=== PATIENT | female | born 1960 | race Caucasian/White ===

== ENCOUNTER 2019-10-19 10:41 | Outpatient (CLI) | payer OTHER, SELFPAY ==
[2019-10-19 11:17] LABS: Hemoglobin A1C 6.2 % (<5.7)
[2019-10-19 11:21] LABS: Alanine Aminotransferase 18 U/L (4-35); Albumin Level 4.1 g/dL (3.5-5.1); Alkaline Phosphatase 75 U/L (38-126); Aspartate Amino Transferase 27 U/L (14-36); Bilirubin,Total 0.4 mg/dL (0.2-1.3); Blood Urea Nitrogen 13 mg/dL (7-17); Calcium 9.6 mg/dL (8.4-10.2); Carbon Dioxide 31 mmol/L (22-30); Chloride 102 mmol/L (98-107); Cholesterol 166 mg/dL (0-200); Estimated Glomerular Filt Rate > 60; Glucose 117 mg/dL (65-105); HDL Direct 59 mg/dL; Potassium 4.3 mmol/L (3.4-5.0); Sodium 138 mmol/L (137-145); Triglycerides 67 mg/dL (<150)
[2019-10-19 11:32] LABS: LDL Cholesterol Direct 81 mg/dL
[2019-10-19 11:54] LABS: Free T4 Free Thyroxine 1.33 ng/mL (0.78-2.19)
== END 2019-10-19 10:42 | disposition home or self-care (01) ==
LOC: ANHLAB 10:43
PROVIDERS: PCP Internal Medicine; Visit Provider Nurse Practitioner
DX: E11.9 Type 2 diabetes mellitus without complications (principal); E03.9 Hypothyroidism, unspecified
CPT/HCPCS: 36415; 80053; 80061; 83036; 84439; 84443

== ENCOUNTER 2020-04-10 11:37 | Inpatient (IN) | payer OTHER, SELFPAY ==
--- NOTE | ~2020-04-10 | XR_ITS ---
EXAMINATION: XR chest 2V DATE: 04/10/2020 13:06 INDICATION: Cough and shortness of breath TECHNIQUE: PA and lateral views of the chest are obtained. COMPARISON: 07/23/2018 FINDINGS: There are airspace opacities of the mid and lower lung zones. There is no pleural effusion or pneumothorax. The cardiomediastinal silhouette is normal. There is mild thoracic spondylosis. IMPRESSION: 1. Airspace opacities of the mid and lower lung zones consistent with pneumonia versus atelectasis. Reviewed, dictated and finalized at location A.
--- NOTE | 2020-04-10 12:12 | ECG_ITS ---
Measurements Intervals [place] Rate: 82 P: 57 CA: 135 QRS: 60 QRSD: 118 T: 12 QT: 364 QTc: 426 Interpretive Statements SINUS RHYTHM ATRIAL PREMATURE COMPLEXES INCOMPLETE RIGHT BUNDLE BRANCH BLOCK BASELINE ARTIFACT- I, II BORDERLINE ECG Electronically Signed On 04-10-2020 14:46:30 CDT by Jesus Degroot D.O.
--- NOTE | 2020-04-10 12:15 | PC.NURSE ---
1129- Pt has decided to leave prior to triage and follow up with his pmd.
[2020-04-10 12:51] VITALS: BP 151/60; PULSE 74; RESP 18; TEMP 37.1; O2SAT 95
[2020-04-10 13:04] LABS: Basophils Percent Auto 0.2 % (0.2-1.2); Eosinophils Percent Auto 0.2 % (0-4.4); Hematocrit 44.2 % (37.0-47.0); Hemoglobin 13.5 g/dL (12.0-15.0); Immature Granulocyte Absolute 0.01 K/mm3 (0.00-0.031); Immature Granulocyte Percent A 0.2 % (0-0.5); Lymphocytes Absolute Auto 0.55 K/mm3 (0.9-3.2); Lymphocytes Percent Auto 12.4 % (18.3-44.2); Mean Corpuscular HGB Conc 30.5 g/dl (32-36); Mean Corpuscular Hemoglobin 27.4 pg (26-34); Mean Corpuscular Volume 89.8 fl (80-100); Mean Platelet Volume 9.5 fl (7.4-10.4); Monocytes Absolute Auto 0.4 K/mm3 (0.1-0.6); Monocytes Percent Auto 8.8 % (2.6-8.5); Neutrophils Absolute Auto 3.5 K/mm3 (1.3-6.7); Neutrophils Percent Auto 78.2 % (45.5-73.1); Platelet Count Result 176 k/mm3 (150-375); Red Blood Count 4.92 M/mm3 (4.2-5.4); Red Cell Distribution Width 15.5 % (11.5-14.5); White Blood Count 4.4 K/mm3 (4.5-10.0)
[2020-04-10 13:15] LABS: Anion Gap 7 mmol/L (8-16); Blood Urea Nitrogen 11 mg/dL (7-17); Calcium 9.1 mg/dL (8.4-10.2); Carbon Dioxide 33 mmol/L (22-30); Chloride 100 mmol/L (98-107); Estimated CRCL calculation 94 ml/min; Estimated Glomerular Filt Rate > 60; Glucose 125 mg/dL (65-105); Sodium 140 mmol/L (137-145)
[2020-04-10 15:01] VITALS: BP 158/72; PULSE 91; RESP 18; O2SAT 95
[2020-04-10 15:37] VITALS: BP 158/98; PULSE 91; RESP 18; O2SAT 96
[2020-04-10] MEDS: AZITHROMYCIN 250 MG TABLET 500 MG PO (16:40)
[2020-04-10 17:04] LABS: Alveolar/Arterial O2 Gradient 39.2 mmHg; Base Excess ABG 2.3 mEq/l (+/-2.0); Fractional Inspired Oxygen 21 %; HCO3 ABG 26.2 mEq/l (22.0-26.0); Oxygen Content ABG 17.9 %vol (16.0-22.0); Oxygen Saturation ABG 93.5 % (95.0-100.0); Oxyhemoglobin 92.1 % THb (90.0-100.0); PCO2 ABG 38.6 mmHg (35.0-45.0); PO2 ABG 64.3 mmHg (80.0-100.0); PO2 FiO2 Ratio Arterial Blood 3.06 %; Total Hemoglobin 13.8 g/dL (12.0-18.0)
[2020-04-10] MEDS: ALBUTEROL SULFATE (*SP) AEROSOL 1 PUFF 6 PUFF INHALATION (17:04)
[2020-04-10 17:06] LABS: Device ROOM AIR; Modified Allen's Test Pass; Site Drawn LEFT RADIAL
--- NOTE | 2020-04-10 17:14 | ED.SOB ---
HPI - SOB/Dyspnea General Chief Complaint: Shortness of Breath/Dyspnea Stated Complaint: cough, nausea, sob Time Seen by Provider: 04/10/20 16:08 Source: patient and family Mode of arrival: ambulatory Limitations: no limitations History of Present Illness HPI Narrative: 60-year-old female Complains of feeling bad for at least a week Multiple complaints of which the most severe is a nonproductive cough and shortness of breath which is much worse whenever she gets up and tries to walk around Also complains of poor appetite fatigue sinus drainage She does have a history of what sounds like a decortication procedure done on the left side at [place] several years ago Recently traveled to the [facility] Her who she lives with is not ill MD elicited complaint: shortness of breath and cough Pertinent past history: COPD and asthma Related Data Home Medications Medication Instructions Recorded Confirmed albuterol sulfate [ProAir HFA] 1 inh INHALATION QID PRN 04/30/19 04/30/19 tizanidine 4 - 8 mg PO Q8H PRN 04/30/19 04/30/19 Allergies Allergy/AdvReac Type Severity Reaction Status Date / Time No Known Allergies Allergy Verified 05/07/19 14:30 Review of Systems Review of Systems: All systems reviewed & are unremarkable except as noted in HPI and below Constitutional: Constitutional: Reports chills, Reports fatigue, Reports fever(s), Denies headache(s) and Denies night sweats Eyes: Eyes: Denies change in vision, Denies loss of vision and Denies other visual disturbances ENT: Denies headache(s), Denies hoarseness, Denies epistaxis, Reports nasal congestion and Denies sore throat Cardiovascular: Cardiovascular: Denies chest pain, Denies leg edema, Denies palpitations and Denies dyspnea Respiratory: Respiratory: Reports cough, Reports dyspnea and Denies wheezing Gastrointestinal: Gastrointestinal: Denies abdominal pain, Denies diarrhea, Reports nausea and Denies vomiting Genitourinary: Genitourinary: Denies hematuria, Denies urinary frequency and Denies dysuria Musculoskeletal: Musculoskeletal: Denies abnormal gait, Reports myalgias, Denies deformity, Denies joint swelling, Denies muscle weakness and Denies numbness Integumentary/Breasts: Skin/Breast: Denies rash, Denies unusual bruising and Denies wounds Neurologic: Denies abnormal gait, Denies headache(s), Denies focal weakness, Denies loss of vision and Denies numbness Psychiatric: Psychiatric: Reports no additional psychiatric complaints Endocrine: Endocrine: Denies palpitations Hematologic/Lymphatic: Hematologic/Lymphatic: Denies easy bleeding and Denies easy bruising Allergic/Immunologic: Allergic/Immunologic: Denies wheezing [facility] Past Medical History Medical History (Updated 04/10/20 @ 18:05 by Jamal Beckman MD) Arthritis Asthma exercise induced Diabetes type 2, controlled GERD (gastroesophageal reflux disease) Hypertension Hypothyroidism Liver disease Obesity YOANA (obstructive sleep apnea) CPAP Surgical History Surgical History (Updated 08/27/19 @ 15:26 by Omayra Hidalgo MA) History of x2 History of cholecystectomy History of nasal septoplasty History of thoracotomy Partial Thoracotomy History of tubal ligation Hx of tonsillectomy Right tibial fracture treated with intramedullary rodding Family History Family History Mother Hypertension Family history of heart disease in male family member before age 55 Father Cerebrovascular accident Family history of diabetes mellitus in first degree relative Family history of malignant neoplasm of kidney Family history of heart disease in male family member before age 55 Sibling Family history of diabetes mellitus in first degree relative Grandparent Diabetes mellitus Other Family history of cardiovascular disease Social History Social History (Updated 08/27/19 @ 15:27 by Omayra Hidalgo
[2020-04-10] MEDS: ACETAMINOPHEN 325 MG TABLET 650 MG (17:18)
[2020-04-10 17:38] LABS: CRP 2.9 mg/dL (<1.0)
[2020-04-10 17:42] VITALS: BP 138/78; PULSE 88; RESP 20; O2SAT 91
--- NOTE | 2020-04-10 17:42 | PC.NURSE ---
patient walked cisneros with pulse ox. desats to 88% with ambulation
[2020-04-10] MEDS: ONDANSETRON INJ 4 MG/2 ML VIAL IV PUSH (18:41)
[2020-04-10 18:50] VITALS: BP 166/89; PULSE 107; RESP 20; TEMP 36.7; O2SAT 90
--- NOTE | 2020-04-10 18:50 | ADMGEN ---
This patient, Madelin Fitzpatrick, was admitted to [facility] Surg Room 327-01. Patient/family oriented to hospital policies and general routines including ID bracelet, bed and alarms, visiting hours, pain management, procedures, bathroom and other care routines, personal items, smoking policy, room service/diet, and visiting hours. Information on how to activate the Rapid Response Team has been discussed. Patient/Family are encouraged to report perceived risks to care and to ask questions if they do not understand what they are told or what they should do.
--- NOTE | 2020-04-10 18:57 | PC.NURSE ---
1853 pt arrived from er, in w/c a/o x3 not distress. placed in room 127
[2020-04-10 20:00] VITALS: BP 134/79; PULSE 92; RESP 18; TEMP 36.7; O2SAT 91
[2020-04-10] MEDS: LACTATED RINGERS 1,000 ML 60 ML IV CONT (20:21)
[2020-04-11] VITALS: BP 142/79; BP 146/63; PULSE 62; PULSE 77; RESP 20; TEMP 36.6; O2SAT 90; O2SAT 93
--- NOTE | 2020-04-11 00:05 | PM.IMHP ---
H&P: HPI History of Present Illness Date/Time: 04/10/20 7950 Chief complaint: Pneumonia Narrative: Madelin Fitzpatrick is a 60 year old female Who has had a past history of having necrotizing pneumonia in the past and had to have have a thoracotomy Or a decortication procedure. She has a history of sleep apnea and does have her CPAP machine. The patient stated that she has been feeling bad for at least the last week. She really did have temperature until today she said her fever was about 100 today. She said she went to [place] in [facility] to celebrate her birthday a week ago and she had drink a lot a alcohol and thought that maybe that she was just having some discomfort from drinking so much alcohol. She has been feeling achy and she has had a productive cough. She said she took code medicine. She said she can't even walk 10 ft without getting short of breath or coughing her head off. When she tries to walk around to get short of breath and coughs. She has not had any change in taste of food but just has not had the appetite and she has had some nausea and abdominal pain as well. she stated that the other people or not having any symptoms at went to [place] with her. She stated that her stay daughter was having some sinus problems but that is chronic for her. She does have a history of asthma as well. Her white count was low at 4.4. Her glucose is 125 and she has not taken her metformin because she has not been eating. C reactive protein 2.9. Her COVID swab is pending. She has been placed on isolation. Chest x-ray was read as airspace opacities of the mid and lower lung zones consistent with pneumonia versus atelectasis. She was started on azithromycin and Rocephin. Also Decadron. Date of service was 04/10/2020 Review of Systems Review of Systems: All systems reviewed & are unremarkable except as noted in HPI and below Constitutional: Constitutional: Reports as per HPI and Reports no additional constitutional complaints Eyes: Eyes: Reports as per HPI and Reports no additional eye complaints ENT: Reports system reviewed and no additional complaints, except as documented and Reports Normal hearing present Cardiovascular: Cardiovascular: Reports no additional cardiovascular complaints Respiratory: Respiratory: Reports no additional respiratory complaints and Reports no additional respiratory complaints Gastrointestinal: Gastrointestinal: Reports as per HPI and Reports no additional gastrointestinal complaints Musculoskeletal: Musculoskeletal: Reports no additional musculoskeletal complaints Integumentary/Breasts: Skin/Breast: Reports system reviewed and no additional complaints, except as docu and Reports as per HPI Neurologic: Reports system reviewed and no additional complaints, except as documented, Reports as per HPI and Reports Normal hearing present Psychiatric: Psychiatric: Reports no additional psychiatric complaints and Reports as per HPI Endocrine: Endocrine: Reports no additional endocrine complaints Hematologic/Lymphatic: Hematologic/Lymphatic: Reports no additional hematologic/lymphatic complaints Allergic/Immunologic: Allergic/Immunologic: Reports no additional allergic/immunologic complaints [facility] Past Medical History Medical History (Updated 04/11/20 @ 00:24 by Sheila Raymundo NP) Arthritis Asthma exercise induced Diabetes type 2, controlled GERD (gastroesophageal reflux disease) Hypertension Hypothyroidism Liver disease Obesity YOANA (obstructive sleep apnea) CPAP Surgical History Surgical History History of x2 History of cholecystectomy History of nasal septoplasty History of thoracotomy Partial Thoracotomy History of tubal ligation Hx of tonsillectomy Right tibial fracture treated with intramedullary rodding Family History Family History Mother Hyp
[2020-04-11 06:00] VITALS: BP 161/87; PULSE 80; RESP 20; TEMP 36.6; O2SAT 93
[2020-04-11] MEDS: LEVOTHYROXINE SODIUM 100 MCG TABLET PO (06:07)
[2020-04-11 06:35] LABS: Hematocrit 39.3 % (37.0-47.0); Hemoglobin 12.1 g/dL (12.0-15.0); Immature Granulocyte Absolute 0.01 K/mm3 (0.00-0.031); Immature Granulocyte Percent A 0.7 % (0-0.5); Lymphocytes Absolute Auto 0.42 K/mm3 (0.9-3.2); Lymphocytes Percent Auto 27.8 % (18.3-44.2); Mean Corpuscular HGB Conc 30.8 g/dl (32-36); Mean Corpuscular Hemoglobin 26.7 pg (26-34); Mean Corpuscular Volume 86.8 fl (80-100); Mean Platelet Volume 9.2 fl (7.4-10.4); Monocytes Absolute Auto 0.2 K/mm3 (0.1-0.6); Monocytes Percent Auto 14.6 % (2.6-8.5); Neutrophils Absolute Auto 0.9 K/mm3 (1.3-6.7); Neutrophils Percent Auto 56.9 % (45.5-73.1); Platelet Count Result 178 k/mm3 (150-375); Red Blood Count 4.53 M/mm3 (4.2-5.4); Red Cell Distribution Width 14.9 % (11.5-14.5)
[2020-04-11 06:48] LABS: Lactic Acid Reflex 0.9 mmol/L (0.7-2.1)
[2020-04-11 06:50] LABS: CRP 3.2 mg/dL (<1.0); Lipase 101 U/L (23-300); Magnesium 1.9 mg/dL (1.6-2.3)
[2020-04-11 07:29] LABS: White Blood Count 1.5 K/mm3 (4.5-10.0)
[2020-04-11 07:36] LABS: Thyroid Stimulating Hormone Reflex 0.616 uIU/mL (0.465-4.68)
[2020-04-11 07:47] LABS: Anion Gap 7 mmol/L (8-16); Blood Urea Nitrogen 12 mg/dL (7-17); Calcium 8.9 mg/dL (8.4-10.2); Carbon Dioxide 30 mmol/L (22-30); Chloride 102 mmol/L (98-107); Estimated CRCL calculation 122 ml/min; Estimated Glomerular Filt Rate > 60; Glucose 136 mg/dL (65-105); Potassium 3.9 mmol/L (3.4-5.0); Sodium 139 mmol/L (137-145)
[2020-04-11] MEDS: PANTOPRAZOLE SOD SESQUIHYDRATE 20 MG TAB PO ×2 (08:26→16:38)
[2020-04-11] MEDS: lisinopriL 20 MG TABLET PO (08:27)
[2020-04-11 09:05] VITALS: PULSE 85; RESP 18; O2SAT 95
[2020-04-11 09:15] LABS: White Blood Count 2.2 K/mm3 (4.5-10.0)
[2020-04-11 11:53] LABS: Glucose Point of Care 146 (65-105)
[2020-04-11] MEDS: LACTATED RINGERS 1,000 ML 60 ML IV CONT (12:15)
[2020-04-11] MEDS: ACETAMINOPHEN 325 MG TABLET 650 MG PO ×2 (12:23→19:08)
[2020-04-11 14:00] VITALS: BP 145/73; PULSE 68; RESP 16; TEMP 36.7; O2SAT 92
[2020-04-11 14:12] LABS: SARS-CoV-2 RNA PCR Positive
--- NOTE | 2020-04-11 15:15 | PM.IMPN ---
Progress Note: A&P Assessment and Plan (1) Pneumonia due to 2019 novel coronavirus: Code(s): U07.1 - COVID-19; J12.89 - Other viral pneumonia Status: Acute Assessment and Plan: Patient tested positive for COVID on 04/10/2020. Symptoms had been ongoing approximately 7 days. She complains of productive cough and [place]. She is maintaining adequate oxygen saturations on room air. she has remained afebrile. At this time, there is no indication for steroids or antiviral therapy as she has no oxygen requirements continue isolation precautions discontinue IV antibiotics which were initiated for possible bacterial pneumonia; superimposed bacterial infection is unlikely Supportive care with antipyretics, expectorants, and bronchodilators Supplemental O2 as needed to maintain O2 saturations >92% (2) YOANA (obstructive sleep apnea): Code(s): G47.33 - Obstructive sleep apnea (adult) (pediatric) Status: Acute Assessment and Plan: Continue CPAP titrated to home settings (3) Hypothyroidism: Code(s): E03.9 - Hypothyroidism, unspecified Status: Chronic Assessment and Plan: TSH is within limits continue levothyroxine (4) Hypertension: Code(s): I10 - Essential (primary) hypertension Status: Chronic Assessment and Plan: blood pressures reviewed and are reasonably controlled in 140s to 150 systolic. continue lisinopril monitor blood pressures daily (5) Diabetes type 2, controlled: Code(s): E11.9 - Type 2 diabetes mellitus without complications Status: Chronic Assessment and Plan: Most recent A1c is 6.2 from September 2019. Blood sugars have been generally well controlled. Continue Accu-Cheks achs, SSI, and hypoglycemia protocol check updated A1c metformin is on hold at this time (6) Leukopenia: Code(s): D72.819 - Decreased white blood cell count, unspecified Status: Acute Assessment and Plan: White blood cell count is low. Upon review of prior labs, this seems to be a new finding. Lymphocyte count is low. This can likely be attributed to acute viral infection. Immunodeficiency or malignant etiologies cannot be excluded at this time, therefore careful monitoring will be required. Subjective Date/time seen: 04/11/20 15:15 Interval history: Date of service: 04/11/2020 Madelin Fitzpatrick is a 60 year old female with a history of asthma, YOANA, hypertension,, type 2 diabetes mellitus who is seen in follow-up for COVID-19 pneumonia. she reports that she is feeling much better today as compared to presentation. She continues to endorse cough productive of clear sputum. She endorses dyspnea on exertion and minimal activity will induce coughing episodes. She denies shortness of breath at rest. She denies orthopnea or PND. She denies chest pain or palpitations. She previously was experiencing nausea and vomiting but this seems to be improving. She has not vomited since admission. She had a loose stool this morning. She denies dysuria or hematuria. Her appetite is diminished. She denies anosmia or dysgeusia. Denies dizziness or lightheadedness. She has a dull headache. Review of Systems Review of Systems: Narrative: Twelve systems reviewed with pertinent positives and negatives as per HPI. Exam Narrative: Exam Narrative: Ms. Fitzpatrick is an obese, well-appearing 60-year-old female who is lying supine in bed. She appears comfortable and is in NARD. HR 80, BP 161/87, RR 20, T 97.8?, 93% on room air Neuro: awake, alert and oriented x4, speech clear, no focal neuro deficits noted HEENMT: normocephalic, atraumatic, EOMI, sclerae anicteric, moist oral mucosa, tongue midline, nares patent Neck: supple, no lymphadenopathy Respiratory: clear to auscultation bilaterally, no crackles, wheezes, or rhonchi noted with low-sensitivity isolation stethoscope, nonlabored breathing Cardio: regular rat
[2020-04-11 17:08] LABS: Glucose Point of Care 132 (65-105)
[2020-04-11 20:00] VITALS: BP 152/74; PULSE 72; RESP 18; TEMP 36.7; O2SAT 93
[2020-04-11] MEDS: guaiFENesin 12 HR 600 MG TABCR PO (21:17)
[2020-04-11 22:26] LABS: Glucose Point of Care 167 (65-105)
[2020-04-12] MEDS: ACETAMINOPHEN 325 MG TABLET 650 MG PO ×2 (03:01→08:31)
[2020-04-12 04:00] VITALS: BP 153/75; PULSE 66; RESP 18; TEMP 36.9; O2SAT 92
[2020-04-12] MEDS: LEVOTHYROXINE SODIUM 100 MCG TABLET PO (06:16)
[2020-04-12 06:17] VITALS: O2SAT 91
[2020-04-12] MEDS: LACTATED RINGERS 1,000 ML 60 ML IV CONT (06:17)
[2020-04-12 06:54] LABS: Hematocrit 40.3 % (37.0-47.0); Hemoglobin 12.4 g/dL (12.0-15.0); Mean Corpuscular HGB Conc 30.8 g/dl (32-36); Mean Corpuscular Hemoglobin 27.4 pg (26-34); Mean Platelet Volume 9.3 fl (7.4-10.4); Platelet Count Result 193 k/mm3 (150-375); Red Blood Count 4.53 M/mm3 (4.2-5.4); Red Cell Distribution Width 15.1 % (11.5-14.5); White Blood Count 5.2 K/mm3 (4.5-10.0)
[2020-04-12 07:18] LABS: Alanine Aminotransferase 25 U/L (4-35); Albumin Level 3.5 g/dL (3.5-5.1); Alkaline Phosphatase 60 U/L (38-126); Anion Gap 3 mmol/L (8-16); Aspartate Amino Transferase 38 U/L (14-36); Bilirubin,Total 0.4 mg/dL (0.2-1.3); Blood Urea Nitrogen 13 mg/dL (7-17); Calcium 8.9 mg/dL (8.4-10.2); Carbon Dioxide 36 mmol/L (22-30); Chloride 100 mmol/L (98-107); Estimated CRCL calculation 106 ml/min; Estimated Glomerular Filt Rate > 60; Glucose 104 mg/dL (65-105); Lactate Dehydrogenase 476 U/L (313-618); Potassium 3.5 mmol/L (3.4-5.0); Sodium 139 mmol/L (137-145)
[2020-04-12 07:46] LABS: Hemoglobin A1C 6.3 % (<5.7)
[2020-04-12 08:00] VITALS: PULSE 73; RESP 18; O2SAT 90
[2020-04-12] MEDS: lisinopriL 20 MG TABLET PO (08:08)
[2020-04-12] MEDS: guaiFENesin 12 HR 600 MG TABCR PO (08:08)
[2020-04-12] MEDS: ENOXAPARIN 40 MG/0.4 ML SYRINGE SUB-Q (08:08)
[2020-04-12] MEDS: PANTOPRAZOLE SOD SESQUIHYDRATE 20 MG TAB PO (08:09)
[2020-04-12 09:30] VITALS: TEMP 37.3
[2020-04-12 11:06] LABS: Glucose Point of Care 93 (65-105)
--- NOTE | 2020-04-12 11:09 | PM.DS ---
DS: Admitting Diagnosis Admitting Diagnosis Admitting Diagnosis: Pneumonia DS: Discharge Diagnosis Discharge Diagnosis (1) Pneumonia due to 2019 novel coronavirus: Code(s): U07.1 - COVID-19; J12.89 - Other viral pneumonia Status: Acute Assessment and Plan: Patient tested positive for COVID-19 on 04/10/2020. Symptoms had been ongoing approximately 7 days. She remained afebrile. She did not require any supplemental oxygen. Given her lack of oxygen requirements, there was no indication for IV steroids or antivirals. She was initially started on IV ceftriaxone and azithromycin for possible bacterial pneumonia which was discontinued after positive covid result was obtained. Supportive care was provided including bronchodilators and mucinex. Discussed need for self-isolation for 10 days following symptom onset, improvement of symptoms, and afebrile >24 hours without antipyretics. (2) YOANA (obstructive sleep apnea): Code(s): G47.33 - Obstructive sleep apnea (adult) (pediatric) Status: Acute Assessment and Plan: CPAP was not used during hospital stay due to risk for aerosolization. Recommended that she avoid using CPAP at home until she met criteria for discontinuing isolation, 10 days after onset of symptoms and symptomatic improvement. (3) Hypothyroidism: Code(s): E03.9 - Hypothyroidism, unspecified Status: Chronic Assessment and Plan: TSH is within limits. Continue levothyroxine (4) Hypertension: Code(s): I10 - Essential (primary) hypertension Status: Chronic Assessment and Plan: Blood pressures reviewed dailhy and remained reasonably controlled in the 140-150s. Continue lisinopril. (5) Diabetes type 2, controlled: Code(s): E11.9 - Type 2 diabetes mellitus without complications Status: Chronic Assessment and Plan: A1c is 6.3 (04/12/20) Blood sugars reviewed daily and remained well controlled. Continue metformin. (6) Leukopenia: Code(s): D72.819 - Decreased white blood cell count, unspecified Status: Acute Assessment and Plan: White blood cell count low with low lymphocytes. Upon review of prior labs, this seems to be a new finding. This can more than likely be attributed to acute viral infection. Immunodeficiency or malignant etiologies considered, but felt to be less likely given WBC improvement. WBC improved to 5.2 at time of discharge, supporting acute viral infection as most likely etiology. She should repeat CBC in 1 week and follow up with PCP. DS: Summary Hospital Course Reason for hospitalization: shortness of breath Hospital Course: date of admission: 04/10/2020 date of discharge: 04/12/2020 Madelin Fitzpatrick is 6-year-old female with a history of asthma, type 2 diabetes mellitus, hypertension, hypothyroidism, and YOANA presented to the emergency department on 04/10/2020 with complaints of shortness of breath and cough productive of clear sputum, poor appetite, and fatigue. She had recently traveled with a group of friends but denies any sick contacts. At presentation, vital signs stable and afebrile, WBC 4.4, H&H 13.5 and 44.2, platelets 176, electrolytes stable, glucose 125, CRP 2.9, ABG performed demonstrating hypoxemia, and CXR with airspace opacities of the mid and lower lung zones consistent with pneumonia. She was admitted to the hospitalist service for further evaluation and treatment. She was tested for COVID and positive result was reported on 04/11/2020. She required brief 2 L supplemental oxygen overnight as she was not able to use her CPAP machine due to risk for aerosolization. Other than that, she had no oxygen requirements. Because of this no antivirals or steroids were indicated. Her dyspnea on exertion improved and her cough loosened. Preliminary blood cultures showed NGTD and final cultures will be monitored. She began feeling much better and requested discharge home, where she
[2020-04-12 12:20] LABS: Procalcitonin <0.10 ng/mL (<0.10)
== END 2020-04-12 11:33 | disposition home or self-care (01) | DRG 177 ==
LOC: ANHED 18:05 → ANH3MEDSUR 04-11 01:15
PROVIDERS: Nurse Practitioner; Admitting Provider Internal Medicine; Emergency Provider Emergency Medicine; PCP Internal Medicine; Visit Provider Physician Assistant
DX: U07.1 COVID-19 (principal); J12.89 Other viral pneumonia; G47.33 Obstructive sleep apnea (adult) (pediatric); E03.9 Hypothyroidism, unspecified; I10 Essential (primary) hypertension; E11.9 Type 2 diabetes mellitus without complications
CPT/HCPCS: 36415; 36600; 71046; 80048; 80053; 82728; 82805; 83036; 83605; 83615; 83690; 83735; 84145; 84443; 85025; 85027; 85048; 86140; 87040; 87635; 93005; 94667; 96374; 99285; A9270; C9803; J0696; J1100; J1650; J2405; J7120; U0003

== ENCOUNTER 2020-04-25 11:56 | Outpatient (CLI) | payer OTHER, SELFPAY ==
[2020-04-25 12:20] LABS: Alanine Aminotransferase 27 U/L (4-35); Albumin Level 4.2 g/dL (3.5-5.1); Alkaline Phosphatase 60 U/L (38-126); Anion Gap 7 mmol/L (8-16); Aspartate Amino Transferase 40 U/L (14-36); Bilirubin,Total 0.4 mg/dL (0.2-1.3); Blood Urea Nitrogen 12 mg/dL (7-17); Calcium 9.9 mg/dL (8.4-10.2); Carbon Dioxide 33 mmol/L (22-30); Chloride 102 mmol/L (98-107); Cholesterol 158 mg/dL (0-200); Estimated Glomerular Filt Rate > 60; Glucose 109 mg/dL (65-105); HDL Direct 54 mg/dL; Potassium 4.7 mmol/L (3.4-5.0); Sodium 142 mmol/L (137-145); Triglycerides 177 mg/dL (<150)
[2020-04-25 12:31] LABS: LDL Cholesterol Direct 72 mg/dL
[2020-04-25 12:51] LABS: Thyroid Stimulating Hormone 0.633 uIU/mL (0.465-4.680)
== END 2020-04-25 11:57 | disposition home or self-care (01) ==
PROVIDERS: PCP Internal Medicine; Visit Provider Internal Medicine
DX: E78.5 Hyperlipidemia, unspecified (principal); Z79.899 Other long term (current) drug therapy; I10 Essential (primary) hypertension; E11.9 Type 2 diabetes mellitus without complications; E03.9 Hypothyroidism, unspecified
CPT/HCPCS: 36415; 80053; 80061; 83036; 84443

== ENCOUNTER → 2020-07-15 11:54 | Outpatient (CLI) | payer OTHER, SELFPAY ==
--- NOTE | ~2020-07-15 | US_ITS ---
EXAMINATION: US thyroid DATE: 07/15/2020 12:17 INDICATION: Nontoxic multinodular goiter. TECHNIQUE: Multiple ultrasound images of the thyroid were obtained. COMPARISON: Ultrasound 07/08/2017, 04/21/2015 FINDINGS: The right thyroid lobe measures 3.7 x 1.2 x 1.0 cm. The left thyroid lobe measures 4.2 x 1.9 x 1.5 c m. The thyroid is diffusely heterogeneous and hypoechoic. No discrete nodule. Vascularity is normal. IMPRESSION: 1. Chronically heterogeneous thyroid, likely chronic thyroiditis. Reviewed, dictated and finalized at location B. DRIER
== END ==
PROVIDERS: PCP Internal Medicine; Visit Provider Nurse Practitioner
DX: E04.9 Nontoxic goiter, unspecified (principal)
CPT/HCPCS: 76536

== ENCOUNTER 2020-10-10 09:30 | Outpatient (CLI) | payer OTHER, SELFPAY ==
[2020-10-10 09:58] LABS: Alanine Aminotransferase 22 U/L (4-35); Albumin Level 4.1 g/dL (3.5-5.1); Alkaline Phosphatase 64 U/L (38-126); Anion Gap 3 mmol/L (8-16); Aspartate Amino Transferase 37 U/L (14-36); Bilirubin,Total 0.4 mg/dL (0.2-1.3); Blood Urea Nitrogen 13 mg/dL (7-17); Calcium 9.4 mg/dL (8.4-10.2); Carbon Dioxide 34 mmol/L (22-30); Chloride 104 mmol/L (98-107); Estimated Glomerular Filt Rate 57; Glucose 140 mg/dL (65-105); Potassium 4.5 mmol/L (3.4-5.0); Sodium 141 mmol/L (137-145)
[2020-10-10 10:24] LABS: Creatinine Urine 157.8 mg/dL
[2020-10-10 10:29] LABS: MALB Creatinine Ratio 5.2 mg/g (0-30); Microalbumin Urine Random 8.2 mg/L (0-16.7)
== END 2020-10-10 09:31 | disposition home or self-care (01) ==
PROVIDERS: PCP Internal Medicine; Visit Provider Nurse Practitioner
DX: E03.9 Hypothyroidism, unspecified (principal); E11.9 Type 2 diabetes mellitus without complications
CPT/HCPCS: 36415; 80053; 82043; 83036; 84443

== ENCOUNTER 2020-11-12 09:01 | Outpatient (CLI) | payer OTHER, SELFPAY ==
--- NOTE | ~2020-11-12 | MM_ITS ---
EXAMINATION: MM screening [facility] w rizwan HISTORY: Screening TECHNIQUE: Craniocaudal and mediolateral oblique 3-D tomosynthesis images were obtained and synthetic 2-D images were generated. CAD analysis was submitted and interpreted. COMPARISON: Comparison to multiple prior studies sequentially, with oldest reviewed study dated 04/27. BREAST PARENCHYMAL COMPOSITION: There are scattered areas of fibroglandular density. FINDINGS: There is no evidence of suspicious mass, calcification, or architectural distortion to sugg est malignancy in either breast. There has been no suspicious interval change. IMPRESSION: 1. No mammographic evidence of malignancy. 2. Recommend routine screening mammography in one year. BI-RADS Category 1: Negative Reviewed, dictated and finalized at location A.
== END 2020-11-12 09:02 | disposition home or self-care (01) ==
LOC: ANHIMG 09:03
PROVIDERS: PCP Internal Medicine; Visit Provider Nurse Practitioner
DX: Z12.31 Encounter for screening mammogram for malignant neoplasm of breast (principal)
CPT/HCPCS: 77063; 77067

== ENCOUNTER 2020-12-10 15:21 | Outpatient (CLI) | payer OTHER, SELFPAY ==
--- NOTE | ~2020-12-10 | US_ITS ---
EXAMINATION: US venous doppler [facility] EXAM DATE: 12/10/2020 16:10 INDICATION: Left leg pain. TECHNIQUE: Multiple grayscale, color flow and Doppler images of the left lower extremity deep venous system were obtained and reviewed. Comparison is made to prior examination from 06/16/2019. FINDINGS: The left common femoral, femoral and profunda veins demonstrate normal color flow, respirat ory variation, augmentation and compressibility. Compressibility, color flow confirmed within the le ft popliteal, posterior tibial, peroneal, and greater saphenous veins. IMPRESSION: 1. No left lower extremity deep venous thrombosis. Reviewed, dictated and finalized at location B.
== END 2020-12-10 15:22 | disposition home or self-care (01) ==
LOC: ANHIMG 15:25
PROVIDERS: PCP Internal Medicine; Visit Provider Nurse Practitioner
DX: M79.604 Pain in right leg (principal)
CPT/HCPCS: 93971

== ENCOUNTER 2021-01-07 09:26 | Outpatient (CLI) | payer OTHER, SELFPAY ==
--- NOTE | ~2021-01-07 | DEXA_ITS ---
Bone Density Report Name: Madelin Fitzpatrick Age: 60 Sex: Female Ethnicity: White Date of : 1960 Indication: postmenopausal; inflammatory bowel disease; Referring Provider: Madelin Mason Study: Bone densitometry was performed. Exam Date: January 07, 2021 Accession number: [id number] Bone Density: Region BMD T-score Z-score Classification AP Spine (L1-L4) 1.081 0.3 1.8 Normal Femoral Neck (Left) 0.721 -1.2 0.2 Osteopenia Total Hip (Left) 1.051 0.9 1.9 Normal Total Hip Bilateral Avg 1.041 0.8 1.8 Normal Femoral Neck (Right) 0.796 -0.5 0.8 Normal Total Hip (Right) 1.029 0.7 1.7 Normal World Health Organization criteria for BMD impression classify patients as: Normal (T-score at or above -1.0), Osteopenia (T-score between -1.0 and -2.5), or Osteoporosis (T-score at or below -2.5). 10-year Fracture Risk(1): Major Osteoporotic Fracture 6.1% Hip Fracture 0.3% Reported Risk Factors: [place] (), Neck BMD=0.721, BMI=48.1 Input outside FRAX(R) limits. Adjusted to:Dniksp=552 kg (1) FRAX(R) Version 3.08. Fracture probability calculated for an untreated patient. Fracture probability may be lower if the patient has received treatment. Clinical Information Provided by Patient: Has the following medical conditions: Inflammatory bowel diseases Patient maximum height was 63.5 Menopause Age: 55 No regular weight bearing exercise Drinks caffeinated beverages Onset of menses at age 13 Number of children 2 Impression: The patient has low bone mass, based on the Left Femoral Neck T-score. The patient has an estimated ten-year risk of hip fracture of 0.3% and an estimated ten-year risk of major fracture of 6.1%, based on the WHO FRAX algorithm. Discussion: BONE DENSITY IS LOW AT ONE OR MORE SKELETAL SITES. This patient's lowest T-score is low at one or more skeletal sites. It meets the World Health Organization's (WHO) criteria for ?low bone mass? (T-score between -1.0 and -2.5). The patient's 10-year risk of fracture as calculated by FRAX is less than the threshold where pharmacological therapy is recommended by the National Osteoporosis Foundation (NOF). However, all treatment decisions require clinical judgment and consideration of individual patient factors, including patient preferences, comorbidities, previous drug use, risk factors not captured in the FRAX model (e.g., frailty, falls, vitamin D deficiency, increased bone turnover, interval significant decline in bone density) and possible under or overestimation of fracture risk by FRAX. The patient should follow a healthful lifestyle (good nutrition with adequate calcium and vitamin D, and appropriate weight-bearing exercise). Follow-Up: Consider repeating this study in 2 to 3 years to reassess this patient's status, or sooner if there is some new cli
== END 2021-01-07 09:27 | disposition home or self-care (01) ==
LOC: ANHIMG 09:28
PROVIDERS: PCP Internal Medicine; Visit Provider Nurse Practitioner
DX: Z78.0 Asymptomatic menopausal state (principal); M85.852 Other specified disorders of bone density and structure, left thigh
CPT/HCPCS: 77080

== ENCOUNTER → 2021-03-20 09:59 | Outpatient (CLI) | payer OTHER, SELFPAY ==
--- NOTE | ~2021-03-20 | US_ITS ---
EXAMINATION: US pelvic complete w TV DATE: 03/20/2021 10:24 INDICATION: Postmenopausal bleeding Comparison:No prior studies for comparison. TECHNIQUE: Multiple transabdominal and endovaginal sonographic images of the pelvis performed. FINDINGS: The uterus measures 11.3 x 3.9 x 5.1 cm. The endometrial complex measures 7 mm. The ovaries are not visualized. No adnexal masses or fluid collections. There is no free fluid in the pelvis. There are no abnormal masses seen on either side. IMPRESSION: 1. Thickened endomtrial complex. The differential diagnosis includes endometrial hyperplasia, polyp a nd carcinoma. Biopsy is recommended. 2: Enlarged uterus. Reviewed, dictated and finalized at location A. IMPRESSION: 1. Thickened endomtrial complex. The differential diagnosis includes endometria l hyperplasia, polyp and carcinoma. Biopsy is recommended. 2: Enlarged uterus.
== END ==
PROVIDERS: PCP Internal Medicine; Visit Provider Obstetrics & Gynecology
DX: N95.0 Postmenopausal bleeding (principal); R93.89 Abnormal findings on diagnostic imaging of other specified body structures; N85.2 Hypertrophy of uterus
CPT/HCPCS: 76830; 76856

== ENCOUNTER 2021-04-24 10:59 | Outpatient (CLI) | payer OTHER, SELFPAY ==
[2021-04-24 12:02] LABS: Alanine Aminotransferase 24 U/L (4-35); Albumin Level 4.5 g/dL (3.5-5.1); Alkaline Phosphatase 70 U/L (38-126); Anion Gap 7 mmol/L (8-16); Aspartate Amino Transferase 35 U/L (14-36); Bilirubin,Total 0.5 mg/dL (0.2-1.3); Blood Urea Nitrogen 15 mg/dL (7-17); Carbon Dioxide 32 mmol/L (22-30); Chloride 102 mmol/L (98-107); Cholesterol 174 mg/dL (0-200); Estimated Glomerular Filt Rate > 60; Glucose 119 mg/dL (65-110); HDL Direct 74 mg/dL; Potassium 4.6 mmol/L (3.4-5.0); Sodium 141 mmol/L (137-145); Triglycerides 61 mg/dL (<150)
[2021-04-24 12:12] LABS: LDL Cholesterol Direct 73 mg/dL
== END 2021-04-24 11:00 | disposition home or self-care (01) ==
LOC: ANHLAB 11:01
PROVIDERS: PCP Internal Medicine; Visit Provider Nurse Practitioner
DX: E11.9 Type 2 diabetes mellitus without complications (principal); E03.9 Hypothyroidism, unspecified
CPT/HCPCS: 36415; 80053; 80061; 83036; 84443

== ENCOUNTER 2021-04-25 11:08 | Emergency (ER) | payer OTHER, SELFPAY ==
[2021-04-25 11:17] VITALS: BP 172/68; PULSE 77; RESP 18; TEMP 36.3; O2SAT 98
--- NOTE | 2021-04-25 11:42 | ED.URI ---
HPI - URI/Sore Throat General Chief Complaint: Upper Respiratory Infection Stated Complaint: SINUS CONGESTION Time Seen by Provider: 04/25/21 11:26 Source: patient and RN notes reviewed Mode of arrival: ambulatory Limitations: no limitations History of Present Illness HPI Narrative: Patient presents today complaining of 5-day history of left frontal headache, left maxillary sinus pain. Denies nasal congestion, cough, sore throat. She has been taking Mucinex and using Nasacort with some relief. Patient uses a CPAP, which has been exacerbating her symptoms.. Patient is scheduled for hysteroscopy in 3 days and wanted to make sure she did not need to get started on antibiotics. MD elicited complaint: sinus pain Related Data Home Medications Medication Instructions Recorded Confirmed albuterol sulfate [ProAir HFA] 1 inh INHALATION QID PRN 04/30/19 04/17/21 multivitamin 1 tablet PO DAILY 10/14/20 04/17/21 Allergies Allergy/AdvReac Type Severity Reaction Status Date / Time No Known Allergies Allergy Verified 04/17/21 10:09 Review of Systems Review of Systems: CONSTITUTIONAL: Denies body aches, fever, chills, or sweats. EYES: Denies visual changes, redness, or discharge. ENT: Denies rhinorrhea, congestion, sore throat, or otalgia. + Sinus pain and pressure CARDIOVASCULAR: Denies chest pain, palpitations, or edema. RESPIRATORY: Denies cough or dyspnea. GASTROINTESTINAL: Denies abdominal pain, nausea, vomiting, or diarrhea. GENITOURINARY: Denies dysuria or hematuria. SKIN: Denies rash, itching, or wounds. MUSCULOSKELETAL: Denies back pain, joint pain, or myalgia. NEUROLOGIC: Denies headache, numbness, tingling, or weakness. PSYCH: Denies depression or anxiety. [facility] Past Medical History Medical History Arthritis Asthma exercise induced Diabetes type 2, controlled GERD (gastroesophageal reflux disease) History of 2019 novel coronavirus disease (COVID-19) History of blood transfusion Hypertension Hypothyroidism Liver disease Missed Obesity YOANA (obstructive sleep apnea) CPAP Surgical History Surgical History History of bilateral tubal ligation History of x2 History of cholecystectomy History of nasal septoplasty History of thoracotomy Partial Thoracotomy Hx of tonsillectomy Right tibial fracture treated with intramedullary rodding Family History Family History Mother Hypertension COPD (chronic obstructive pulmonary disease) Kidney failure Heart problem Father Cerebrovascular accident Family history of diabetes mellitus in first degree relative Family history of malignant neoplasm of kidney Family history of heart disease in male family member before age 55 Cancer of pituitary gland CHF (congestive heart failure) Sibling Family history of diabetes mellitus in first degree relative sister and brother Hypertension brother Heart disease Cerebrovascular accident sister Heart problem sister Carotid body tumor sister Cirrhosis sister Hypercholesteremia brother Grandparent Diabetes mellitus Heart problem Other Family history of cardiovascular disease Social History Social History Social History: the patient lives with her and desires to have him as a durable power patent attorney for healthcare. The patient desires to be a full code. She has 2 children. 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 The patient occasionally drinks alcohol especially on her birthday. she denies any marijuana or illicit drugs. She is a former smoker. Caffeine use: coffee 1 1/2 cups/day & iced tea Smoking packs per day: 1 Smoking cigarettes per day: 20.0 Years smoked: 21 Smoking pack-years:
== END 2021-04-25 11:48 | disposition home or self-care (01) ==
PROVIDERS: Emergency Provider Nurse Practitioner; PCP Internal Medicine
DX: J01.90 Acute sinusitis, unspecified (principal); Z87.891 Personal history of nicotine dependence; M19.90 Unspecified osteoarthritis, unspecified site; J45.990 Exercise induced bronchospasm; E11.9 Type 2 diabetes mellitus without complications; K21.9 Gastro-esophageal reflux disease without esophagitis; Z86.16 Personal history of COVID-19; I10 Essential (primary) hypertension; E03.9 Hypothyroidism, unspecified; G47.33 Obstructive sleep apnea (adult) (pediatric); E66.9 Obesity, unspecified; Z68.43 Body mass index [BMI] 50.0-59.9, adult
CPT/HCPCS: 99213; G0463

== ENCOUNTER 2021-04-27 01:33 | Day surgery (SDC) | payer OTHER, SELFPAY ==
[2021-04-16 13:19] VITALS: BMI 56.7
--- NOTE | 2021-04-23 12:22 | PM.IMHP ---
H&P: HPI History of Present Illness Date/Time: 04/23/21 12:22 61 y/o with a few days bleeding in early February then spotting once or twice since. Frequent cramping. Chief Complaint: postmenopausal bleeding Review of Systems Review of Systems: All systems reviewed & are unremarkable except as noted in HPI and below FOR[facility]LY [facility] Past Medical History Medical History (Updated 04/17/21 @ 10:31 by Steph Nation MD) Arthritis Asthma exercise induced Diabetes type 2, controlled GERD (gastroesophageal reflux disease) History of 2019 novel coronavirus disease (COVID-19) History of blood transfusion Hypertension Hypothyroidism Liver disease Missed Obesity YOANA (obstructive sleep apnea) CPAP Surgical History Surgical History History of bilateral tubal ligation History of x2 History of cholecystectomy History of nasal septoplasty History of thoracotomy Partial Thoracotomy Hx of tonsillectomy Right tibial fracture treated with intramedullary rodding Family History Family History Mother Hypertension COPD (chronic obstructive pulmonary disease) Kidney failure Heart problem Father Cerebrovascular accident Family history of diabetes mellitus in first degree relative Family history of malignant neoplasm of kidney Family history of heart disease in male family member before age 55 Cancer of pituitary gland CHF (congestive heart failure) Sibling Family history of diabetes mellitus in first degree relative sister and brother Hypertension brother Heart disease Cerebrovascular accident sister Heart problem sister Carotid body tumor sister Cirrhosis sister Hypercholesteremia brother Grandparent Diabetes mellitus Heart problem Other Family history of cardiovascular disease Social History Social History Social History: the patient lives with her and desires to have him as a durable power finance attorney for healthcare. The patient desires to be a full code. She has 2 children. 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 The patient occasionally drinks alcohol especially on her birthday. she denies any marijuana or illicit drugs. She is a former smoker. 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 Gender identity (if verbalized by the patient): Female Sexual Orientation (if Verbalized by the Patient): Straight or Heterosexual Spiritual care concerns: No Meds Home Medications and Allergies Home Medications Medication Instructions Recorded Confirmed Type albuterol sulfate [ProAir HFA] 1 inh INHALATION QID PRN 04/30/19 04/17/21 History multivitamin 1 tablet PO DAILY 10/14/20 04/17/21 History levothyroxine 100 mcg tablet See Rx Instructions .ROUTE 11/26/20 04/17/21 Rx .COMPLEX #90 tablet omeprazole 20 mg capsule,delayed 20 mg PO BID #180 cap 11/26/20 04/17/21 Rx release cyclobenzaprine 5 mg tablet 5 mg PO QHS PRN #30 tablet 12/10/20 04/17/21 Rx lisinopril 20 mg tablet 20 mg PO DAILY #90 tablet 12/22/20 04/17/21 Rx metformin 1,000 mg tablet 1,000 mg PO BID #180 tablet 12/22/20 04/17/21 Rx ibuprofen 800 mg tablet 800 mg PO TID PRN #60 tablet 01/26/21 04/17/21 Rx Allergies Allergy/AdvReac Type Severity Reaction Status Date / Time No Known Allergies Allergy Verified 04/17/21
[2021-04-27] VITALS (8 sets, daily range): BP systolic 145–168; BP diastolic 76–98; PULSE 61–88; RESP 10–20; TEMP 36.1–36.6; O2SAT 98–100; BMI 56.2
[2021-04-27] MEDS: ACETAMINOPHEN 500 MG TABLET 1000 MG PO (11:39)
[2021-04-27] MEDS: LACTATED RINGERS 1,000 ML 30 ML IV CONT ×2 (11:59→14:59)
[2021-04-27 12:30] LABS: Anion Gap 9 mmol/L (8-16); Blood Urea Nitrogen 20 mg/dL (7-17); Carbon Dioxide 30 mmol/L (22-30); Chloride 101 mmol/L (98-107); Estimated CRCL calculation 102 ml/min; Estimated Glomerular Filt Rate > 60; Glucose 113 mg/dL (65-110); Potassium 4.2 mmol/L (3.4-5.0); Sodium 140 mmol/L (137-145)
--- NOTE | 2021-04-27 12:30 | WPDHPUPDATE1 ---
History and Physical Update Update Date/Time: 04/27/21 12:30 History and Physical has been reviewed, including an updated exam of the patient. There are NO changes in the patient's condition. Risks, benefits, and alternatives have been discussed and questions answered. Patient agrees to proceed with procedure.
--- NOTE | 2021-04-27 12:45 | WPDANESEPPF ---
Anes - Initial Pre Proc Eval Procedure: Operation Date: 04/27/21 13:00 Proposed Procedures p Hysteroscopy Dilation and Curettage - Steph Nation MD Date/Time: 04/27/21 12:45 Surgeon: Steph Nation MD Pre Op Diagnosis: post menopausal bleeding, thickened endo lining Patient Data Age: 61 Gender: F Height: 1.6 m Weight: 144 kg Last Vital Signs Temp 36.6 C 04/27/21 11:34 Pulse 66 04/27/21 11:34 Resp 20 04/27/21 11:34 BP 146/76 H 04/27/21 11:34 Pulse Ox 100 04/27/21 11:34 Allergies Allergy/AdvReac Type Severity Reaction Status Date / Time No Known Allergies Allergy Verified 04/27/21 11:22 Home Medications Medication Instructions Recorded Confirmed Type albuterol sulfate [ProAir HFA] 1 inh INHALATION QID PRN 04/30/19 04/17/21 History multivitamin 1 tablet PO DAILY 10/14/20 04/17/21 History cyclobenzaprine 5 mg tablet 5 mg PO QHS PRN #30 tablet 12/10/20 04/17/21 Rx ibuprofen 800 mg tablet 800 mg PO TID PRN #90 tablet 04/24/21 04/27/21 Rx levothyroxine 100 mcg tablet See Rx Instructions .ROUTE 04/24/21 04/27/21 Rx .COMPLEX #90 tablet lisinopril 20 mg tablet 20 mg PO DAILY #90 tablet 04/24/21 04/27/21 Rx metformin 1,000 mg tablet 1,000 mg PO BID #180 tablet 04/24/21 04/27/21 Rx omeprazole 20 mg capsule,delayed 20 mg PO BID #180 cap 04/24/21 04/27/21 Rx release amoxicillin-pot clavulanate 1 tablet PO Q12H 10 Days #20 tablet 04/25/21 04/27/21 Rx [Augmentin] Laboratory Tests 04/27/21 12:01 Sodium 140 mmol/L mmol/L (137-145) Potassium 4.2 mmol/L mmol/L (3.4-5.0) Chloride 101 mmol/L mmol/L (98-107) Carbon Dioxide 30 mmol/L mmol/L (22-30) Anion Gap 9 mmol/L mmol/L (8-16) BUN 20 mg/dL H mg/dL (7-17) Creatinine 0.70 mg/dL mg/dL (0.7-1.0) Estim Creat Clear Calc 102 ml/min ml/min Estimated GFR > 60 (59 - ) Glucose 113 mg/dL H mg/dL (65-110) Calcium 10.0 mg/dL mg/dL (8.4-10.2) Patient hx anesthesia problems: none Family hx anesthesia problems: none Results Review: All pre-operative results and documents have been reviewed as part of the pre-operative evaluation. [facility] Past Medical History Medical History Arthritis Asthma exercise induced Diabetes type 2, controlled GERD (gastroesophageal reflux disease) History of 2019 novel coronavirus disease (COVID-19) History of blood transfusion Hypertension Hypothyroidism Liver disease Missed Obesity YOANA (obstructive sleep apnea) CPAP Surgical History Surgical History History of bilateral tubal ligation History of x2 History of cholecystectomy History of nasal septoplasty History of thoracotomy Partial Thoracotomy Hx of tonsillectomy Right tibial fracture treated with intramedullary rodding Family History Family History Mother Hypertension COPD (chronic obstructive pulmonary disease) Kidney failure Heart problem Father Cerebrovascular accident Family history of diabetes mellitus in first degree relative Family history of malignant neoplasm of kidney Family history of heart disease in male family member before age 55 Cancer of pituitary gland CHF (congestive heart failure) Sibling Family history of diabetes mellitus in first degree relative sister and brother Hypertension brother Heart disease Cerebrovascular accident sister Heart problem sister Carotid body tumor sister Cirrhosis sister Hypercholesteremia brother Grandparent Diabetes mellitus Heart problem Other Family history of cardiovascular disease Social History Social History Social History: the patient lives with her and desires to have him as a durable power state attorney
--- NOTE | 2021-04-27 13:16 | P.OP_ITS ---
Procedure Note - Detailed Date of Procedure 04/27/21 Pre-op Diagnosis post menopausal bleeding, thickened endometrial lining Post-op Diagnosis same Procedure Performed D&C, hysteroscopy, endometrial polypectomy using MyoSure Surgeon Steph Nation MD Anesthesia MAC Indications Postmenopausal bleeding, endometrium thickened on ultrasound Findings Endometrial cavity with two small polypoid lesions, otherwise normal endometrial cavity Description of Procedure She was taken to the operating room where she was sedated and placed in dorsal lithotomy position. Speculum was placed in the vagina. Her cervix was not visible using a standard [facility] speculum, so a longer [facility] speculum was necessary for visualization of the cervix. Once her cervix was visible. The anterior lip of the cervix was grasped with a single-tooth tenaculum. The cervix was dilated to allow passage of the hysteroscope. Two small polypoid lesions were visible in the endometrial cavity. The MyoSure scope and device were made ready. Under direct visualization, the polyps were removed using the MyoSure device. The hysteroscope was removed. The tenaculum was removed from the cervix. The left tenaculum site was bleeding slightly. Pressure was held with ring forceps until excellent hemostasis was assured. All instruments were removed from the vagina. She tolerated procedure well. Sponge, lap, and instrument counts were correct x2. She was taken to the recovery room in stable condition. Estimated Blood Loss 10 Drains No Packing No Pathology yes Complications No immediate complications Condition stable Disposition PACU
--- NOTE | 2021-04-27 13:44 | SUR.PREOP ---
1300; DR KHALIL SPOKE TO PT, AWARE OF DELAY.
[2021-04-27 14:39] LABS: Glucose Point of Care 84 mg/dl (65-105)
[2021-04-27] MEDS: fentaNYL CITRATE INJ (*CRX) 100 MCG/2 ML VIAL 25 MCG IV PUSH ×6 (14:39→15:00)
[2021-04-27] MEDS: KETOROLAC 30 MG/ML VIAL (*BKC) IV PUSH (14:52)
[2021-04-27] MEDS: oxyCODONE HCL (*CRX) 5 MG TAB IR PO (15:15)
== END 2021-04-27 16:02 | disposition home or self-care (01) ==
PROVIDERS: Anesthesiology; PCP Internal Medicine; Visit Provider Obstetrics & Gynecology
PROC: 0U5B8ZZ Destruction of Endometrium, Via Natural or Artificial Opening Endoscopic (ICD-10-PCS; CPT 58563; principal; 2021-04-27 13:00)
DX: N84.0 Polyp of corpus uteri (principal); Z95.0 Presence of cardiac pacemaker; E03.9 Hypothyroidism, unspecified; Z79.84 Long term (current) use of oral hypoglycemic drugs; Z79.51 Long term (current) use of inhaled steroids; M19.90 Unspecified osteoarthritis, unspecified site; J45.909 Unspecified asthma, uncomplicated; E11.9 Type 2 diabetes mellitus without complications; K76.9 Liver disease, unspecified; G47.33 Obstructive sleep apnea (adult) (pediatric); Z87.891 Personal history of nicotine dependence; E66.01 Morbid (severe) obesity due to excess calories; Z68.43 Body mass index [BMI] 50.0-59.9, adult
CPT/HCPCS: 58558; 36415; 80048; 82948; 88305; A9270; J1100; J1885; J2250; J2405; J2704; J3010; J7030; J7120

== ENCOUNTER 2021-05-18 12:43 | Outpatient (CLI) | payer OTHER, SELFPAY ==
--- NOTE | ~2021-05-18 | US_ITS ---
EXAMINATION: US soft tissue LE LT DATE: 05/18/2021 13:16 INDICATION: Left knee pain TECHNIQUE: Multiple grayscale and Doppler ultrasound images of the left popliteal fossa were obtained . COMPARISON: None FINDINGS: The left popliteal artery and vein are normal in caliber with intraluminal basilar flow on color Dopp ler. No Robb's cyst or other abnormal masses or fluid collections identified at the left popliteal f neha. IMPRESSION: 1. Normal study. No Robb's cyst. Reviewed, dictated and finalized at location A. [employer]
== END 2021-05-18 12:44 | disposition home or self-care (01) ==
PROVIDERS: PCP Internal Medicine; Visit Provider Internal Medicine
DX: M25.569 Pain in unspecified knee (principal)
CPT/HCPCS: 76882

== ENCOUNTER 2021-05-29 09:48 | Outpatient (CLI) | payer OTHER, SELFPAY ==
--- NOTE | 2021-05-29 09:45 | ECG_ITS ---
Measurements Intervals [place] Rate: 63 P: 49 WI: 145 QRS: 41 QRSD: 126 T: 9 QT: 414 QTc: 425 Interpretive Statements SINUS RHYTHM RIGHT BUNDLE BRANCH BLOCK BASELINE ARTIFACT- I, II, III, AVR, AVL, AVF ABNORMAL ECG Electronically Signed On 05-29-2021 10:12:51 FINANCIAL INTERN by Jesus Degroot D.O.
== END 2021-05-29 09:49 | disposition home or self-care (01) ==
LOC: ANHSURGERY 09:54
PROVIDERS: PCP Internal Medicine; Visit Provider Obstetrics & Gynecology
DX: Z01.810 Encounter for preprocedural cardiovascular examination (principal); I10 Essential (primary) hypertension; E11.9 Type 2 diabetes mellitus without complications; I45.10 Unspecified right bundle-branch block
CPT/HCPCS: 93005

== ENCOUNTER 2021-06-16 10:01 | Inpatient (IN) | payer OTHER, SELFPAY ==
[2021-05-25 10:21] VITALS: BMI 56.0
--- NOTE | 2021-05-25 10:38 | PC.NURSE ---
Addendum entered by Keesha Hdez RN 06/05/21 13:54: PT INSTRUCTED TO ARRIVE AT 1200 ON 06/15/21 FOR SURGERY AT 1400. Original Note: Report to the Outpatient Waiting Room, entrance under the green pavilion located off [facility], at time 10:45 on date 06/01/21. OR Time: 12:45. - You and your visitor will be asked a series of questions to screen for COVID 19 for your protection. - A mask is required within the hospital. - Only one visitor is allowed at this time. Patient visitors will be guided where to wait when not with patient. Preoperative COVID Testing Requirements: No COVID Test needed if: (proof is required; if not received patient will have Rapid Test prior to entry) - Patient has received COVID Vaccine at least 14 days prior to procedure date or - Patient has positive COVID test result within last 90 days of surgery date. COVID Test needed if above criteria is not met If not COVID vaccinated a COVID test must be conducted within 72 hours of surgery and patient is asked to isolate self from time of testing until procedure. You will go to the [facility] for your COVID testing. The [facility] site is located at the corner of [address] [facility]. You will only be called if COVID results are positive and your surgeon may reschedule your elective surgery date. Patients may have clear liquids (water, carbonated beverages, clear teas, apple juice) until 3 hours prior to surgery with a maximum of 20 ounces. - No food from midnight until time of surgery - Infants may have breast milk until 4 hours before surgery, infant formula 6 hours prior to surgery. - Children will be allowed to drink immediately following surgery. If applicable, please bring a bottle or sippy cup to assist with drinking. Juice, water, soda, and popsicles are readily available. For infants on formula, please bring formula the day of surgery. Pacifiers are allowed. Take the following medications with a SIP of water the morning of surgery: LEVOTHYROXINE, ALBUTEROL AND CYCLOBENZAPRINE (IF NEEDED) Medications to discontinue per physician: VITAMINS/SUPPLEMENTS Date to take last dose: 05/28/[address] KHALIL Please no make-up, nail hungarian, hairspray, perfume, deodorant, or body powder the day of surgery. No jewelry (including any body piercings) or valuables the day of surgery, leave them at home. Please take a shower or bath the night before, or the morning of, surgery with an antibacterial soap. Wear comfortable, loose fitting clothing. Children are encouraged to wear pajamas. - Jewelry must be removed prior to entering the operating room. Rings and piercings that are not removed may be cut off. - The hospital will not accept responsibility for valuables. - Please leave all valuables, including medications, at home the day of surgery. If you are going home after surgery, a licensed class c driver must drive you home. - NO public transportation without another adult. - We recommend that an adult stay with you for 24 hours following discharge. - We also recommend that you do not drive, make important decision, drink alcoholic beverages, or take any drugs that were not prescribed by your health care provider for at least 24 hours after your discharge time. For Pediatric surgeries, we recommend two adults accompany the child home (only one inside the building at this time). Follow any additional instructions given to you from your surgeon. Telephone instructions given to KEESHA LOPEZ and asked if any additional questions and then verbalized understanding. Patient advised to call surgeon office or pre surgery nurse liaison [phone] if any additional questions.
--- NOTE | 2021-05-29 07:59 | PM.IMHP ---
H&P: HPI History of Present Illness Date/Time: 05/29/21 07:59 61 y/o with multiple episodes of postmenopausal bleeding. she has had D&C/hysteroscopy at least 4-5 times with removal of multiple endometrial polyps, most recently 04/27/2021. Polyps have recurred several times. She is interested in definitive therapy Chief Complaint: recurrent postmenopausal bleeding / endometrial polyps Review of Systems Review of Systems: All systems reviewed & are unremarkable except as noted in HPI and below PMFSH Past Medical History Medical History Arthritis Asthma exercise induced Diabetes type 2, controlled GERD (gastroesophageal reflux disease) History of 2019 novel coronavirus disease (COVID-19) History of blood transfusion Hypertension Hypothyroidism Liver disease Missed x1 Obesity YOANA (obstructive sleep apnea) CPAP Suspected COVID-19 virus infection Surgical History Surgical History History of bilateral tubal ligation History of x2 History of cholecystectomy History of nasal septoplasty History of thoracotomy Partial Thoracotomy Hx of tonsillectomy Right tibial fracture treated with intramedullary rodding Family History Family History Mother Hypertension COPD (chronic obstructive pulmonary disease) Kidney failure Heart problem Father Cerebrovascular accident Family history of diabetes mellitus in first degree relative Family history of malignant neoplasm of kidney Family history of heart disease in male family member before age 55 Cancer of pituitary gland CHF (congestive heart failure) Sibling Family history of diabetes mellitus in first degree relative sister and brother Hypertension brother Heart disease Cerebrovascular accident sister Heart problem sister Carotid body tumor sister Cirrhosis sister Hypercholesteremia brother Grandparent Diabetes mellitus Heart problem Other Family history of cardiovascular disease Social History Social History Social History: the patient lives with her and desires to have him as a durable power admitted attorneys for healthcare. The patient desires to be a full code. She has 2 children. 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 The patient occasionally drinks alcohol especially on her birthday. she denies any marijuana or illicit drugs. She is a former smoker. 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ROUTE 04/24/21 05/25/21 Rx .COMPLEX #90 tablet lisinopril 20 mg tablet 20 mg PO DAILY #90 tablet
--- NOTE | 2021-06-05 13:54 | PC.NURSE ---
Pt states no changes in medications or health history since initial interview. New pre-op instructions reviewed with pt. Pt denies further questions at this time.
--- NOTE | 2021-06-11 15:48 | PM.IMHP ---
H&P: HPI History of Present Illness Date/Time: 06/11/21 15:48 61 y/o with h/o recurrent postmenopausal bleeding and polyps. She has had D&C at least 4-5 times, most recently 04/27/2021 with benign polyp removed. She is requesting definitive therapy Chief Complaint: postmenopausal bleeding, endometrial polyps Review of Systems Review of Systems: All systems reviewed & are unremarkable except as noted in HPI and below PMFSH Past Medical History Medical History Arthritis Asthma exercise induced Diabetes type 2, controlled GERD (gastroesophageal reflux disease) History of 2019 novel coronavirus disease (COVID-19) History of blood transfusion Hypertension Hypothyroidism Liver disease Missed x1 Obesity YOANA (obstructive sleep apnea) CPAP Suspected COVID-19 virus infection Surgical History Surgical History History of bilateral tubal ligation History of x2 History of cholecystectomy History of nasal septoplasty History of thoracotomy Partial Thoracotomy Hx of tonsillectomy Right tibial fracture treated with intramedullary rodding Family History Family History Mother Hypertension COPD (chronic obstructive pulmonary disease) Kidney failure Heart problem Father Cerebrovascular accident Family history of diabetes mellitus in first degree relative Family history of malignant neoplasm of kidney Family history of heart disease in male family member before age 55 Cancer of pituitary gland CHF (congestive heart failure) Sibling Family history of diabetes mellitus in first degree relative sister and brother Hypertension brother Heart disease Cerebrovascular accident sister Heart problem sister Carotid body tumor sister Cirrhosis sister Hypercholesteremia brother Grandparent Diabetes mellitus Heart problem Other Family history of cardiovascular disease Social History Social History Social History: the patient lives with her and desires to have him as a durable power corporate associate attorney for healthcare. The patient desires to be a full code. She has 2 children. 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 The patient occasionally drinks alcohol especially on her birthday. she denies any marijuana or illicit drugs. She is a former smoker. Caffeine use: coffee 1 1/2 cups/day & iced tea Smoking packs per day: 1 Smoking cigarettes per day: 20.0 Years smoked: 20 Smoking pack-years: 20.00 Smoking status: Former smoker Tobacco type: cigarettes Second hand tobacco smoke exposure: No Smoking end date: 03/27/98 Alcohol intake: current Alcohol use details: wine, social Substance use: former Substance use type: marijuana Last use: in high school Living arrangements: with family Additional living arrangements comments: Spouse Additional occupation/education comments: [employer] Gender identity (if verbalized by the patient): Female Sexual Orientation (if Verbalized by the Patient): Straight or Heterosexual Spiritual care concerns: No Meds Home Medications and Allergies Home Medications Medication Instructions Recorded Confirmed Type albuterol sulfate [ProAir HFA] 1 inh INHALATION QID PRN 04/30/19 06/05/21 History multivitamin 1 tablet PO DAILY 10/14/20 06/05/21 History cyclobenzaprine 5 mg tablet 5 mg PO QHS PRN #30 tablet 12/10/20 06/05/21 Rx ibuprofen 800 mg tablet 800 mg PO TID PRN #90 tablet 04/24/21 06/05/21 Rx levothyroxine 100 mcg tablet See Rx Instructions .ROUTE 04/24/21 06/05/21 Rx .COMPLEX #90 tablet lisinopril 20 mg tablet 20 mg PO DAILY #90 tablet 04/24/21 06/05/21 Rx metformin 1,000 mg tablet 1,000 mg PO BID #180 tablet
[2021-06-15] VITALS (12 sets, daily range): BP systolic 104–149; BP diastolic 59–74; PULSE 61–75; RESP 12–20; TEMP 35.8–36.7; O2SAT 96–100
[2021-06-15] MEDS: ACETAMINOPHEN 500 MG TABLET 1000 MG PO (12:30)
[2021-06-15 12:35] LABS: Glucose Point of Care 112 mg/dl (65-105)
[2021-06-15] MEDS: KETOROLAC 15 MG/ML VIAL (*BKC) IV PUSH (12:46)
--- NOTE | 2021-06-15 13:23 | WPDANESEPPF ---
Anes - Initial Pre Proc Eval Procedure: Operation Date: 06/15/21 14:00 Proposed Procedures p Total Laparoscopic Assisted Hysterectomy with Bilateral Salpingo-Oophorectomy - Steph Nation MD Date/Time: 06/15/21 13:23 Surgeon: Steph Nation MD Pre Op Diagnosis: persistent post menopausal bleeding,endometrial po Patient Data Age: 61 Gender: F Height: 1.6 m Weight: 148.4 kg Last Vital Signs Temp 36.2 C L 06/15/21 13:20 Pulse 70 06/15/21 13:20 Resp 18 06/15/21 13:20 BP 149/73 H 06/15/21 13:20 Pulse Ox 98 06/15/21 13:20 Allergies Allergy/AdvReac Type Severity Reaction Status Date / Time No Known Allergies Allergy Verified 06/15/21 12:10 Home Medications Medication Instructions Recorded Confirmed Type albuterol sulfate [ProAir HFA] 1 inh INHALATION QID PRN 04/30/19 06/05/21 History multivitamin 1 tablet PO DAILY 10/14/20 06/15/21 History cyclobenzaprine 5 mg tablet 5 mg PO QHS PRN #30 tablet 12/10/20 06/15/21 Rx ibuprofen 800 mg tablet 800 mg PO TID PRN #90 tablet 04/24/21 06/15/21 Rx levothyroxine 100 mcg tablet See Rx Instructions .ROUTE 04/24/21 06/15/21 Rx .COMPLEX #90 tablet lisinopril 20 mg tablet 20 mg PO DAILY #90 tablet 04/24/21 06/15/21 Rx metformin 1,000 mg tablet 1,000 mg PO BID #180 tablet 04/24/21 06/15/21 Rx omeprazole 40 mg capsule,delayed 40 mg PO DAILY #90 cap 04/27/21 06/15/21 Rx release Laboratory Tests 06/15/21 12:32 POC Capillary Glucose 112 mg/dl H mg/dl (65-105) Patient hx anesthesia problems: none Family hx anesthesia problems: none Results Review: All pre-operative results and documents have been reviewed as part of the pre-operative evaluation. [facility] Past Medical History Medical History Arthritis Asthma exercise induced Diabetes type 2, controlled GERD (gastroesophageal reflux disease) History of 2019 novel coronavirus disease (COVID-19) History of blood transfusion Hypertension Hypothyroidism Liver disease Missed x1 Obesity YOANA (obstructive sleep apnea) CPAP Suspected COVID-19 virus infection Surgical History Surgical History History of bilateral tubal ligation History of x2 History of cholecystectomy History of nasal septoplasty History of thoracotomy Partial Thoracotomy Hx of tonsillectomy Right tibial fracture treated with intramedullary rodding Family History Family History Mother Hypertension COPD (chronic obstructive pulmonary disease) Kidney failure Heart problem Father Cerebrovascular accident Family history of diabetes mellitus in first degree relative Family history of malignant neoplasm of kidney Family history of heart disease in male family member before age 55 Cancer of pituitary gland CHF (congestive heart failure) Sibling Family history of diabetes mellitus in first degree relative sister and brother Hypertension brother Heart disease Cerebrovascular accident sister Heart problem sister Carotid body tumor sister Cirrhosis sister Hypercholesteremia brother Grandparent Diabetes mellitus Heart problem Other Family history of cardiovascular disease Social History Social History Social History: the patient lives with her and desires to have him as a durable power trademark attorney for healthcare. The patient desires to be a full code. She has 2 children. 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 The patient occasionally drinks alcohol especially on her birthday. she denies any marijuana or illicit drugs. She is a former smoker. Caffeine use: coffee 1 1/2 cups/day & iced tea Smoking packs per day: 1 Smoking cigarettes per day: 20.0 Years smoked: 20 Smoking pack-years: 20.00 Smoking
--- NOTE | 2021-06-15 13:23 | WPDHPUPDATE1 ---
History and Physical Update Update Date/Time: 06/15/21 13:23 History and Physical has been reviewed, including an updated exam of the patient. There are NO changes in the patient's condition. Risks, benefits, and alternatives have been discussed and questions answered. Patient agrees to proceed with procedure.
--- NOTE | 2021-06-15 14:01 | W.PM.PROC2 ---
Procedure Note - Detailed Date of Procedure 06/15/21 Pre-op Diagnosis persistent post menopausal bleeding,endometrial polyps Post-op Diagnosis other (persistent postmenopausal bleeding, severe abdominal / pelvic adhesions) Procedure Performed diagnostic laparoscopy, exploratory laparotomy, extensive lysis of adhesions Surgeon Steph Nation MD Anesthesia general Indications Recurrent postmenopausal bleeding and endometrial polyps Findings dense adhesions of omentum and bladder to anterior uterus / abdominal wall and of colon and omentum to posterior uterus and adnexae Description of Procedure She was taken to the operating room where general anesthesia was obtained. She was prepared and draped in the normal sterile fashion in the dorsal lithotomy position. Marcaine was injected infraumbilically. A 5 mm skin incision was made in the infraumbilical fold with a scalpel. A 5 mm non bladed trocar was then placed with the camera in the trocar under direct visualization into the peritoneal cavity. Insufflation was begun and she was placed in Trendelenburg. Inspection of the pelvis revealed dense adhesions of the omentum and possibly other structures to the fundus and entire anterior wall of the uterus and anterior abdominal wall. The uterus was only visible on the posterior wall. Neither ovary was visible. Right upper quadrant was also unable to be visualized due to dense adhesions of the omentum. Due to poor visualization, decision was made to proceed with open laparotomy. A midline vertical skin incision was made between the umbilicus to the suprapubic area with a scalpel. That incision was carried through the subcutaneous tissue using the Bovie. The fascia was incised in the midline and extended inferiorly and superiorly. The underlying rectus muscles were dissected off sharply. There was a small window of peritoneum visible near the upper portion of the incision. The peritoneum was tented up with 2 hemostats and entered sharply with the Metzenbaum scissors. Dense adhesions were noted to the entire incision. Those were taken down using sharp dissection to the extent possible. I reached a point where I felt uncomfortable to proceed any further due to not being able to see any obvious planes between the uterus and bowel in the uterus and bladder, so intraoperative consultation was made to Dr. Issa, general surgeon. Dr. Dixon did come and do extensive lysis of adhesions, removing the bowel and omentum from the posterior side of the uterus as well as the fundus. He was not willing to proceed further with lysis of adhesions on the anterior wall of the uterus involving the bladder I due to not being his area of expertise. So I continued with lysis of adhesions to the extent I felt comfortable but was never able to see a plane between the bladder and uterus. The bladder was distended with blue dyed saline, and still the bladder was impossible to delineate. Eventually I decided to leave the uterus in situ and start closing the abdomen. The patient's left fallopian tube was visible partially. The right fallopian tube was never visible. Neither ovary was visible or palpable with the extent of adhesions still left. The fascia was grasped with Kate clamps. 0 PDS was used to close the fascia in a running fashion. The subcutaneous tissue was irrigated. Any bleeding points were cauterized. The subcutaneous tissue was reapproximated in 3 layers using 2-0 Vicryl [id number] sutures. The skin was then closed with maurice. She tolerated the procedure well. Sponge, lap, needle, and instrument counts were correct x2. She was taken to the recovery room in stable condition. Estimated Blood Loss 125 Drains Yes (Benavidez) Packing No Pathology none sent Complications Other complications (Procedure abandomed without hysterectomy due to severity of adhesions) Condition stable Disposition PACU
[2021-06-15] MEDS: ceFAZolin 3 GM/D5W 100 ML 100 ML IVPB (14:13)
[2021-06-15] MEDS: LIDO 1%/EPINEPHRINE/PF 1:200,000 30 ML VIAL XX (15:44)
[2021-06-15] MEDS: LACTATED RINGERS 1,000 ML 30 ML IV CONT (16:48)
[2021-06-15 17:00] LABS: Glucose Point of Care 126 mg/dl (65-105)
[2021-06-15] MEDS: fentaNYL CITRATE INJ (*CRX) 100 MCG/2 ML VIAL 25 MCG IV PUSH ×7 (17:05→17:56)
--- NOTE | 2021-06-15 17:20 | W.PM.PROC2 ---
Procedure Note - Detailed Date of Procedure 06/15/21 Pre-op Diagnosis persistent post menopausal bleeding,endometrial po Post-op Diagnosis same Procedure Performed Exploratory laparotomy with lysis of adhesions Surgeon Ricardo Issa, DO Anesthesia general Indications This is a 61-year-old woman who I am asked to come in and evaluate intraoperatively for dense adhesions. She is undergoing hysterectomy with Dr. Nation. This was attempted laparoscopically but Dr. Nation had to convert to open and still encountered dense adhesions around the lower abdominal wall. I have been asked to help take down adhesions to identify the uterus and surrounding anatomy. Findings Exploratory laparotomy was performed. Dr. Nation already had a vertical midline incision going through the abdominal wall and into the peritoneal cavity. I was able to identify some omental adhesions in the lower abdomen. The omentum was adherent to the abdominal wall, uterus, and some epiploic appendages from the sigmoid colon. These omental adhesions were carefully taken down using blunt dissection and electrocautery. I was then also able to extend the fascial incision slightly further inferiorly, but then this was where the uterus was scarred up to the lower abdominal wall. I was able to identify that the omentum was clear of the abdominal wall along with any bowel. I could not guarantee that the bladder was not adherent close to the uterus, therefore I left this decision up to Dr. Nation. No further adhesiolysis was needed to ensure that there were no bowel injuries, therefore I a ended my portion of the procedure and allowed Dr. Nation to proceed. Description of Procedure Patient was already intubated and abdomen was already partially opened through a midline lower laparotomy incision. The linea alba had already been incised and the peritoneum was entered at the upper portion. This allowed me to examine the abdominal cavity from this upper portion and carefully identify some omental adhesions. These omental adhesions were carefully taken down using blunt dissection and electrocautery. I was then able to extend the peritoneal incision slightly further caudal using electrocautery. I then was able to identify some fimbria from what appeared to be the right adnexa that was close to the midline laparotomy incision. I was also at the point where the fundus of the uterus was easily visible. There were a few more omental adhesions along some of the sigmoid colon epiploic appendages. These were taken down using electrocautery as well and I was then able to pack the omentum up into the upper abdomen. After careful further inspection no other bowel appeared adherent to the uterus. The uterus still appeared densely adherent to the abdominal wall, but it was unclear where the bladder might be. I then ended my portion of the procedure and allowed Dr. Nation to finish her portion. Please refer to Dr. Nation's operative report for her details. Estimated Blood Loss 125 Urine Output -700.0 Complications No immediate complications Condition stable Disposition PACU
--- NOTE | 2021-06-15 19:05 | ADMGEN ---
This patient, Madelin Fitzpatrick, was admitted to OB 2nd Floor Room 278-00. Patient/family oriented to hospital policies and general routines including ID bracelet, bed and alarms, visiting hours, pain management, procedures, bathroom and other care routines, personal items, smoking policy, room service/diet, and visiting hours. Information on how to activate the Rapid Response Team has been discussed. Patient/Family are encouraged to report perceived risks to care and to ask questions if they do not understand what they are told or what they should do.
[2021-06-15] MEDS: HYDROcodone/acetaminophen (*CRX) 10-325 MG TABLET 1 TAB PO (19:10)
[2021-06-15] MEDS: IBUPROFEN 600 MG TABLET PO (19:10)
[2021-06-15] MEDS: LACTATED RINGERS 1,000 ML 125 ML IV CONT (19:10)
[2021-06-15] MEDS: SIMETHICONE 80 MG TAB.CHEW PO ×2 (19:24→21:46)
[2021-06-15] MEDS: WATER FOR IRRIGATION, STERILE 1,000 ML BOTTLE 1000 ML (21:01)
[2021-06-15] MEDS: ENOXAPARIN 40 MG/0.4 ML SYRINGE SUB-Q (21:11)
[2021-06-15] MEDS: CYCLOBENZAPRINE HCL 5 MG TABLET PO (21:48)
[2021-06-16] VITALS: BP 134/71; PULSE 75; RESP 18; TEMP 36.7
[2021-06-16] MEDS: HYDROcodone/acetaminophen (*CRX) 10-325 MG TABLET 1 TAB PO ×6 (00:16→19:26)
[2021-06-16] MEDS: SIMETHICONE 80 MG TAB.CHEW PO (00:18)
[2021-06-16] MEDS: LACTATED RINGERS 1,000 ML 125 ML IV CONT (02:53)
[2021-06-16] MEDS: IBUPROFEN 600 MG TABLET PO ×3 (02:54→19:25)
[2021-06-16 03:26] VITALS: BP 134/77; PULSE 77; RESP 18; TEMP 36.7
[2021-06-16 05:08] LABS: Basophils Absolute Auto 0.1 K/mm3 (0.0-0.1); Basophils Percent Auto 0.5 % (0.2-1.2); Eosinophils Percent Auto 0.2 % (0-4.4); Hematocrit 35.1 % (37.0-47.0); Hemoglobin 10.6 g/dL (12.0-15.0); Immature Granulocyte Absolute 0.05 K/mm3 (0.00-0.031); Immature Granulocyte Percent A 0.4 % (0-0.5); Lymphocytes Absolute Auto 1.38 K/mm3 (0.9-3.2); Lymphocytes Percent Auto 10.7 % (18.3-44.2); Mean Corpuscular HGB Conc 30.2 g/dl (32-36); Mean Corpuscular Hemoglobin 27.2 pg (26-34); Mean Corpuscular Volume 90.2 fl (80-100); Mean Platelet Volume 9.7 fl (7.4-10.4); Monocytes Absolute Auto 0.8 K/mm3 (0.1-0.6); Monocytes Percent Auto 5.9 % (2.6-8.5); Neutrophils Absolute Auto 10.6 K/mm3 (1.3-6.7); Neutrophils Percent Auto 82.3 % (45.5-73.1); Platelet Count Result 248 k/mm3 (150-375); Red Blood Count 3.89 M/mm3 (4.2-5.4); Red Cell Distribution Width 15.4 % (11.5-14.5); White Blood Count 12.9 K/mm3 (4.5-10.0)
[2021-06-16 05:44] LABS: Anion Gap 2 mmol/L (8-16); Blood Urea Nitrogen 11 mg/dL (7-17); Calcium 8.7 mg/dL (8.4-10.2); Carbon Dioxide 31 mmol/L (22-30); Chloride 98 mmol/L (98-107); Estimated CRCL calculation 104 ml/min; Estimated Glomerular Filt Rate > 60; Glucose 139 mg/dL (65-110); Potassium 3.9 mmol/L (3.4-5.0); Sodium 131 mmol/L (137-145)
--- NOTE | 2021-06-16 07:53 | PM.GYNPNOP ---
[facility] - A/P Postoperative Procedures: Procedures Operation Date: 06/15/21 14:00 Actual Procedure Side Surgeon p Diagnostic Laparoscopy, Exploratory Laparotomy, Lysis of Adhesions Not Applicable Steph Nation MD Postoperative day: 1 (s/p ex lap/MARILUZ, hysterectomy unable to be performed) Postoperative status: doing well Postoperative plan: routine post-op care, discharge (and follow up in office in 1 week) and other (I spoke with patient extensively about the severity of adhesions and the risk of proceeding with hysterectomy. 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 No flatus. No void yet) Exam Const: General: no acute distress Resp: Auscultation: clear to auscultation bilaterally Cardio: Rate: regular rate Rhythm: regular rhythm GI: Inspection: non-distended and incision (Intact without erythema, drainage, or induration) GI Palp: Yes abdominal tenderness (appropriate) and Yes Soft to palpation Extrem: General: no edema [facility] - PN: Obj Data Vital Signs Vital Signs: Vital Signs - 24 hr 06/15/21 13:20 06/15/21 16:48 06/15/21 17:00 Temperature 36.2 C L 36.7 C Pulse Rate 70 75 66 Respiratory Rate 18 12 12 Blood Pressure 149/73 H 138/74 118/65 Pulse Oximetry 98 99 100 06/15/21 17:15 06/15/21 17:30 06/15/21 17:45 Temperature Pulse Rate 73 62 65 Respiratory Rate 12 12 12 Blood Pressure 117/59 L 104/60 118/73 Pulse Oximetry 99 97 99 06/15/21 18:00 06/15/21 18:15 06/15/21 18:20 Temperature 35.8 C L Pulse Rate 64 61 Respiratory Rate 12 18 Blood Pressure 120/71 139/70 Pulse Oximetry 96 100 100 06/15/21 18:44 06/15/21 21:00 06/15/21 23:21 Temperature 36.6 C Pulse Rate 62 Respiratory Rate 20 Blood Pressure 132/66 Pulse Oximetry 100 98 06/16/21 00:00 06/16/21 03:26 Temperature 36.7 C 36.7 C Pulse Rate 75 77 Respiratory Rate 18 18 Blood Pressure 134/71 134/77 Pulse Oximetry Intake/Output Intake/Output: Intake & Output 06/13/21 06/14/21 06/15/21 06/16/21 23:59 23:59 23:59 23:59 Intake Total 400 2080 Output Total 500 450 Balance -100 1630 Meds/Results Medications: Active Medications Generic Name Dose Route Start Last Admin Trade Name Freq PRN Reason Stop Dose Admin Hydrocodone Bitart/Acetaminophen 1 tab 06/15/21 18:02 Hydrocodone/Acetaminophen (*Crx) 5-325 Mg Tablet PO Q3H PRN Pain Rated 5 or Less Hydrocodone Bitart/Acetaminophen 1 tab 06/15/21 18:02 06/16/21 02:54 Hydrocodone/Acetaminophen (*Crx) 10-325 Mg Tablet PO 1 tab Q3H PRN Administration Pain Rated 6 or Greater Albuterol 1 puff 06/15/21 18:02 Albuterol Sulfate (*Sp) Aerosol 1 Puff INHALATION QID PRN Shortness Of Breath Bisacodyl 10 mg 06/15/21 18:02 Bisacodyl 10 Mg Suppository RECTAL ONCE PRN Constipation Cyclobenzaprine HCl 5 mg 06/15/21 18:02 06/15/21 21:48 Cyclobenzaprine Hcl 5 Mg Tablet PO 5 mg HS PRN Administration muscle spasm Enoxaparin Sodium 40 mg 06/15/21 22:00 06/15/21 21:11 Enoxaparin 40 Mg/0.4 Ml Syringe SUB-Q 40 mg DAILY TORI Administration Lactated Ringer's 1,000 mls @ 125 mls/hr 06/15/21 18:02 06/16/21 02:53 Lr - Lactated Ringers Iv IV CONT 125 mls/hr .Q8H TORI Administration Ibuprofen 600 mg 06/15/21 18:02 06/16/21 02:54 Ibuprofen 600 Mg Tablet PO 600 mg Q6H PRN Administration Cramping Ketorolac Tromethamine 30 mg 06/15/21 18:02 Ketorolac 30 Mg/Ml Vial (*
[2021-06-16] MEDS: LEVOTHYROXINE SODIUM 100 MCG TABLET BY MOUTH (08:06)
[2021-06-16 08:40] VITALS: BP 95/48; PULSE 76; RESP 18; TEMP 37.3; O2SAT 93
--- NOTE | 2021-06-16 08:47 | P.PNAN_ITS ---
Anes - Prog Note Post-Op Date/Time: 06/16/21 08:47 Cardiovascular status: normal Respiratory status: normal Airway patency: baseline Mental status: baseline Post-Op hydration status: normal Vital Signs: Last Vital Signs Temp 36.7 C 06/16/21 03:26 Pulse 77 06/16/21 03:26 Resp 18 06/16/21 03:26 BP 134/77 06/16/21 03:26 Pulse Ox 98 06/15/21 23:21 Pain Score (VAS): 0 I/O: Intake & Output 06/15/21 06/16/21 06/16/21 23:59 07:59 15:59 Intake Total 300 2080 Output Total 500 450 Balance -200 1630 Laboratory Tests 06/16/21 04:24 06/16/21 04:24 06/15/21 06/15/21 06/16/21 12:32 16:58 04:24 WBC 12.9 H RBC 3.89 L Hgb 10.6 L Hct 35.1 L MCV 90.2 MCH 27.2 MCHC 30.2 L RDW 15.4 H Plt Count 248 MPV 9.7 Immature Gran % (Auto) 0.4 Neut % (Auto) 82.3 H Lymph % (Auto) 10.7 L [place] % (Auto) 5.9 Eos % (Auto) 0.2 Baso % (Auto) 0.5 Lymph # (Auto) 1.38 [place] # (Auto) 0.8 H Eos # (Auto) 0.0 Baso # (Auto) 0.1 Abs Immat Gran (auto) 0.05 H Absolute Neuts (auto) 10.6 H Absolute Nucleated RBC 0.0 Nucleated RBC % 0.0 Sodium Potassium Chloride Carbon Dioxide Anion Gap BUN Creatinine Estim Creat Clear Calc Estimated GFR Glucose POC Capillary Glucose 112 H 126 H Calcium 06/16/21 04:24 WBC RBC Hgb Hct MCV MCH MCHC RDW Plt Count MPV Immature Gran % (Auto) Neut % (Auto) Lymph % (Auto) [place] % (Auto) Eos % (Auto) Baso % (Auto) Lymph # (Auto) [place] # (Auto) Eos # (Auto) Baso # (Auto) Abs Immat Gran (auto) Absolute Neuts (auto) Absolute Nucleated RBC Nucleated RBC % Sodium 131 L Potassium 3.9 Chloride 98 Carbon Dioxide 31 H Anion Gap 2 L BUN 11 D Creatinine 0.70 Estim Creat Clear Calc 104 Estimated GFR > 60 Glucose 139 H POC Capillary Glucose Calcium 8.7 Post-procedural complaints: none Patient Feedback: Patient satisfied with anesthetic care.
[2021-06-16] MEDS: metFORMIN HCL 500 MG TABLET 1000 MG PO ×2 (09:49→17:08)
[2021-06-16] MEDS: lisinopriL 20 MG TABLET PO (09:49)
[2021-06-16] MEDS: MULTIVITAMINS THERAPEUTIC TAB (*BKC) 1 TABLET PO (09:50)
[2021-06-16] MEDS: PANTOPRAZOLE 40 MG TABLET PO (09:50)
[2021-06-16 11:33] VITALS: BP 74/51; PULSE 77; RESP 18; TEMP 36.9; O2SAT 94
[2021-06-16 18:30] VITALS: BP 133/62; PULSE 86; RESP 18; TEMP 36.6
[2021-06-16] MEDS: CYCLOBENZAPRINE HCL 5 MG TABLET PO (22:08)
[2021-06-16] MEDS: ENOXAPARIN 40 MG/0.4 ML SYRINGE SUB-Q (22:09)
[2021-06-17] MEDS: HYDROcodone/acetaminophen (*CRX) 10-325 MG TABLET 1 TAB PO (02:32)
[2021-06-17] MEDS: IBUPROFEN 600 MG TABLET PO ×2 (02:33→08:41)
[2021-06-17 07:30] VITALS: BP 92/49; PULSE 85; RESP 18; TEMP 37.1; O2SAT 92
[2021-06-17] MEDS: LEVOTHYROXINE SODIUM 100 MCG TABLET BY MOUTH (07:36)
[2021-06-17 07:43] VITALS: PULSE 86; RESP 18; O2SAT 94
--- NOTE | 2021-06-17 07:58 | PM.GYNPNOP ---
RN PATIENT CARE - A/P Postoperative Procedures: Procedures Operation Date: 06/15/21 14:00 Actual Procedure Side Surgeon p Diagnostic Laparoscopy, Exploratory Laparotomy, Lysis of Adhesions Not Applicable Steph Nation MD Postoperative day: 2 (s/p ex lap/MARILUZ) Postoperative status: doing well Postoperative plan: routine post-op care and discharge (and follow up in office in 1 week) Time Spent With Patient Time: Total time spent is greater than 50% in coordination of care (as documented) at patient's floor/unit and/or counseling patient: Time with patient: less than 15 minutes RN PATIENT CARE- PN:Subj Post-Op Subjective Date/time seen: 06/17/21 07:58 Interval history: No dizziness, faintness, chest pain, SOB Subjective: patient has no complaints, pain is well controlled and other (Tolerating regular diet. + flatus. Voiding without problems) Exam Const: General: no acute distress Resp: Auscultation: clear to auscultation bilaterally Cardio: Rate: regular rate Rhythm: regular rhythm GI: Inspection: non-distended and incision (Intact without erythema, drainage, or induration) GI Palp: Yes abdominal tenderness (appropriate) and Yes Soft to palpation Extrem: General: no edema RN PATIENT CARE - PN: Obj Data Vital Signs Vital Signs: Vital Signs - 24 hr 06/16/21 08:40 06/16/21 11:33 06/16/21 18:30 Temperature 37.3 C 36.9 C 36.6 C Pulse Rate 76 77 86 Respiratory Rate 18 18 18 Blood Pressure 95/48 L 74/51 L 133/62 Pulse Oximetry 93 94 06/17/21 07:43 Temperature Pulse Rate 86 Respiratory Rate 18 Blood Pressure Pulse Oximetry 94 Intake/Output Intake/Output: Intake & Output 06/14/21 06/15/21 06/16/21 06/17/21 23:59 23:59 23:59 23:59 Intake Total 400 2580 Output Total 500 1075 Balance -100 1505 Meds/Results Medications: Active Medications Generic Name Dose Route Start Last Admin Trade Name Freq PRN Reason Stop Dose Admin Hydrocodone Bitart/Acetaminophen 1 tab 06/15/21 18:02 Hydrocodone/Acetaminophen (*Crx) 5-325 Mg Tablet PO Q3H PRN Pain Rated 5 or Less Hydrocodone Bitart/Acetaminophen 1 tab 06/15/21 18:02 06/17/21 02:32 Hydrocodone/Acetaminophen (*Crx) 10-325 Mg Tablet PO 1 tab Q3H PRN Administration Pain Rated 6 or Greater Albuterol 1 puff 06/15/21 18:02 Albuterol Sulfate (*Sp) Aerosol 1 Puff INHALATION QID PRN Shortness Of Breath Bisacodyl 10 mg 06/15/21 18:02 Bisacodyl 10 Mg Suppository RECTAL ONCE PRN Constipation Cyclobenzaprine HCl 5 mg 06/15/21 18:02 06/16/21 22:08 Cyclobenzaprine Hcl 5 Mg Tablet PO 5 mg HS PRN Administration muscle spasm Enoxaparin Sodium 40 mg 06/16/21 21:00 06/16/21 22:09 Enoxaparin 40 Mg/0.4 Ml Syringe SUB-Q 40 mg BEDTIME TORI Administration Ibuprofen 600 mg 06/15/21 18:02 06/17/21 02:33 Ibuprofen 600 Mg Tablet PO 600 mg Q6H PRN Administration Cramping Influenza Virus Vaccine 0.5 ml 06/17/21 07:51 Influenza Quadrivalent Vaccine 0.5 Ml Syringe IM 06/17/21 07:52 .ONCE ONE Ketorolac Tromethamine 30 mg 06/15/21 18:02 Ketorolac 30 Mg/Ml Vial (*Bkc) IV PUSH 06/20/21 18:01 Q6H PRN Pain Rated 4-6 Levothyroxine Sodium 100 mcg 06/16/21 06:30 06/17/21 07:36 Levothyroxine Sodium 100 Mcg Tablet BY MOUTH 100 mcg DAILY@0630 TORI Administration Lisinopril 20 mg 06/16/21 09:00 06/16/21 09:49 Lisinopril 20 Mg Tablet PO 20 mg DAILY TROI Administration Metformin HCl 1,000 mg 06/15/21 18:02 06/16/21 17:08 Metformin Hcl 500 Mg Tablet PO 1,000 mg BID TORI Administration Metoclopramide HCl 10 mg 06/15/21 18:02 Metoclopramide Hcl Inj 10 Mg/2 Ml Vial IV PUSH Q6H PRN Nausea Morphine Sulfate 4 mg 06/15/21 18:02 Morphine Sulfate (*Crx) 4 Mg/Ml Inj IV PUSH Q4H PRN Pain Rated 7-10 Multivitamins Therapeutic 1 tablet 06/16/21 09:00 06/16/21 09:50 Multivitamins Therapeutic Tab (*Bkc) PO 1 tablet DAILY TORI
--- NOTE | 2021-06-17 07:59 | PM.DS ---
DS: Admitting Diagnosis Discharge Date 06/17/2021 Admitting Diagnosis postmenopausal bleeding DS: Discharge Diagnosis Discharge Diagnosis (1) Postmenopausal bleeding: Code(s): N95.0 - Postmenopausal bleeding Status: Acute (2) Pelvic adhesions: Code(s): N73.6 - Female pelvic peritoneal adhesions (postinfective) Status: Acute DS: Summary Hospital Course Hospital Course: Madelin 61 years old who has had recurrent postmenopausal bleeding and endometrial polyp several times. She most recently had a D&C hysteroscopy and endometrial polypectomy April 27, 2021. due to her many times this issue has recurred, she opted for definitive therapy in the form of hysterectomy. She was admitted on June 15 for a planned laparoscopic hysterectomy. For her surgical therapy, 1st she had a diagnostic laparoscopy. Dense adhesions were noted of the entire anterior uterus and fundus. So does the she then had an exploratory laparotomy with extensive lysis of adhesions. General surgery consult was done intraoperatively. Her bowel was freed from her uterus, but her her bladder was never clearly identified among the dense adhesions on the anterior wall of the uterus. Eventually the decision was made to leave her uterus in-situ and close. So she underwent diagnostic laparoscopy, exploratory laparotomy with extensive lysis adhesions but no hysterectomy. Her postoperative course has been uneventful. She is meeting all postoperative milestones and expresses a desire to be discharged home on postoperative day 2. 1222. She will be sent home with the follow-up and medications as noted. Status at Discharge Functional status at discharge: independent ambulation Overall status at discharge: patient is progressing back to baseline Time Spent with Patient Time attestation: Total time spent providing and/or coordinating discharge services: Time spent: Less than 30 minutes Discharge Plan Discharge Attending physician on discharge: Steph Nation Discharging Clinician: Steph Nation Patient Disposition: Home, Self-Care Activity: may shower and pelvic rest Diet: as tolerated Wound Care Instructions: incision open to air Patient Instructions: Antibiotic Form Stand Alone Forms: General Discharge Information Follow-up/Referrals: Steph Nation MD [Physician] - 1 Week (7-10 days postoperative for staple removal) Discharge Medications: New hydrocodone-acetaminophen 5-325 mg Tablet 1 tablet PO Q4H PRN (Reason: Pain Rated 5 Or Less) Qty: 40 RF: 0 Continued multivitamin Tablet 1 tablet PO DAILY RF: 0 cyclobenzaprine 5 mg tablet 5 mg PO QHS PRN (Reason: muscle spasm) Qty: 30 RF: 0 omeprazole 40 mg capsule,delayed release(DR/EC) 40 mg PO DAILY Qty: 90 RF: 1 albuterol sulfate [ProAir HFA] 90 mcg/actuation Hfa Aerosol Inhaler 1 inh INHALATION QID PRN (Reason: Shortness Of Breath) RF: 0 levothyroxine 100 mcg tablet See Rx Instructions .ROUTE .COMPLEX Qty: 90 RF: 1 lisinopril 20 mg tablet 20 mg PO DAILY Qty: 90 RF: 1 metformin 1,000 mg tablet 1,000 mg PO BID Qty: 180 RF: 1 ibuprofen 800 mg tablet 800 mg PO TID PRN (Reason: Pain) Qty: 90 RF: 1 Date of admission: 06/16/21 10:01 Primary Care Provider: Michael Molina Admitting Provider: Steph Nation Attending physician on admission: Steph Nation Condition: Stable Quality VTE Prophylaxis VTE prophylaxis: mechanical ordered and pharmacologic ordered
[2021-06-17] MEDS: MULTIVITAMINS THERAPEUTIC TAB (*BKC) 1 TABLET PO (08:43)
[2021-06-17] MEDS: metFORMIN HCL 500 MG TABLET 1000 MG PO (08:44)
[2021-06-17] MEDS: PANTOPRAZOLE 40 MG TABLET PO (08:44)
[2021-06-17] MEDS: lisinopriL 20 MG TABLET PO (08:44)
== END 2021-06-17 10:15 | disposition home or self-care (01) | DRG 744 ==
LOC: ANHSURGERY 10:31 → ANHOB2 10:31
PROVIDERS: Admitting Provider Obstetrics & Gynecology; PCP Internal Medicine; Visit Provider Obstetrics & Gynecology
PROC: 0UT9FZZ Resection of Uterus, Via Natural or Artificial Opening With Percutaneous Endoscopic Assistance (ICD-10-PCS; principal; 2021-06-15 14:00)
DX: N73.6 Female pelvic peritoneal adhesions (postinfective) (principal); Z68.43 Body mass index [BMI] 50.0-59.9, adult; N95.0 Postmenopausal bleeding; N84.0 Polyp of corpus uteri; Z23 Encounter for immunization; M19.90 Unspecified osteoarthritis, unspecified site; K21.9 Gastro-esophageal reflux disease without esophagitis; J45.990 Exercise induced bronchospasm; E66.01 Morbid (severe) obesity due to excess calories; E11.9 Type 2 diabetes mellitus without complications; I10 Essential (primary) hypertension; E03.9 Hypothyroidism, unspecified; G47.33 Obstructive sleep apnea (adult) (pediatric); K76.9 Liver disease, unspecified; Z53.8 Procedure and treatment not carried out for other reasons; Z86.16 Personal history of COVID-19; Z90.49 Acquired absence of other specified parts of digestive tract; Z87.891 Personal history of nicotine dependence
CPT/HCPCS: 36415; 80048; 82948; 85025; 90471; 90653; 93005; 99199; A9270; G0008; J0330; J0690; J1650; J1885; J2250; J2270; J2405; J2704; J3010; J7030; J7120; Q9968

== ENCOUNTER 2021-07-20 15:48 | Outpatient (CLI) | payer OTHER, SELFPAY ==
--- NOTE | ~2021-07-20 | CT_ITS ---
EXAMINATION: CT abdomen pelvis wo con DATE: 07/20/2021 16:16 INDICATION: Postprocedural infection. Open wound of anterior abdominal wall. TECHNIQUE: Computed tomography (CT) of the abdomen and pelvis was performed without intravenous contr ast. Automated exposure control and iterative reconstruction technique were employed. Exam dose: 163 7.82 mGy-cm total exam DLP. COMPARISON: August 10, 2016 CT abdomen pelvis FINDINGS: No infiltrate or consolidation at the lung bases. Normal heart size. No pericardial or pleu ral effusion. Status post cholecystectomy. No bile duct dilatation. Diffuse hepatic steatosis. No hepatic space-occ upying mass lesion is evident. Normal splenic size. No pancreatic mass lesion, calcification or ducta l dilatation. The adrenal glands are unremarkable. No renal mass lesion is evident on this limited noncontrast examination. No urinary tract calculus or hydroureteronephrosis. The urinary bladder, uterus and adnexal areas are unremarkable other than mari ateral tubal ligation. There is mild fluid in the posterior cul-de-sac. There is atherosclerotic calcification of the abdominal aorta and proximal renal arteries. No intrape ritoneal or retroperitoneal or pelvic mass lesion or adenopathy or ascites. Small sliding hiatal hernia. There is diverticulosis of the sigmoid colon; no CT evidence of diverticulitis. No bowel obstructio n or intraperitoneal free air. There is fat stranding and minimal subcutaneous air along a midline periumbilical/infraumbilical surg ical incision site. No abscess cavity is identified. There are some small bowel segments which abut the anterior abdominal wall in this area without intervening fat; adhesions are not excluded. IMPRESSION: Fat stranding along periumbilical/infraumbilical midline ventral surgical incision site; no abscess cavity is detected Reviewed, dictated and finalized at [facility]. Reviewed, dictated and finalized at [facility]. SORSHIP COORDINATOR IMPRESSION: Fat stranding along periumbilical/infraumbilical midline ventral s urgical incision site; no abscess cavity is detected
== END 2021-07-20 15:49 | disposition home or self-care (01) ==
PROVIDERS: PCP Internal Medicine; Visit Provider Obstetrics & Gynecology
DX: S31.109A Unspecified open wound of abdominal wall, unspecified quadrant without penetration into peritoneal cavity, initial encounter (principal); T81.49XA Infection following a procedure, other surgical site, initial encounter
CPT/HCPCS: 74176

== ENCOUNTER 2021-08-07 07:34 | Outpatient (RCR) | payer OTHER, SELFPAY ==
[2021-07-20 13:53] VITALS: BMI 56.6
== END 2021-09-18 12:28 | disposition home or self-care (01) ==
LOC: ANHWOC 07:34
PROVIDERS: PCP Internal Medicine; Visit Provider Obstetrics & Gynecology
DX: T81.49XD Infection following a procedure, other surgical site, subsequent encounter (principal)
CPT/HCPCS: 99212; A9270; G0463

== ENCOUNTER 2021-10-09 07:52 | Outpatient (CLI) | payer OTHER, SELFPAY ==
--- NOTE | 2021-10-22 19:13 | WPDSLEEPSTUD ---
Sleep Study Date of Study: 10/09/21 Ordering Provider: JOHN Martin Interpreting Physician: Qiana Pike DO Sleep Study Type: Split Polysomnogram Height: 1.6 m Weight: 145.15 kg Body Mass Index: 56.7 Neck Circumference (inches): 19.5 [place]: 5 Reason for Sleep Study Previously diagnosed YOANA and was on CPAP. Her machine was recalled. Sleep History The patient is a 61-year-old female with asthma, diabetes, GERD, hypertension, hypothyroidism, liver disease, obesity, obstructive sleep apnea and history of tobacco use disorder that had a split study ordered to get a new CPAP machine. The patient occasionally awakens from sleep short of breath. She rarely awakens at night with heartburn, belching or cough. She constantly snores loud enough that others complain. She frequently has trouble sleeping when she has a cold. She rarely wakes up gasping for air throughout the night. She constantly has breathing problems at night observed by herself or others. She occasionally sweats excessively at night. She occasionally notices heart palpitations or irregular heartbeats during the night. She rarely falls asleep during the day and never while driving. She denies sleep paralysis and cataplexy. She occasionally has trouble at school or work due to sleepiness. She rarely experiences vivid dreamlike scenes upon awakening or falling asleep. She rarely has nightmares. She occasionally remembers her dreams. She occasionally has thoughts racing through her mind. She rarely feels sad or depressed. She rarely has anxiety. She rarely has muscular tension. She occasionally notices parts of her body jerk. She occasionally kicks during the night. He frequently has crawling and aching feelings in her legs and frequently has leg pain during the night. She rarely grinds her teeth during sleep and never awakens with morning jaw pain. She is occasionally bothered by pain during the day and occasionally awakened by pain during the night. She frequently wakes up feeling stiff in the morning. She frequently wakes up with sore or achy muscles. She frequently wakes up with pain in the neck, spine and other joints. She goes to bed around 11:00 p.m. on both weekdays and weekends. It takes her 20 minutes to fall asleep. She wakes up 2-3 times throughout the night to roll over or let the dog out. She is able to fall back asleep within a few minutes. She wakes up around 7:00 a.m. on the weekdays and 8:00 a.m. on the weekends. She typically gets 6-8 hours of sleep per night. She will stay in bed occasionally after waking up in the morning to watch television. She currently lives with her . She does not consume any caffeinated beverages within 2 hours of bedtime. She does not engage in physical exercise before bedtime. She will read and watch television before falling asleep. She does not take naps in afternoon or the evening. She will drink 1 and half cups of coffee and ice tea per day. She quit smoking cigarettes. She will drink wine socially. She denies recreational drug use. [facility] Past Medical History Medical History Arthritis Asthma exercise induced Diabetes type 2, controlled GERD (gastroesophageal reflux disease) History of 2019 novel coronavirus disease (COVID-19) History of blood transfusion Hypertension Hypothyroidism Liver disease Missed x1 Obesity Open draining abdominal incision YOANA (obstructive sleep apnea) CPAP Suspected COVID-19 virus infection Surgical History Surgical History History of bilateral tubal ligation History of x2 History of cholecystectomy History of nasal septoplasty History of thoracotomy Partial Thoracotomy Hx of tonsillectomy Right tibial fracture treated with intramedullary rodding Family History Family History (Reviewed 10/22/21 @ 19:19 by Mary
[2021-10-22 19:39] VITALS: BMI 56.7
== END 2021-10-10 07:43 | disposition home or self-care (01) ==
LOC: ANHCSM 07:53
PROVIDERS: PCP Internal Medicine; Visit Provider Nurse Practitioner
DX: G47.33 Obstructive sleep apnea (adult) (pediatric) (principal)
CPT/HCPCS: 95811

== ENCOUNTER 2021-10-26 10:05 | Outpatient (CLI) | payer OTHER, SELFPAY ==
[2021-10-26 11:28] LABS: Alanine Aminotransferase 19 U/L (4-35); Alkaline Phosphatase 73 U/L (38-126); Anion Gap 6 mmol/L (8-16); Aspartate Amino Transferase 31 U/L (14-36); Bilirubin,Total 0.4 mg/dL (0.2-1.3); Blood Urea Nitrogen 18 mg/dL (7-17); Calcium 9.6 mg/dL (8.4-10.2); Carbon Dioxide 31 mmol/L (22-30); Chloride 102 mmol/L (98-107); Cholesterol 177 mg/dL (0-200); Estimated Glomerular Filt Rate > 60; Glucose 118 mg/dL (65-110); HDL Direct 69 mg/dL; Potassium 4.1 mmol/L (3.4-5.0); Sodium 139 mmol/L (137-145); Triglycerides 73 mg/dL (<150)
[2021-10-26 11:32] LABS: LDL Cholesterol Direct 72 mg/dL
[2021-10-26 11:36] LABS: Albumin Level 4.3 g/dL (3.5-5.1)
[2021-10-26 12:18] LABS: Ferritin 9.59 ng/mL (11.1-264)
== END 2021-10-26 10:06 | disposition home or self-care (01) ==
PROVIDERS: PCP Internal Medicine; Visit Provider Internal Medicine
DX: G25.81 Restless legs syndrome (principal); I10 Essential (primary) hypertension; E78.5 Hyperlipidemia, unspecified; E11.9 Type 2 diabetes mellitus without complications; E03.9 Hypothyroidism, unspecified; Z79.899 Other long term (current) drug therapy
CPT/HCPCS: 36415; 80053; 80061; 82728; 83036; 84443

== ENCOUNTER 2021-11-20 07:39 | Outpatient (CLI) | payer OTHER, SELFPAY ==
--- NOTE | ~2021-11-20 | US_ITS ---
EXAMINATION: US abdomen complete DATE: 11/20/2021 08:17 INDICATION: Left upper quadrant abdominal pain. TECHNIQUE: Multiple grayscale and Doppler ultrasound images of the abdomen were obtained. COMPARISON: CT abdomen and pelvis 07/20/2021 FINDINGS: The spleen is normal. The left kidney is normal. The visualized portions of the head and tu dy of the pancreas are normal. IMPRESSION: 1. Normal left upper quadrant ultrasound. Reviewed, dictated and finalized at [facility].
== END 2021-11-20 07:40 | disposition home or self-care (01) ==
PROVIDERS: PCP Internal Medicine; Visit Provider Nurse Practitioner
DX: K46.9 Unspecified abdominal hernia without obstruction or gangrene (principal)
CPT/HCPCS: 76700

== ENCOUNTER 2021-12-18 07:50 | Outpatient (CLI) | payer OTHER, SELFPAY ==
--- NOTE | ~2021-12-18 | MM_ITS ---
EXAMINATION: MM screening eddi BI w rizwan HISTORY: Screening mammogram TECHNIQUE: Craniocaudal and mediolateral oblique 3-D tomosynthesis images were obtained and synthetic 2-D images were generated. CAD analysis was submitted and interpreted. COMPARISON: 11/12/2020, 05/31/2019, 07/08/2017 bilateral screening mammogram examinations BREAST PARENCHYMAL COMPOSITION: The breasts are almost entirely fatty. FINDINGS: Stable benign posterior right mid and upper outer intramammary lymph nodes. There is no rosa m dence of suspicious mass, calcification, or architectural distortion to suggest malignancy in either breast. There has been no suspicious interval change. IMPRESSION: 1. No mammographic evidence of malignancy. 2. Recommend routine screening mammography in one year. BI-RADS Category 2: Benign finding(s). Reviewed, dictated and finalized at location [facility].
== END 2021-12-18 07:51 | disposition home or self-care (01) ==
LOC: ANHIMG 07:53
PROVIDERS: PCP Internal Medicine; Visit Provider Nurse Practitioner
DX: Z12.31 Encounter for screening mammogram for malignant neoplasm of breast (principal)
CPT/HCPCS: 77063; 77067

== ENCOUNTER 2022-01-18 00:27 | Day surgery (SDC) | payer OTHER, SELFPAY ==
[2022-01-01 12:14] VITALS: BMI 58.1
[2022-01-18 08:10] VITALS: BP 139/81; PULSE 88; RESP 18; TEMP 36.2; O2SAT 94
[2022-01-18] MEDS: LACTATED RINGERS 1,000 ML 150 ML IV CONT (08:28)
--- NOTE | 2022-01-18 08:28 | WPDANESEPPF ---
Anes - Initial Pre Proc Eval Procedure: Operation Date: 01/18/22 09:00 Proposed Procedures p Screening Colonoscopy - Jamal Pearson MD Date/Time: 01/18/22 08:28 Surgeon: Jamal Pearson MD Pre Op Diagnosis: hx of colon polyps Patient Data Age: 61 Gender: F Height: 1.6 m Weight: 149 kg Last Vital Signs Temp 36.2 C L 01/18/22 08:10 Pulse 88 01/18/22 08:10 Resp 18 01/18/22 08:10 BP 139/81 01/18/22 08:10 Pulse Ox 94 01/18/22 08:10 O2 Del Method Room Air 01/18/22 08:10 Allergies Allergy/AdvReac Type Severity Reaction Status Date / Time No Known Allergies Allergy Verified 01/01/22 12:14 Home Medications Medication Instructions Recorded Confirmed Type albuterol sulfate 90 mcg/actuation 1 inh inhalation QID PRN Shortness 04/30/19 01/01/22 History aerosol inhaler (ProAir HFA) Of Breath levothyroxine 100 mcg tablet See Rx Instructions .Route 11/06/21 01/18/22 Rx .COMPLEX #90 tabs omeprazole 40 mg capsule,delayed 40 mg PO DAILY #90 caps 11/06/21 01/01/22 Rx release ferrous sulfate 325 mg (65 mg 325 mg PO DAILY #90 tabs 11/09/21 01/01/22 Rx iron) tablet metformin 1,000 mg tablet 1,000 mg PO BID #180 tabs 11/10/21 01/01/22 Rx sodium sul 1.479 gram-potas ch See Rx Instructions PO PER PKG DIR 11/13/21 01/01/22 Rx 0.188 gram-magnes sul 0.225 gram #24 tabs tablet (Sutab) lisinopril 20 mg tablet 20 mg PO DAILY #90 tabs 11/16/21 01/01/22 Rx ibuprofen 800 mg tablet 800 mg PO TID PRN Pain #90 tabs 12/07/21 01/01/22 Rx gabapentin 300 mg capsule 300 mg PO DAILY 01/01/22 01/01/22 History Patient hx anesthesia problems: none Family hx anesthesia problems: none Results Review: All pre-operative results and documents have been reviewed as part of the pre-operative evaluation. [facility] Past Medical History Medical History Arthritis Asthma exercise induced Diabetes type 2, controlled GERD (gastroesophageal reflux disease) History of 2019 novel coronavirus disease (COVID-19) History of blood transfusion Hypertension Hypothyroidism Liver disease Missed x1 Obesity Open draining abdominal incision YOANA (obstructive sleep apnea) CPAP Suspected COVID-19 virus infection Surgical History Surgical History History of bilateral tubal ligation History of x2 History of cholecystectomy History of nasal septoplasty History of thoracotomy Partial Thoracotomy Hx of tonsillectomy Right tibial fracture treated with intramedullary rodding Family History Family History Mother Hypertension COPD (chronic obstructive pulmonary disease) Kidney failure Heart problem Father Cerebrovascular accident Family history of diabetes mellitus in first degree relative Family history of malignant neoplasm of kidney Family history of heart disease in male family member before age 55 Cancer of pituitary gland CHF (congestive heart failure) Sibling Family history of diabetes mellitus in first degree relative sister and brother Hypertension brother Heart disease Cerebrovascular accident sister Heart problem sister Carotid body tumor sister Cirrhosis sister Hypercholesteremia brother Grandparent Diabetes mellitus Heart problem Other Family history of cardiovascular disease Social History Social History Social History: the patient lives with her and desires to have him as a durable power trial attorney for healthcare. The patient desires to be a full code. She has 2 children. 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 The patient occasionally drinks alcohol especially on her birthday. she denies any marijuana or illicit drugs. She is a former smoker. Caffeine use: coffee 1 1/2 cups/da
[2022-01-18 08:31] LABS: Glucose Point of Care 140 mg/dl (65-105)
--- NOTE | 2022-01-18 08:42 | PM.IMHP ---
H&P: HPI History of Present Illness Date/Time: 01/18/22 08:42 Chief Complaint: History of colon polyps. Narrative: This is a 61-year-old white female patient seen for colonoscopy. Patient has a history of colon polyps removed in 2016. She states her current weight appetite bowel movements are normal. She occasionally feels gas trapped in the left upper quadrant of the abdomen. Family history is noncontributory. Patient presents today for screening colonoscopy. Review of Systems Review of Systems: Review of systems noncontributory. [facility] Past Medical History Medical History Arthritis Asthma exercise induced Diabetes type 2, controlled GERD (gastroesophageal reflux disease) History of 2019 novel coronavirus disease (COVID-19) History of blood transfusion Hypertension Hypothyroidism Liver disease Missed x1 Obesity Open draining abdominal incision YOANA (obstructive sleep apnea) CPAP Suspected COVID-19 virus infection Surgical History Surgical History History of bilateral tubal ligation History of x2 History of cholecystectomy History of nasal septoplasty History of thoracotomy Partial Thoracotomy Hx of tonsillectomy Right tibial fracture treated with intramedullary rodding Family History Family History Mother Hypertension COPD (chronic obstructive pulmonary disease) Kidney failure Heart problem Father Cerebrovascular accident Family history of diabetes mellitus in first degree relative Family history of malignant neoplasm of kidney Family history of heart disease in male family member before age 55 Cancer of pituitary gland CHF (congestive heart failure) Sibling Family history of diabetes mellitus in first degree relative sister and brother Hypertension brother Heart disease Cerebrovascular accident sister Heart problem sister Carotid body tumor sister Cirrhosis sister Hypercholesteremia brother Grandparent Diabetes mellitus Heart problem Other Family history of cardiovascular disease Social History Social History Social History: the patient lives with her and desires to have him as a durable power assistant county attorney for healthcare. The patient desires to be a full code. She has 2 children. 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 The patient occasionally drinks alcohol especially on her birthday. she denies any marijuana or illicit drugs. She is a former smoker. 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 Gender identity (if verbalized by the patient): Female Sexual Orientation (if Verbalized by the Patient): Straight or Heterosexual Spiritual care concerns: No Meds Home Medications and Allergies Home Medications Medication Instructions Recorded Confirmed Type albuterol sulfate 90 mcg/actuation 1 inh inhalation QID PRN Shortness 04/30/19 01/01/22 History aerosol inhaler (ProAir HFA) Of Breath levothyroxine 100 mcg tablet See Rx Instructions .Route 11/06/21 01/18/22 Rx .COMPLEX #90 tabs omeprazole 40 mg capsule,delayed 40 mg PO DAILY #90 caps 11/06/21 01/01/22 Rx release ferrous sulfate 325 mg (65 mg 325 mg PO DAILY #90 tabs 11/09/21 01/01/22 Rx iron) tablet metformin 1,000 mg tablet 1,000 mg PO BID #180 tabs 11/10/21 01/01/22 Rx sodium sul 1.479 gram-potas ch See Rx
[2022-01-18 09:08] VITALS: BP 134/72; PULSE 70; RESP 16; O2SAT 96
[2022-01-18 09:18] VITALS: BP 116/76; PULSE 68; RESP 22; O2SAT 98
[2022-01-18 09:28] VITALS: BP 128/72; PULSE 66; RESP 21; O2SAT 98
== END 2022-01-18 09:44 | disposition home or self-care (01) ==
PROVIDERS: PCP Internal Medicine; Visit Provider Internal Medicine Gastroenterology
PROC: 0DJD8ZZ Inspection of Lower Intestinal Tract, Via Natural or Artificial Opening Endoscopic (ICD-10-PCS; CPT 45378; principal; 2022-01-18 09:00)
DX: Z12.11 Encounter for screening for malignant neoplasm of colon (principal); Z86.010 Personal history of colon polyps; K64.8 Other hemorrhoids; M19.90 Unspecified osteoarthritis, unspecified site; J45.909 Unspecified asthma, uncomplicated; E11.9 Type 2 diabetes mellitus without complications; K21.9 Gastro-esophageal reflux disease without esophagitis; Z86.16 Personal history of COVID-19; E03.9 Hypothyroidism, unspecified; I10 Essential (primary) hypertension; G47.33 Obstructive sleep apnea (adult) (pediatric); Z87.891 Personal history of nicotine dependence; Z79.84 Long term (current) use of oral hypoglycemic drugs; Z79.51 Long term (current) use of inhaled steroids; K63.9 Disease of intestine, unspecified; E66.01 Morbid (severe) obesity due to excess calories; Z68.43 Body mass index [BMI] 50.0-59.9, adult
CPT/HCPCS: G0105; 82948; J2704; J7120

== ENCOUNTER 2022-02-15 08:42 | Outpatient (CLI) | payer OTHER, SELFPAY ==
--- NOTE | ~2022-02-15 | XR_ITS ---
EXAMINATION: XR lg joint inject/asp w image DATE: 02/15/2022 09:20 INDICATION: Left hip pain. TECHNIQUE: A time-out was performed to verify the patient's name, date of , and procedure to b e performed. The procedure including the risks, benefits, and alternatives was discussed with the pat ient. Risks discussed included bleeding and infection. The patient understood the risks and agreed to proceed. The skin overlying the left trochanteric bursa was prepped and draped in usual sterile fas hion. Anesthetic was administered with 1% lidocaine subcutaneously. A 22 G needle was advanced unde r fluoroscopic guidance into the bursa. Subsequently, injectate consisting of 5 mL 1% lidocaine and 2 mL 10 mg/mL Kenalog was instilled. The needle was removed and the entry site was cleaned and dress ed. There were no immediate complications. Fluoroscopy exposure time was 0.0 minutes. The total numb er of images was 1. FINDINGS: Real-time fluoroscopy demonstrates the needle in the left trochanteric bursa. Patient's jose n prior to procedure:210. Patient's pain following the procedure: 3/10. IMPRESSION: 1. Fluoroscopy guided left trochanteric bursa injection of local anesthetic and steroid . Reviewed, dictated and finalized at location [facility].
== END 2022-02-15 08:43 | disposition home or self-care (01) ==
PROVIDERS: PCP Internal Medicine; Visit Provider Nurse Practitioner
DX: M25.552 Pain in left hip (principal)
CPT/HCPCS: 20610; 77002; J3301

== ENCOUNTER 2022-04-30 09:05 | Outpatient (CLI) | payer OTHER, SELFPAY ==
[2022-04-30 09:30] LABS: Basophils Absolute Auto 0.1 K/mm3 (0.0-0.1); Basophils Percent Auto 0.9 % (0.2-1.2); Eosinophils Absolute Auto 0.4 K/mm3 (0-0.3); Eosinophils Percent Auto 5.2 % (0-4.4); Hematocrit 40.5 % (37.0-47.0); Immature Granulocyte Absolute 0.03 K/mm3 (0.00-0.031); Immature Granulocyte Percent A 0.4 % (0-0.5); Lymphocytes Percent Auto 16.9 % (18.3-44.2); Mean Corpuscular HGB Conc 29.6 g/dl (32-36); Mean Corpuscular Hemoglobin 28.5 pg (26-34); Mean Corpuscular Volume 96.2 fl (80-100); Mean Platelet Volume 9.5 fl (7.4-10.4); Monocytes Absolute Auto 0.6 K/mm3 (0.1-0.6); Monocytes Percent Auto 7.4 % (2.6-8.5); Neutrophils Absolute Auto 5.3 K/mm3 (1.3-6.7); Neutrophils Percent Auto 69.2 % (45.5-73.1); Platelet Count Result 231 k/mm3 (150-375); Red Blood Count 4.21 M/mm3 (4.2-5.4); Red Cell Distribution Width 15.7 % (11.5-14.5); White Blood Count 7.7 K/mm3 (4.5-10.0)
[2022-04-30 09:37] LABS: Alanine Aminotransferase 26 U/L (6-35); Albumin Level 4.3 g/dL (3.5-5.1); Alkaline Phosphatase 77 U/L (38-126); Anion Gap 10 mmol/L (8-16); Aspartate Amino Transferase 27 U/L (14-36); Bilirubin,Total 0.5 mg/dL (0.2-1.3); Blood Urea Nitrogen 17 mg/dL (7-17); Calcium 9.2 mg/dL (8.4-10.2); Carbon Dioxide 27 mmol/L (22-30); Chloride 105 mmol/L (98-107); Cholesterol 176 mg/dL (0-200); Estimated Glomerular Filt Rate > 60; Glucose 135 mg/dL (65-110); HDL Direct 66 mg/dL; Potassium 3.9 mmol/L (3.4-5.0); Sodium 142 mmol/L (137-145); Triglycerides 66 mg/dL (<150)
[2022-04-30 09:41] LABS: CRP 1.5 mg/dL (<1.0); Rheumatoid Factor < 8.6 IU/ML (<12); Uric Acid 4.9 mg/dL (2.5-7.5)
[2022-04-30 09:48] LABS: LDL Cholesterol Direct 78 mg/dL
[2022-04-30 10:10] LABS: Iron 71 ug/dL (37-170)
[2022-04-30 10:19] LABS: Percent Iron Saturation 19 % (20-50)
[2022-04-30 10:20] LABS: Vitamin D 25 Hydroxy 19.4 ng/mL
[2022-04-30 11:33] LABS: Hemoglobin A1C 6.4 % (<5.7)
[2022-04-30 11:56] LABS: Erythrocyte Sedimentation Rate 17 mm/hr (0-20)
== END 2022-04-30 09:06 | disposition home or self-care (01) ==
PROVIDERS: PCP Nurse Practitioner; Referring Provider Nurse Practitioner; Visit Provider Orthopaedic Surgery
DX: M16.0 Bilateral primary osteoarthritis of hip (principal); E11.9 Type 2 diabetes mellitus without complications; R79.0 Abnormal level of blood mineral; Z13.220 Encounter for screening for lipoid disorders; E03.9 Hypothyroidism, unspecified; Z13.21 Encounter for screening for nutritional disorder
CPT/HCPCS: 36415; 80053; 80061; 82306; 82728; 83036; 83540; 83550; 84443; 84550; 85025; 85652; 86038; 86039; 86140; 86430

== ENCOUNTER 2022-05-06 11:33 | Emergency (ER) | payer OTHER, SELFPAY ==
--- NOTE | 2022-05-06 11:38 | ED.URI ---
HPI - URI/Sore Throat General Chief Complaint: Upper Respiratory Infection Stated Complaint: Lt Ear Irritation,Lt Facial Swelling Time Seen by Provider: 05/06/22 11:40 Source: patient, RN notes reviewed and old records reviewed Mode of arrival: ambulatory Limitations: no limitations History of Present Illness HPI Narrative: 62 yo female presents to the [facility] with complaints of left ear pain, sinus congestion, left lymph node swelling. Ear pain and sinus congestion started 2 weeks ago. Has been taking Sudafed. Patient states the lymph node became swollen about a week ago. Tried to call primary care provider this morning who was told to come the [facility]. has an appointment with primary care provider on the 19 of May Related Data Home Medications Medication Instructions Recorded Confirmed gabapentin 300 mg capsule 300 mg PO DAILY 01/01/22 05/06/22 tolterodine 2 mg tablet 2 mg PO Q12H 03/10/22 05/06/22 Allergies Allergy/AdvReac Type Severity Reaction Status Date / Time No Known Allergies Allergy Verified 05/06/22 11:50 Review of Systems Review of Systems: All systems reviewed & are unremarkable except as noted in HPI and below Constitutional: Constitutional: Reports no additional constitutional complaints, Denies chills and Denies fever(s) Eyes: Eyes: Reports no additional eye complaints ENT: Reports as per HPI, Reports otalgia (left) and Reports nasal congestion Cardiovascular: Cardiovascular: Reports no additional cardiovascular complaints Respiratory: Respiratory: Reports no additional respiratory complaints Gastrointestinal: Gastrointestinal: Reports no additional gastrointestinal complaints Musculoskeletal: Musculoskeletal: Reports no additional musculoskeletal complaints Integumentary/Breasts: Skin/Breast: Reports system reviewed and no additional complaints, except as docu Neurologic: Reports system reviewed and no additional complaints, except as documented Psychiatric: Psychiatric: Reports no additional psychiatric complaints Hematologic/Lymphatic: Hematologic/Lymphatic: Reports as per HPI Allergic/Immunologic: Allergic/Immunologic: Reports no additional allergic/immunologic complaints PMFSH Past Medical History Medical History Arthritis Asthma exercise induced Diabetes type 2, controlled GERD (gastroesophageal reflux disease) History of 2018 novel coronavirus disease (COVID-19) History of blood transfusion Hypertension Hypothyroidism Liver disease Lumbago Missed x1 Obesity Open draining abdominal incision YOANA (obstructive sleep apnea) CPAP Suspected COVID-19 virus infection Surgical History Surgical History History of bilateral tubal ligation History of x2 History of cholecystectomy History of nasal septoplasty History of thoracotomy Partial Thoracotomy Hx of tonsillectomy Right tibial fracture treated with intramedullary rodding Family History Family History Mother Hypertension COPD (chronic obstructive pulmonary disease) Kidney failure Heart problem Father Cerebrovascular accident Family history of diabetes mellitus in first degree relative Family history of malignant neoplasm of kidney Family history of heart disease in male family member before age 55 Cancer of pituitary gland CHF (congestive heart failure) Sibling Family history of diabetes mellitus in first degree relative sister and brother Hypertension brother Heart disease Cerebrovascular accident sister Heart problem sister Carotid body tumor sister Cirrhosis sister Hypercholesteremia brother Grandparent Diabetes mellitus Heart problem Other Family history of cardiovascular disease Social History Social History (Rev
[2022-05-06 11:40] VITALS: BP 160/87; PULSE 71; RESP 18; TEMP 36.1; O2SAT 96
== END 2022-05-06 12:05 | disposition home or self-care (01) ==
PROVIDERS: Emergency Provider Nurse Practitioner; PCP Internal Medicine
DX: J32.9 Chronic sinusitis, unspecified (principal); H65.02 Acute serous otitis media, left ear; Z87.891 Personal history of nicotine dependence; M19.90 Unspecified osteoarthritis, unspecified site; J45.990 Exercise induced bronchospasm; E11.9 Type 2 diabetes mellitus without complications; K21.9 Gastro-esophageal reflux disease without esophagitis; Z86.16 Personal history of COVID-19; I10 Essential (primary) hypertension; E03.9 Hypothyroidism, unspecified; G47.33 Obstructive sleep apnea (adult) (pediatric); E66.9 Obesity, unspecified; Z68.43 Body mass index [BMI] 50.0-59.9, adult
CPT/HCPCS: 99213; G0463

== ENCOUNTER 2022-08-26 14:09 | Outpatient (CLI) | payer OTHER, SELFPAY ==
--- NOTE | ~2022-08-26 | XR_ITS ---
XR sacroiliac joints min 3V 08/26/2022 14:54 Indication: Multiple joint pain Procedure: 3 view sacroiliac joints Comparison: 01/19/2022 Findings: Mild symmetric osteoarthritis of the sacroiliac joints. No fracture, subluxation or disloca tion. No evidence for ankylosis. Sacral foramen are symmetric. No erosive changes. 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 Reviewed, dictated and finalized at location L. 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
--- NOTE | ~2022-08-26 | XR_ITS ---
XR wrist LT 2V 08/26/2022 14:54 Indication: Polyarticular joint pain Procedure: 2 views left wrist Comparison: 08/26/2022 Findings: There is polyarticular osteoarthritis of the triscaphe and first carpal metacarpal joints. Osteopenia . No fracture, subluxation or dislocation. No significant soft tissue abnormality. No foreign bodies. Impression: 1: Polyarticular osteoarthritis of the left wrist. Reviewed, dictated and finalized at location L. FIC ANALYST Impression: 1: Polyarticular osteoarthritis of the left wrist.
--- NOTE | ~2022-08-26 | XR_ITS ---
XR wrist RT 2V 08/26/2022 14:54 Indication: Right wrist pain Procedure: 2 views right wrist Comparison: 08/26/2022 Findings: There is osteoarthritis of the first carpal metacarpal joint and to a lesser degree the fir st metacarpal phalangeal joint. No acute fracture or traumatic malalignment. No significant soft tiss ue abnormality. No foreign body. Impression: 1: Polyarticular osteoarthritis of the first digit. Reviewed, dictated and finalized at location L. R/FINISHER Impression: 1: Polyarticular osteoarthritis of the first digit.
--- NOTE | ~2022-08-26 | XR_ITS ---
EXAMINATION: XR foot LT 2V INDICATION: Left foot pain TECHNIQUE: Two views of the left foot are obtained. COMPARISON: None available FINDINGS: There is mild osteoarthritis at the talonavicular joint. A plantar calcaneal enthesophyte i s noted. There is mild osteoarthritis at the first metatarsophalangeal joint and in multiple interpha langeal joints. The soft tissues are unremarkable. IMPRESSION: 1. Polyarticular osteoarthritis without acute findings. Reviewed, dictated and finalized at location F. HANT MARINER
--- NOTE | ~2022-08-26 | XR_ITS ---
EXAMINATION: XR ankle RT 2V INDICATION: Joint pain TECHNIQUE: Two views of the right ankle are obtained. COMPARISON: None available FINDINGS: There is a partially imaged intramedullary moisés in the tibia traversing a healed distal shaf t fracture of the tibia. There is a healed fracture of the distal fibula. There is mild osteoarthriti s of the ankle and proximal foot. No acute fracture is identified. A plantar calcaneal enthesophyte i s noted. IMPRESSION: 1. Mild osteoarthritis and healed fractures of the tibia and fibula without acute osseous abnormality . Reviewed, dictated and finalized at location F. EL PILE HAMMER OPERATOR IMPRESSION: 1. Mild osteoarthritis and healed fractures of the tibia and fibula without acu te osseous abnormality.
--- NOTE | ~2022-08-26 | XR_ITS ---
EXAMINATION: XR hand RT 2V INDICATION: Right hand pain TECHNIQUE: Two views of the right hand are obtained. COMPARISON: 11/07/2018 FINDINGS: There is moderate osteoarthritis of the first carpometacarpal joint without significant chino nge. There is mild osteoarthritis of multiple interphalangeal joints as well as at the first metacarp ophalangeal joint. No fracture is identified. The soft tissues are unremarkable. IMPRESSION: 1. Polyarticular osteoarthritis without acute findings. Reviewed, dictated and finalized at location F. GE NURSE
--- NOTE | ~2022-08-26 | XR_ITS ---
EXAMINATION: XR foot RT 2V INDICATION: Right foot pain TECHNIQUE: Two views of the right foot are obtained. COMPARISON: 04/10/2005 FINDINGS: There is mild osteoarthritis at the talonavicular joint. A plantar calcaneal enthesophyte i s noted. No acute fracture is identified. There are healed fractures of the partially imaged tibia an d fibula. There is mild osteoarthritis at the first metatarsophalangeal joint and in multiple interph alangeal joints. IMPRESSION: 1. Polyarticular osteoarthritis without acute findings. Reviewed, dictated and finalized at location F. OR DEPARTMENT SUPERVISOR
--- NOTE | ~2022-08-26 | XR_ITS ---
EXAMINATION: XR hand LT 2V INDICATION: Left hand pain TECHNIQUE: Two views of the left hand are obtained. COMPARISON: None available FINDINGS: There is mild osteoarthritis at the first carpometacarpal joint and in multiple interphalan geal joints. Bone alignment is normal. There is no fracture. The soft tissues are unremarkable. IMPRESSION: 1. Mild polyarticular osteoarthritis without acute findings. Reviewed, dictated and finalized at location F. OARDING TEACHER
--- NOTE | ~2022-08-26 | XR_ITS ---
EXAMINATION: XR ankle LT 2V DATE: 08/26/2022 14:54 INDICATION: Left ankle pain TECHNIQUE: Two views of the left ankle were obtained. COMPARISON: None. FINDINGS: Bone alignment is normal. There is no fracture. There is mild osteoarthritis at the talonav icular joint. A plantar calcaneal enthesophyte is noted. The soft tissues are unremarkable. IMPRESSION: 1. Mild osteoarthritis without acute osseous abnormality. Reviewed, dictated and finalized at location F. KERCHIEF SAMPLE CLERK
== END 2022-08-26 14:10 | disposition home or self-care (01) ==
PROVIDERS: PCP Internal Medicine; Visit Provider Nurse Practitioner Family
DX: M25.50 Pain in unspecified joint (principal); M15.9 Polyosteoarthritis, unspecified
CPT/HCPCS: 72202; 73100; 73120; 73600; 73620

== ENCOUNTER 2022-11-16 13:46 | Outpatient (CLI) | payer OTHER, SELFPAY ==
[2022-11-16 14:15] LABS: Alanine Aminotransferase 36 U/L (6-35); Albumin Level 4.4 g/dL (3.5-5.1); Alkaline Phosphatase 75 U/L (38-126); Anion Gap 5 mmol/L (8-16); Aspartate Amino Transferase 35 U/L (14-36); Bilirubin,Total 0.4 mg/dL (0.2-1.3); Blood Urea Nitrogen 20 mg/dL (7-17); Calcium 9.4 mg/dL (8.4-10.2); Carbon Dioxide 32 mmol/L (22-30); Chloride 101 mmol/L (98-107); Cholesterol 188 mg/dL (0-200); Estimated Glomerular Filt Rate > 60; Glucose 138 mg/dL (65-110); HDL Direct 78 mg/dL; Potassium 4.8 mmol/L (3.4-5.0); Sodium 138 mmol/L (137-145); Triglycerides 81 mg/dL (<150)
[2022-11-16 14:26] LABS: LDL Cholesterol Direct 91 mg/dL
[2022-11-16 15:56] LABS: Hemoglobin A1C 6.1 % (<5.7)
[2022-11-16 19:24] LABS: Iron 80 ug/dL (37-170); Percent Iron Saturation 23 % (20-50); Vitamin D 25 Hydroxy 33.9 ng/mL
== END 2022-11-16 13:47 | disposition home or self-care (01) ==
LOC: ANHLAB 13:49
PROVIDERS: Internal Medicine; PCP Family Medicine; Referring Provider Nurse Practitioner Family; Visit Provider Family Medicine
DX: E78.5 Hyperlipidemia, unspecified (principal); I10 Essential (primary) hypertension; K76.0 Fatty (change of) liver, not elsewhere classified; Z79.899 Other long term (current) drug therapy; R79.0 Abnormal level of blood mineral; D64.9 Anemia, unspecified; E55.9 Vitamin D deficiency, unspecified; E11.9 Type 2 diabetes mellitus without complications; E03.9 Hypothyroidism, unspecified; M35.00 Sjogren syndrome, unspecified
CPT/HCPCS: 36415; 80053; 80061; 82306; 82728; 83036; 83540; 83550; 84443

== ENCOUNTER 2022-11-26 13:48 | Outpatient (CLI) | payer OTHER, SELFPAY ==
[2022-11-26 14:16] LABS: Basophils Absolute Auto 0.1 K/mm3 (0.0-0.1); Basophils Percent Auto 1.1 % (0.2-1.2); Eosinophils Absolute Auto 0.3 K/mm3 (0-0.3); Eosinophils Percent Auto 4.2 % (0-4.4); Hematocrit 41.3 % (37.0-47.0); Hemoglobin 12.6 g/dL (12.0-15.0); Immature Granulocyte Absolute 0.02 K/mm3 (0.00-0.031); Immature Granulocyte Percent A 0.3 % (0-0.5); Lymphocytes Absolute Auto 1.49 K/mm3 (0.9-3.2); Lymphocytes Percent Auto 23.1 % (18.3-44.2); Mean Corpuscular HGB Conc 30.5 g/dl (32-36); Mean Corpuscular Hemoglobin 29.1 pg (26-34); Mean Corpuscular Volume 95.4 fl (80-100); Mean Platelet Volume 9.2 fl (7.4-10.4); Monocytes Absolute Auto 0.5 K/mm3 (0.1-0.6); Monocytes Percent Auto 7.9 % (2.6-8.5); Neutrophils Absolute Auto 4.1 K/mm3 (1.3-6.7); Neutrophils Percent Auto 63.4 % (45.5-73.1); Platelet Count Result 216 k/mm3 (150-375); Red Blood Count 4.33 M/mm3 (4.2-5.4); Red Cell Distribution Width 14.2 % (11.5-14.5); White Blood Count 6.5 K/mm3 (4.5-10.0)
[2022-11-26 14:32] LABS: Alanine Aminotransferase 27 U/L (6-35); Albumin Level 4.2 g/dL (3.5-5.1); Alkaline Phosphatase 71 U/L (38-126); Anion Gap 5 mmol/L (8-16); Aspartate Amino Transferase 28 U/L (14-36); Bilirubin,Total 0.3 mg/dL (0.2-1.3); Blood Urea Nitrogen 15 mg/dL (7-17); CRP 1.6 mg/dL (<1.0); Calcium 9.5 mg/dL (8.4-10.2); Carbon Dioxide 31 mmol/L (22-30); Chloride 102 mmol/L (98-107); Estimated Glomerular Filt Rate > 60; Glucose 143 mg/dL (65-110); Potassium 4.5 mmol/L (3.4-5.0); Sodium 138 mmol/L (137-145)
[2022-11-26 14:33] LABS: Complement C3 152 mg/dL (88-165)
[2022-11-26 15:28] LABS: Erythrocyte Sedimentation Rate 19 mm/hr (0-20)
== END 2022-11-26 13:49 | disposition home or self-care (01) ==
LOC: ANHLAB 13:52
PROVIDERS: PCP Family Medicine; Visit Provider Nurse Practitioner Family
DX: M35.00 Sjogren syndrome, unspecified (principal); Z79.899 Other long term (current) drug therapy
CPT/HCPCS: 36415; 80053; 85025; 85652; 86140; 86160; 86225

== ENCOUNTER 2023-02-26 12:12 | Outpatient (CLI) | payer OTHER, SELFPAY ==
[2023-02-26 12:49] LABS: Basophils Absolute Auto 0.1 K/mm3 (0.0-0.1); Basophils Percent Auto 1.5 % (0.2-1.2); Eosinophils Absolute Auto 0.3 K/mm3 (0-0.3); Eosinophils Percent Auto 3.7 % (0-4.4); Hematocrit 42.4 % (37.0-47.0); Hemoglobin 12.8 g/dL (12.0-15.0); Immature Granulocyte Absolute 0.03 K/mm3 (0.00-0.031); Immature Granulocyte Percent A 0.4 % (0-0.5); Lymphocytes Absolute Auto 1.89 K/mm3 (0.9-3.2); Lymphocytes Percent Auto 25.1 % (18.3-44.2); Mean Corpuscular HGB Conc 30.2 g/dl (32-36); Mean Corpuscular Volume 95.9 fl (80-100); Mean Platelet Volume 9.5 fl (7.4-10.4); Monocytes Absolute Auto 0.6 K/mm3 (0.1-0.6); Monocytes Percent Auto 8.2 % (2.6-8.5); Neutrophils Absolute Auto 4.6 K/mm3 (1.3-6.7); Neutrophils Percent Auto 61.1 % (45.5-73.1); Platelet Count Result 255 k/mm3 (150-375); Red Blood Count 4.42 M/mm3 (4.2-5.4); White Blood Count 7.5 K/mm3 (4.5-10.0)
[2023-02-26 13:01] LABS: Alanine Aminotransferase 23 U/L (6-35); Albumin Level 4.2 g/dL (3.5-5.1); Alkaline Phosphatase 69 U/L (38-126); Anion Gap 8 mmol/L (8-16); Aspartate Amino Transferase 28 U/L (14-36); Bilirubin,Total 0.4 mg/dL (0.2-1.3); Blood Urea Nitrogen 21 mg/dL (7-17); CRP 1.1 mg/dL (<1.0); Calcium 9.7 mg/dL (8.4-10.2); Carbon Dioxide 29 mmol/L (22-30); Chloride 103 mmol/L (98-107); Estimated Glomerular Filt Rate > 60; Glucose 106 mg/dL (65-110); Potassium 4.4 mmol/L (3.4-5.0); Sodium 140 mmol/L (137-145)
[2023-02-26 15:05] LABS: Erythrocyte Sedimentation Rate 22 mm/hr (0-20)
== END 2023-02-26 12:13 | disposition home or self-care (01) ==
LOC: ANHLAB 12:15
PROVIDERS: PCP Family Medicine; Visit Provider Nurse Practitioner Family
DX: M35.00 Sjogren syndrome, unspecified (principal); Z79.899 Other long term (current) drug therapy
CPT/HCPCS: 36415; 80053; 85025; 85652; 86140

== ENCOUNTER 2023-04-26 13:47 | Outpatient (CLI) | payer OTHER, SELFPAY ==
[2023-04-26 14:32] LABS: Basophils Absolute Auto 0.1 K/mm3 (0.0-0.1); Basophils Percent Auto 1.1 % (0.2-1.2); Eosinophils Absolute Auto 0.3 K/mm3 (0-0.3); Eosinophils Percent Auto 3.5 % (0-4.4); Hemoglobin 12.9 g/dL (12.0-15.0); Immature Granulocyte Absolute 0.02 K/mm3 (0.00-0.031); Immature Granulocyte Percent A 0.3 % (0-0.5); Lymphocytes Absolute Auto 1.39 K/mm3 (0.9-3.2); Lymphocytes Percent Auto 19.4 % (18.3-44.2); Mean Corpuscular HGB Conc 30.7 g/dl (32-36); Mean Corpuscular Hemoglobin 29.7 pg (26-34); Mean Corpuscular Volume 96.8 fl (80-100); Mean Platelet Volume 9.5 fl (7.4-10.4); Monocytes Absolute Auto 0.5 K/mm3 (0.1-0.6); Monocytes Percent Auto 6.8 % (2.6-8.5); Neutrophils Absolute Auto 4.9 K/mm3 (1.3-6.7); Neutrophils Percent Auto 68.9 % (45.5-73.1); Platelet Count Result 239 k/mm3 (150-375); Red Blood Count 4.34 M/mm3 (4.2-5.4); Red Cell Distribution Width 14.5 % (11.5-14.5); White Blood Count 7.2 K/mm3 (4.5-10.0)
[2023-04-26 14:44] LABS: Alanine Aminotransferase 23 U/L (6-35); Albumin Level 4.4 g/dL (3.5-5.1); Alkaline Phosphatase 76 U/L (38-126); Anion Gap 4 mmol/L (8-16); Aspartate Amino Transferase 26 U/L (14-36); Bilirubin,Total 0.6 mg/dL (0.2-1.3); Blood Urea Nitrogen 15 mg/dL (7-17); Calcium 9.8 mg/dL (8.4-10.2); Carbon Dioxide 33 mmol/L (22-30); Chloride 102 mmol/L (98-107); Estimated Glomerular Filt Rate > 60; Glucose 99 mg/dL (65-110); Potassium 4.2 mmol/L (3.4-5.0); Sodium 139 mmol/L (137-145)
[2023-04-26 15:02] LABS: Erythrocyte Sedimentation Rate 23 mm/hr (0-20)
== END 2023-04-26 13:48 | disposition home or self-care (01) ==
LOC: ANHLAB 13:50
PROVIDERS: PCP Family Medicine; Visit Provider Nurse Practitioner Family
DX: M35.00 Sjogren syndrome, unspecified (principal); Z79.899 Other long term (current) drug therapy; D51.9 Vitamin B12 deficiency anemia, unspecified
CPT/HCPCS: 36415; 80053; 82607; 85025; 85652; 86140

== ENCOUNTER 2023-05-24 10:44 | Outpatient (CLI) | payer OTHER, SELFPAY ==
[2023-05-24 11:19] LABS: Alanine Aminotransferase 19 U/L (6-35); Albumin Level 4.6 g/dL (3.5-5.1); Alkaline Phosphatase 57 U/L (38-126); Anion Gap 11 mmol/L (8-16); Aspartate Amino Transferase 26 U/L (14-36); Bilirubin,Total 0.6 mg/dL (0.2-1.3); Blood Urea Nitrogen 12 mg/dL (7-17); Calcium 10.1 mg/dL (8.4-10.2); Carbon Dioxide 29 mmol/L (22-30); Chloride 101 mmol/L (98-107); Cholesterol 184 mg/dL (0-200); Estimated Glomerular Filt Rate > 60; Glucose 126 mg/dL (65-110); HDL Direct 76 mg/dL; Sodium 141 mmol/L (137-145); Triglycerides 78 mg/dL (<150)
[2023-05-24 11:30] LABS: Hemoglobin A1C 5.3 % (<5.7); LDL Cholesterol Direct 77 mg/dL
== END 2023-05-24 10:45 | disposition home or self-care (01) ==
LOC: ANHLAB 10:46
PROVIDERS: PCP Family Medicine; Visit Provider Nurse Practitioner
DX: E11.9 Type 2 diabetes mellitus without complications (principal); E78.5 Hyperlipidemia, unspecified
CPT/HCPCS: 36415; 80053; 80061; 83036

== ENCOUNTER 2023-06-13 15:20 | Outpatient (CLI) | payer OTHER, SELFPAY ==
--- NOTE | ~2023-06-13 | XR_ITS ---
XR lumbar spine 2-3V 06/13/2023 15:45 Indication: Back pain Procedure: 3 views lumbar spine Comparison: 10/21/2014 Findings: There is disc narrowing at all lumbar levels except L3-4. There is dextroscoliosis centered at L4. There is grade 1 degenerative spondylolisthesis at L5-S1. There is facet hypertrophy at L5-S1 . There are cholecystectomy clips. No acute fracture or traumatic malalignment. Impression: 1: Moderate lumbar spondylosis. Reviewed, dictated and finalized at location A. WOOD LATHE OPERATOR Impression: 1: Moderate lumbar spondylosis.
== END 2023-06-13 15:21 | disposition home or self-care (01) ==
LOC: ANHIMG 15:23
PROVIDERS: PCP Family Medicine; Visit Provider Nurse Practitioner
DX: M43.06 Spondylolysis, lumbar region (principal); M54.41 Lumbago with sciatica, right side; M54.42 Lumbago with sciatica, left side
CPT/HCPCS: 72100

== ENCOUNTER 2023-08-23 15:45 | Outpatient (CLI) | payer OTHER, SELFPAY ==
[2023-08-23 16:46] LABS: Basophils Absolute Auto 0.1 K/mm3 (0.0-0.1); Basophils Percent Auto 0.9 % (0.2-1.2); Eosinophils Absolute Auto 0.3 K/mm3 (0-0.3); Eosinophils Percent Auto 3.7 % (0-4.4); Hematocrit 45.8 % (37.0-47.0); Hemoglobin 13.8 g/dL (12.0-15.0); Immature Granulocyte Absolute 0.03 K/mm3 (0.00-0.031); Immature Granulocyte Percent A 0.3 % (0-0.5); Lymphocytes Absolute Auto 1.82 K/mm3 (0.9-3.2); Mean Corpuscular HGB Conc 30.1 g/dl (32-36); Mean Corpuscular Hemoglobin 28.4 pg (26-34); Mean Corpuscular Volume 94.2 fl (80-100); Monocytes Absolute Auto 0.6 K/mm3 (0.1-0.6); Monocytes Percent Auto 7.3 % (2.6-8.5); Neutrophils Absolute Auto 5.8 K/mm3 (1.3-6.7); Neutrophils Percent Auto 66.8 % (45.5-73.1); Platelet Count Result 265 k/mm3 (150-375); Red Blood Count 4.86 M/mm3 (4.2-5.4); Red Cell Distribution Width 14.6 % (11.5-14.5); White Blood Count 8.7 K/mm3 (4.5-10.0)
[2023-08-23 17:09] LABS: Alanine Aminotransferase 21 U/L (6-35); Albumin Level 4.6 g/dL (3.5-5.1); Alkaline Phosphatase 65 U/L (38-126); Anion Gap 5 mmol/L (8-16); Aspartate Amino Transferase 28 U/L (14-36); Bilirubin,Total 0.5 mg/dL (0.2-1.3); Blood Urea Nitrogen 16 mg/dL (7-17); Calcium 10.2 mg/dL (8.4-10.2); Carbon Dioxide 31 mmol/L (22-30); Chloride 103 mmol/L (98-107); Estimated Glomerular Filt Rate 56; Glucose 131 mg/dL (65-110); Sodium 139 mmol/L (137-145)
[2023-08-23 17:21] LABS: CRP 1.4 mg/dL (<1.0)
[2023-08-23 17:24] LABS: Erythrocyte Sedimentation Rate 13 mm/hr (0-20)
[2023-08-23 18:50] LABS: Complement C3 186 mg/dL (88-165)
== END 2023-08-23 15:46 | disposition home or self-care (01) ==
LOC: ANHLAB 15:47
PROVIDERS: PCP Family Medicine; Visit Provider Nurse Practitioner Family
DX: M35.00 Sjogren syndrome, unspecified (principal); Z79.899 Other long term (current) drug therapy
CPT/HCPCS: 36415; 80053; 85025; 85652; 86140; 86160; 86225

== ENCOUNTER 2023-09-27 09:20 | Day surgery (SDC) | payer OTHER, SELFPAY ==
[2023-09-14 13:36] VITALS: BMI 60.9
--- NOTE | ~2023-09-27 | XR_ITS ---
EXAMINATION: XR fluoroscopy no charge DATE: 09/27/2023 12:38 INDICATION: Bilateral L4-L5 transforaminal injections TECHNIQUE: 75 images of the lumbar spine were obtained during procedure performed by Dr. Foster. Radiol ogist was not present for the imaging or procedure. The amount of fluoroscopy time used during this p rocedure was 1.0 minutes. COMPARISON: 06/13/2023 FINDINGS/IMPRESSION: Images demonstrate the tips of paraspinal needles projecting over the region of the bilateral L4-L5 n eural foramina. See procedure note for further detail. Reviewed, dictated and finalized at location A.
[2023-09-27 10:11] VITALS: BMI 60.5
[2023-09-27 10:13] VITALS: BP 175/87; PULSE 72; RESP 20; TEMP 36.6; O2SAT 96
--- NOTE | 2023-09-27 11:48 | WPDHPUPDATE1 ---
History and Physical Update Update Date/Time: 09/27/23 11:48 History and Physical has been reviewed, including an updated exam of the patient. There are NO changes in the patient's condition. Risks, benefits, and alternatives have been discussed and questions answered. Patient agrees to proceed with procedure.
--- NOTE | 2023-09-27 11:49 | W.PM.PROC2 ---
Procedure Note - Detailed Date of Procedure 09/27/23 Pre-op Diagnosis Lumbar Spinal Stenosis w/Neurogenic Claudication, Lumbar Radiculopathy Post-op Diagnosis Same Procedure Performed bilateral L4-5 transforaminal epidural steroid injection with fluoroscopic guidance and contrast control Surgeon Xu Foster MD Anesthesia Local Description of Procedure INFORMED CONSENT: Risks, benefits and alternatives to the procedure were discussed in detail with the patient who expressed explicit understanding and consent to proceed. Patient was informed verbally and in written form regarding the risks associated with the procedure including the low risk of serious infection, bleeding/bruising, allergic reaction, nerve or organ injury, paralysis, procedural site pain or discomfort, worsening pain and/or mobility, failure to treat and/or disfigurement. The patient expressed explicit understanding and consent to proceed. All materials required for the procedure were available prior to procedure start. Site and side was marked prior to procedure and confirmed in the presence of the patient. PROCEDURE IN DETAIL: The patient was brought to the procedural suite and placed in the prone position. Patient was made comfortable with use of pillows under the head/chest, hips and ankles. Skin overlying the injection site was prepared broadly with ChloraPrep applicator and draped in a sterile manner. Aseptic technique was employed throughout. The endplates of the vertebral body at the site of interest were aligned in the AP view. Ipsilateral oblique angulation was utilized to better visualize the neuroforamen of interest. Local anesthesia was established by infiltration with approximately 5 mL of 2% lidocaine via a 1-1/2 inch 27-gauge needle. A 22-gauge 5.0 inch Jaya (pencil point) spinal needle was advanced until the needle approached the 6 o'clock position on the pedicle just superior to the exiting nerve root. on the right at L4-5. Lateral view was utilized to confirm appropriate position of the needle tip within the superior and posterior portion of the respective foramen. In an AP view, 1 mL of Omnipaque 300 contrast medium was injected after negative aspiration for CSF, blood or other bodily fluid, showing appropriate neurogram without evidence of intravascular or intrathecal spread of contrast. Digital subtraction imaging was used with an additional 1ml of the same contrast medium to confirm absence of intravascular contrast spread. A 1mL solution containing 3 mg of betamethasone was injected after negative repeat aspiration. Appropriate spread of the injectate was confirmed with washout of previously injected contrast. No parasthesias were elicited. Needle was removed completely intact without difficulty. The same exact procedure was repeated for all remaining levels on the contralateral side, left L4-5 neural foramen, modified as necessary to accommodate for the new target location with identical findings and results and no evidence of complication. Images were saved and documented in the patient chart. Patient's skin was cleaned and sterile bandage applied. The patient tolerated the procedure well. The patient was transported to the recovery area in stable condition where they were observed for an appropriate amount of time prior to discharge, without evidence of complication. The patient was instructed to avoid excessive activity for the next 48 hours, including climbing and frequent use of stairs. Showers only for 48 hours. They were instructed not to drive or operate heavy machinery for 24 hours. They are to monitor for severe headaches, fevers, chills, night sweats, erythema/swelling at the site or any other signs of infection, bleeding/bruising, bowel or bladder changes as well as new pain, weakness or numbness in the upper or lower extremity. Should they notice these changes, they are instructed to call our office immediately or report directly to the nearest [facility]
[2023-09-27 12:23] VITALS: BP 184/89; PULSE 78; RESP 20; O2SAT 93
[2023-09-27] MEDS: LIDOCAINE HCL 1% PF INJ 5 ML VIAL 2 ML INFILTRATE (12:26)
[2023-09-27 12:28] VITALS: BP 178/81; PULSE 80; RESP 15; O2SAT 96
[2023-09-27] MEDS: BETAMETHASONE SODIUM PHOSPHATE PF INJ 6 MG/ML VIAL INFILTRATE (12:31)
[2023-09-27] MEDS: LIDOCAINE HCL 2% PF INJ 5 ML VIAL 1 ML INFILTRATE (12:31)
[2023-09-27 12:33] VITALS: BP 162/80; PULSE 76; RESP 8; O2SAT 96
[2023-09-27 12:37] VITALS: BP 159/71; PULSE 66; RESP 18; O2SAT 93
== END 2023-09-27 12:48 | disposition home or self-care (01) ==
PROVIDERS: PCP Family Medicine; Visit Provider Anesthesiology Pain Medicine
PROC: (CPT 64483; principal; 2023-09-27 10:30)
DX: M48.062 Spinal stenosis, lumbar region with neurogenic claudication (principal); M54.16 Radiculopathy, lumbar region
CPT/HCPCS: 64483; 99199

== ENCOUNTER 2023-11-03 11:00 | Outpatient (RCR) | payer OTHER, SELFPAY ==
--- NOTE | 2023-08-22 09:01 | PTOPEVAL1 ---
Assessment and note entered by Chadwick Arriaza, PT Evaluation Information Assessment Status Evaluation Diagnosis Back Pain, Fibromyalgia, Lumbar stenosis, Neurogenic claudication Onset November 2022 Subjective Information Reports that she has had significant pain starting mostly in November of last year. She has been having increased pain with walking and activity since then. She has seen some minor improvement in the past couple months but is constantly using modality heat for pain relief . Most of pain is in her butt and posterior thighs. She uses both a Rollator and walker depending on how far she has to go. She is having difficulty bending over tor retrieve things. Her right side is a little better and most of her pain is on the left side. She has to sleep supine. Reported Pain Level Pain Score 5: Self Report Assessment PT Clinical Summary Patient presents with signs and symptoms consistent with stenotic nerve pain in lumbar spine. Functional decrease noted with weakness of hips. Will benefit from skilled therapy to improve gross mobility, stability, and fluidity of motion to reduce pain and improve overall function. Plan of Care Interventions Aquatic Therapy,Gait Training,Manual Therapy, Therapeutic Activities,Therapeutic Exercise PT Services Indicated Yes Treatment Frequency and 2x/week for 10 visits Duration These treatments will address the objective and functional deficits as defined above. The patient will be advanced safely and appropriately in order for the patient to progress towards his/her prior level of function. Additional exercises will be introduced and as well as a comprehensive home exercise program upon discharge, if needed, ?to ensure carryover of functional gains achieved in the clinic. This treatment plan has been reviewed and agreement upon by the patient.
--- NOTE | 2023-08-22 09:01 | OPREHPOC ---
Outpatient Therapy Plan of Care This is a Multidisciplinary Plan of Care that may contain components documented by all disciplines (PT, OT, and ST.) PT Problem 1 PT Problem #1 Knowledge Deficit PT Goal 1 Goal Independent with HEP Target Visit 4 PT Problem 2 PT Problem #2 Impaired Range of Motion PT Goal 1 Goal Improve mari hip abduction to 45 degrees to improve joint capsule mobility Target Visit 10 PT Goal 2 Goal Improve mari hip internal rotation to 30 degrees to improve closed luzmaria joint congruency for improved gait Target Visit 10 PT Problem 3 PT Problem #3 Impaired Flexibility PT Goal 1 Goal Demonstrate no hamstring restriction bilaterally to reduce posterior pelvic tension with gait and ADLs Target Visit 10
--- NOTE | 2023-09-16 13:02 | PCPTNOTE ---
pt called and canceled today's appt due to illness.
--- NOTE | 2023-09-26 10:14 | PTOPPROG ---
Assessment and note entered by Elisa Quevedo, PT Progress Information Assessment Status Progress Diagnosis Back Pain, Fibromyalgia, Lumbar stenosis, Neurogenic claudication Onset November 2022 Subjective Information feel like moving better, but still having pain; use wheeled walker or cane when walking; to get an injection tomorrow; insurance is working for approval for surgery; want to continue therapy; PAIN: range in the past week 1-9/10; nerve pain in L leg is better since taking cymbalta-- not as bad pins and needles increase pain: walking, increase activity decrease pain: heat, pain meds, change position radicular pain to R post mid thigh intermittent / L to toes at worst, constant to mid calf Assessment PT Clinical Summary Madelin has received 9 PT sessions. Compared to the initial evaluation: pain range from 3-9/10 to 1-9/10; radicular pain into R mid thigh and L to toes; self assessment Oswestry score from 58 to 54% limitation in activity; is tolerating the aquatic exercises well; increase hip flexibility and strength; 2 minute walking test distance of 275' with cane; The goals were partially met. Continue PT treatments in water and on land, to further increase strength and decrease pain. Plan of Care Interventions Aquatic Therapy,Electrical Stimulation,Hot Pack/ Cold Pack,Manual Therapy,Neuro Re-education, Patient Education,Therapeutic Activities, Therapeutic Exercise,Ultrasound,Other Other Interventions seing, IASXIN PT Services Indicated Yes Treatment Frequency and 2x/ wk for 10 visits Duration These treatments will address the objective and functional deficits as defined above. The patient will be advanced safely and appropriately in order for the patient to progress towards his/her prior level of function. Additional exercises will be introduced and as well as a comprehensive home exercise program upon discharge, if needed, ?to ensure carryover of functional gains achieved in the clinic. This treatment plan has been reviewed and agreement upon by the patient.
--- NOTE | 2023-09-26 10:14 | OPREHPOC ---
Outpatient Therapy Plan of Care This is a Multidisciplinary Plan of Care that may contain components documented by all disciplines (PT, OT, and ST.) PT Problem 1 PT Problem #1 Knowledge Deficit PT Goal 1 Goal Independent with HEP Target Visit 4 Progress Met Comment 09-26-23 progress met goal continue towards goal to progress HEP PT Problem 2 PT Problem #2 Impaired Range of Motion PT Goal 1 Goal Improve mari hip abduction to 45 degrees to improve joint capsule mobility Target Visit 10 Progress Met Comment 09-26-23 progress met goal NEW GOALS: pt perform 1 rep without an increase in pain reported 1* supine R hip ER 2* supine L hip flexion 3* supine L hip IR PT Goal 2 Goal Improve mari hip internal rotation to 30 degrees to improve closed luzmaria joint congruency for improved gait Target Visit 10 Progress Not Met Comment 09-26-23 progress goal not met continue towards PT Problem 3 PT Problem #3 Impaired Flexibility PT Goal 1 Goal Demonstrate no hamstring restriction bilaterally to reduce posterior pelvic tension with gait and ADLs Target Visit 10 Progress Met Comment 09-26-23 progress met goal PT Problem 4 PT Problem #4 Impaired Functional Mobil PT Goal 1 Goal 09-26-23 progress NEW GOALS: 1* 2 minute walking test distance with cane, 350' 2* report NO pain increase with 2 minute walking test
--- NOTE | 2023-10-07 12:50 | PCPTNOTE ---
Pt cancelled due to bronchitis issues
--- NOTE | 2023-11-03 11:45 | PTOPDC ---
Assessment and note entered by Elisa Quevedo, PT Discharge Information Assessment Status Discharge Diagnosis Back Pain, Fibromyalgia, Lumbar stenosis, Neurogenic claudication Onset November 2022 Subjective Information back is still hurting, hurts more after I have therapy; standing 10-15 minutes and pain is worse have to sit but only for about 1 minute then can get up and go again; using the cane or rollator with walking outside of home, in home sometimes walk without them; problems with walking in stores and shopping, cannot walk very much; had 2 injections, they helped- intense pain is less, but now starting to hurt more and wear off; awaiting insurance approval for SI injection and MILD. have a membership to the [facility]-- will go there for aquatic exercises and do the bicycle or stepper. Agree to discharge PT. Reported Pain Level Pain Score Self Report Additional Pain Score Comments sit and resting, dull ache; with more activity, more pain--8/10, at least 2/10; intermittent into L LE to mid calf & R to knee; neuropathy in both feet; is able to cook a light meal and clean up kitchen, but have more pain and have to rest several times Assessment PT Clinical Summary Madelin has received 16 PT sessions. Compared to the last progress report: pain rating from 1-9/10 to 2-8/10; radicular pain into R LE is more--was to mid thigh, now to above knee and L LE is less--was to toes and now to mid calf; reported standing/activity level with home tasks and cooking is better; self assessment Oswestry from 54% to 46% limitation; 2 minute walking test distance is increased from 275' to 300'; increase strength of LE's with supine exercises; continues to have pain with R and L hip motions. Education completed for HEP in water and on land. She has an improved understanding of activity/ rest balance to manage her pain. The goals were partially met. Discharge PT services. She is to continue with her HEP and do aquatic exercises at the [facility]. Plan of Care PT Services Indicated No
== END 2023-11-03 13:12 | disposition home or self-care (01) ==
LOC: ANHPT 11:00
PROVIDERS: PCP Family Medicine; Visit Provider Anesthesiology Pain Medicine
DX: M79.7 Fibromyalgia (principal); M15.9 Polyosteoarthritis, unspecified; M48.062 Spinal stenosis, lumbar region with neurogenic claudication; G89.29 Other chronic pain
CPT/HCPCS: 97110; 97113; 97161; 97530

== ENCOUNTER 2023-11-15 13:16 | Outpatient (CLI) | payer OTHER, SELFPAY ==
[2023-11-15 13:48] LABS: Basophils Absolute Auto 0.1 K/mm3 (0.0-0.1); Basophils Percent Auto 1.3 % (0.2-1.2); Eosinophils Absolute Auto 0.3 K/mm3 (0-0.3); Eosinophils Percent Auto 4.7 % (0-4.4); Hematocrit 44.7 % (37.0-47.0); Hemoglobin 13.7 g/dL (12.0-15.0); Immature Granulocyte Absolute 0.02 K/mm3 (0.00-0.031); Immature Granulocyte Percent A 0.3 % (0-0.5); Lymphocytes Absolute Auto 1.46 K/mm3 (0.9-3.2); Lymphocytes Percent Auto 21.3 % (18.3-44.2); Mean Corpuscular HGB Conc 30.6 g/dl (32-36); Mean Corpuscular Hemoglobin 28.7 pg (26-34); Mean Corpuscular Volume 93.7 fl (80-100); Mean Platelet Volume 9.8 fl (7.4-10.4); Monocytes Absolute Auto 0.6 K/mm3 (0.1-0.6); Monocytes Percent Auto 9.2 % (2.6-8.5); Neutrophils Absolute Auto 4.4 K/mm3 (1.3-6.7); Neutrophils Percent Auto 63.2 % (45.5-73.1); Platelet Count Result 281 k/mm3 (150-375); Red Blood Count 4.77 M/mm3 (4.2-5.4); Red Cell Distribution Width 13.6 % (11.5-14.5); White Blood Count 6.9 K/mm3 (4.5-10.0)
[2023-11-15 14:13] LABS: Alanine Aminotransferase 23 U/L (6-35); Albumin Level 4.8 g/dL (3.5-5.1); Alkaline Phosphatase 58 U/L (38-126); Anion Gap 10 mmol/L (4-12); Aspartate Amino Transferase 29 U/L (14-36); Bilirubin,Total 0.5 mg/dL (0.2-1.3); Blood Urea Nitrogen 22 mg/dL (7-17); CRP 0.7 mg/dL (<1.0); Carbon Dioxide 24 mmol/L (22-30); Chloride 104 mmol/L (98-107); Estimated Glomerular Filt Rate 56; Glucose 120 mg/dL (65-110); Potassium 5.1 mmol/L (3.4-5.0); Sodium 138 mmol/L (137-145)
[2023-11-15 14:21] LABS: Complement C3 173 mg/dL (88-165)
[2023-11-15 16:11] LABS: Erythrocyte Sedimentation Rate 13 mm/hr (0-20)
== END 2023-11-15 13:17 | disposition home or self-care (01) ==
PROVIDERS: PCP Nurse Practitioner; Visit Provider Nurse Practitioner Family
DX: M35.00 Sjogren syndrome, unspecified (principal); Z79.899 Other long term (current) drug therapy
CPT/HCPCS: 36415; 80053; 85025; 85652; 86140; 86160; 86225

== ENCOUNTER 2024-02-06 10:48 | Outpatient (CLI) | payer OTHER, SELFPAY ==
[2024-02-06 11:27] LABS: Basophils Absolute Auto 0.1 K/mm3 (0.0-0.1); Basophils Percent Auto 1.8 % (0.2-1.2); Eosinophils Absolute Auto 0.3 K/mm3 (0-0.3); Eosinophils Percent Auto 5.5 % (0-4.4); Hematocrit 43.5 % (37.0-47.0); Immature Granulocyte Absolute 0.02 K/mm3 (0.00-0.031); Immature Granulocyte Percent A 0.4 % (0-0.5); Lymphocytes Absolute Auto 1.27 K/mm3 (0.9-3.2); Lymphocytes Percent Auto 22.6 % (18.3-44.2); Mean Corpuscular HGB Conc 29.9 g/dl (32-36); Mean Corpuscular Hemoglobin 29.1 pg (26-34); Mean Corpuscular Volume 97.3 fl (80-100); Mean Platelet Volume 9.5 fl (7.4-10.4); Monocytes Absolute Auto 0.4 K/mm3 (0.1-0.6); Monocytes Percent Auto 6.4 % (2.6-8.5); Neutrophils Absolute Auto 3.6 K/mm3 (1.3-6.7); Neutrophils Percent Auto 63.3 % (45.5-73.1); Platelet Count Result 244 k/mm3 (150-375); Red Blood Count 4.47 M/mm3 (4.2-5.4); Red Cell Distribution Width 14.6 % (11.5-14.5); White Blood Count 5.6 K/mm3 (4.5-10.0)
[2024-02-06 11:40] LABS: Alanine Aminotransferase 21 U/L (6-35); Albumin Level 4.2 g/dL (3.5-5.1); Alkaline Phosphatase 59 U/L (38-126); Anion Gap 9 mmol/L (4-12); Aspartate Amino Transferase 26 U/L (14-36); Bilirubin,Total 0.5 mg/dL (0.2-1.3); Blood Urea Nitrogen 19 mg/dL (7-17); Calcium 9.7 mg/dL (8.4-10.2); Carbon Dioxide 32 mmol/L (22-30); Chloride 99 mmol/L (98-107); Cholesterol 185 mg/dL (0-200); Estimated Glomerular Filt Rate > 60; Glucose 114 mg/dL (65-110); HDL Direct 82 mg/dL; Potassium 4.6 mmol/L (3.4-5.0); Sodium 140 mmol/L (137-145); Triglycerides 74 mg/dL (<150)
[2024-02-06 11:50] LABS: LDL Cholesterol Direct 78 mg/dL
[2024-02-06 12:12] LABS: Erythrocyte Sedimentation Rate 20 mm/hr (0-20)
[2024-02-06 12:34] LABS: Atypical Lymphocytes Present; Hypochromasia 1+; Platelet Estimate Adequate (Adequate); Schistocytes None Seen
[2024-02-06 12:58] LABS: Hemoglobin A1C 5.7 % (<5.7)
== END 2024-02-06 10:49 | disposition home or self-care (01) ==
PROVIDERS: PCP Nurse Practitioner; Referring Provider Nurse Practitioner Family; Visit Provider Internal Medicine
DX: E78.5 Hyperlipidemia, unspecified (principal); R73.9 Hyperglycemia, unspecified; M35.00 Sjogren syndrome, unspecified; Z79.899 Other long term (current) drug therapy
CPT/HCPCS: 36415; 80053; 80061; 83036; 85025; 85652; 86140

== ENCOUNTER 2024-04-16 00:34 | Day surgery (SDC) | payer OTHER, SELFPAY ==
[2024-04-12 09:10] VITALS: BMI 57.2
--- NOTE | 2024-04-12 09:17 | PC.NURSE ---
Report to the Outpatient Waiting Room, entrance under the green pavilion located off [facility], at time _0845_ on date _12-05-5824_. Planned Procedure Time: _0945_.? Time changes happen often and if your time is changed the preop area will call you the afternoon before. - You and your visitor will be asked to self-screen and do not enter if you have any COVID symptoms. Please call surgeon if you need to reschedule. - A mask is optional within the hospital at this time. Light breakfast then nothing to eat or drink for 2 hours prior to surgery. Take only the following medications with a SIP of water on the morning of surgery: __Take morning medications. DO NOT STOP ANY OF YOUR OTHER PRESCRIPTION MEDICATIONS PRIOR TO SURGERY EXCEPT THE FOLLOWING Medications to discontinue per physician ____Patient stopped Ibuprofen [id number] Please no make-up, nail chinese, hairspray, perfume, deodorant, or body powder the day of surgery.? No jewelry (including any body piercings) or valuables the day of surgery, leave them at home.? Please take a shower or bath the night before, or the morning of, surgery with an antibacterial soap.? Wear comfortable, loose fitting clothing.? - Jewelry must be removed prior to entering the operating room.? Rings and piercings that are not removed may be cut off. - The hospital will not accept responsibility for valuables.? - Please leave all valuables, including medications, at home the day of surgery. If you are going home after surgery, a licensed catshovel driver must drive you home.? - NO public transportation without another adult if you receive anesthesia. - We recommend that an adult stay with you for 24 hours following discharge. - We also recommend that you do not drive, make important decision, drink alcoholic beverages, or take any drugs that were not prescribed by your health care provider for at least 24 hours after your discharge time. Follow any additional instructions given to you from your surgeon. Telephone instructions given to _Angel__and asked if any additional questions and then verbalized understanding. Patient advised to call surgeon office or pre surgery nurse liaison [phone] if any additional questions.
--- NOTE | ~2024-04-16 | XR_ITS ---
XR fluoroscopy no charge Indication: Bilateral L4-5 transforaminal epidural steroid injection TECHNIQUE: Fluoroscopy used during Bilateral L4-5 transforaminal epidural steroid injection performe d by [Xu Foster MD] on 04/16/2024. 42 seconds of fluoroscopy with 73 fluoroscopic images c aptured. FINDINGS: Correlate with procedure note. IMPRESSION: Fluoroscopy used during Bilateral L4-5 transforaminal epidural steroid injection. Reviewed, dictated and finalized at location B. IMPRESSION: Fluoroscopy used during Bilateral L4-5 transforaminal epidural ster oid injection.
--- NOTE | 2024-04-16 09:11 | WPDHPUPDATE1 ---
History and Physical Update Update Date/Time: 04/16/24 09:11 History and Physical has been reviewed, including an updated exam of the patient. There are NO changes in the patient's condition. Risks, benefits, and alternatives have been discussed and questions answered. Patient agrees to proceed with procedure.
--- NOTE | 2024-04-16 09:12 | W.PM.PROC2 ---
Procedure Note - Detailed Date of Procedure 04/16/24 Pre-op Diagnosis lumbosacral radiculopathy Post-op Diagnosis Same Procedure Performed Bilateral Lumbar Transforaminal Epidural Steroid Injection under Fluoroscopic Guidance and with Contrast Control at L4-5. Surgeon Xu Foster MD Pr Intern NONE. Anesthesia Local Description of Procedure INFORMED CONSENT: Risks, benefits and alternatives to the procedure were discussed in detail with the patient who expressed explicit understanding and consent to proceed. Patient was informed verbally and in written form regarding the risks associated with the procedure including the low risk of serious infection, bleeding/bruising, allergic reaction, nerve or organ injury, paralysis, procedural site pain or discomfort, worsening pain and/or mobility, failure to treat and/or disfigurement. The patient expressed explicit understanding and consent to proceed. All materials required for the procedure were available prior to procedure start. Site and side was marked prior to procedure and confirmed in the presence of the patient. PROCEDURE IN DETAIL: The patient was brought to the procedural suite and placed in the prone position. Patient was made comfortable with use of pillows under the head/chest, hips and ankles. Skin overlying the injection site was prepared broadly with ChloraPrep applicator and draped in a sterile manner. Aseptic technique was employed throughout. The endplates of the vertebral body at the site of interest were aligned in the AP view. Ipsilateral oblique angulation was utilized to better visualize the neuroforamen of interest. Local anesthesia was established by infiltration with approximately 5 mL of 0.5% PF lidocaine via a 1-1/2 inch 27-gauge needle. A 22-gauge 5.0 inch Jaya (pencil point) spinal needle was advanced until the needle approached the 6 o'clock position on the pedicle just superior to the exiting nerve root. on the right at L4-5. Lateral view was utilized to confirm appropriate position of the needle tip within the superior and posterior portion of the respective foramen. In an AP view, 1 mL of Omnipaque 300 contrast medium was injected after negative aspiration for CSF, blood or other bodily fluid, showing appropriate neurogram without evidence of intravascular or intrathecal spread of contrast. Digital subtraction imaging was used with an additional 1ml of the same contrast medium to confirm absence of intravascular contrast spread. A 1mL solution containing 3 mg of betamethasone was injected after negative repeat aspiration. Appropriate spread of the injectate was confirmed with washout of previously injected contrast. No parasthesias were elicited. Needle was removed completely intact without difficulty. The same exact procedure was repeated for all remaining levels on the contralateral side, left L4-5 neuroforamen, modified as necessary to accommodate for the new target location with identical findings and results and no evidence of complication. Images were saved and documented in the patient chart. Patient's skin was cleaned and sterile bandage applied. The patient tolerated the procedure well. The patient was transported to the recovery area in stable condition where they were observed for an appropriate amount of time prior to discharge, without evidence of complication. The patient was instructed to avoid excessive activity for the next 48 hours, including climbing and frequent use of stairs. Showers only for 48 hours. They were instructed not to drive or operate heavy machinery for 24 hours. They are to monitor for severe headaches, fevers, chills, night sweats, erythema/swelling at the site or any other signs of infection, bleeding/bruising, bowel or bladder changes as well as new pain, weakness or numbness in the upper or lower extremity. Should they notice these changes, they are instructed to call our office immediately or report directly to the nearest Emergency Departme
[2024-04-16 09:25] VITALS: BMI 57.1
[2024-04-16 09:32] VITALS: BP 137/72; PULSE 78; RESP 14; TEMP 36.1; O2SAT 99
[2024-04-16 09:56] VITALS: BP 153/68; PULSE 70; RESP 16; O2SAT 96
[2024-04-16 10:01] VITALS: BP 148/67; PULSE 72; RESP 14; O2SAT 96
[2024-04-16] MEDS: BETAMETHASONE SODIUM PHOSPHATE PF INJ 6 MG/ML VIAL INFILTRATE (10:02)
[2024-04-16] MEDS: LIDOCAINE HCL 2% PF INJ 5 ML VIAL 1 ML INFILTRATE (10:02)
[2024-04-16] MEDS: LIDOCAINE HCL 1% PF INJ 5 ML VIAL INFILTRATE (10:04)
[2024-04-16 10:10] VITALS: BP 122/54; PULSE 70; RESP 18; O2SAT 99
[2024-04-16 10:34] VITALS: BP 117/54; PULSE 67
== END 2024-04-16 10:38 | disposition home or self-care (01) ==
PROVIDERS: PCP Nurse Practitioner; Visit Provider Anesthesiology Pain Medicine
PROC: (CPT 64483; principal; 2024-04-16 09:45)
DX: M48.062 Spinal stenosis, lumbar region with neurogenic claudication (principal); M46.1 Sacroiliitis, not elsewhere classified; I10 Essential (primary) hypertension; E11.9 Type 2 diabetes mellitus without complications; G89.29 Other chronic pain; M54.50 Low back pain, unspecified; J45.909 Unspecified asthma, uncomplicated; K21.9 Gastro-esophageal reflux disease without esophagitis; E06.3 Autoimmune thyroiditis; K76.9 Liver disease, unspecified; G47.33 Obstructive sleep apnea (adult) (pediatric); M35.00 Sjogren syndrome, unspecified; Z99.89 Dependence on other enabling machines and devices; Z98.890 Other specified postprocedural states; Z98.51 Tubal ligation status; Z90.49 Acquired absence of other specified parts of digestive tract; Z87.891 Personal history of nicotine dependence; Z80.8 Family history of malignant neoplasm of other organs or systems; Z82.49 Family history of ischemic heart disease and other diseases of the circulatory system
CPT/HCPCS: 64483; 99199; J2003; Q9965

== ENCOUNTER 2024-05-10 11:00 | Outpatient (CLI) | payer OTHER, SELFPAY ==
[2024-05-10 11:16] LABS: Basophils Absolute Auto 0.1 K/mm3 (0.0-0.1); Basophils Percent Auto 1.3 % (0.2-1.2); Eosinophils Absolute Auto 0.3 K/mm3 (0-0.3); Eosinophils Percent Auto 4.4 % (0-4.4); Hematocrit 42.5 % (37.0-47.0); Immature Granulocyte Absolute 0.01 K/mm3 (0.00-0.031); Immature Granulocyte Percent A 0.1 % (0-0.5); Lymphocytes Absolute Auto 1.61 K/mm3 (0.9-3.2); Lymphocytes Percent Auto 23.9 % (18.3-44.2); Mean Corpuscular HGB Conc 30.6 g/dl (32-36); Mean Corpuscular Hemoglobin 29.3 pg (26-34); Mean Corpuscular Volume 95.9 fl (80-100); Mean Platelet Volume 9.2 fl (7.4-10.4); Monocytes Absolute Auto 0.5 K/mm3 (0.1-0.6); Monocytes Percent Auto 7.7 % (2.6-8.5); Neutrophils Absolute Auto 4.2 K/mm3 (1.3-6.7); Neutrophils Percent Auto 62.6 % (45.5-73.1); Platelet Count Result 244 k/mm3 (150-375); Red Blood Count 4.43 M/mm3 (4.2-5.4); Red Cell Distribution Width 13.9 % (11.5-14.5); White Blood Count 6.8 K/mm3 (4.5-10.0)
[2024-05-10 11:34] LABS: Alanine Aminotransferase 19 U/L (6-35); Albumin Level 4.3 g/dL (3.5-5.1); Alkaline Phosphatase 64 U/L (38-126); Anion Gap 6 mmol/L (4-12); Aspartate Amino Transferase 26 U/L (14-36); Bilirubin,Total 0.4 mg/dL (0.2-1.3); Blood Urea Nitrogen 15 mg/dL (7-17); CRP 0.8 mg/dL (<1.0); Calcium 9.5 mg/dL (8.4-10.2); Carbon Dioxide 32 mmol/L (22-30); Chloride 100 mmol/L (98-107); Estimated Glomerular Filt Rate > 60; Glucose 113 mg/dL (65-110); Potassium 4.6 mmol/L (3.4-5.0); Sodium 138 mmol/L (137-145)
[2024-05-10 11:57] LABS: Erythrocyte Sedimentation Rate 26 mm/hr (0-20)
== END 2024-05-10 11:01 | disposition home or self-care (01) ==
LOC: ANHLAB 11:03
PROVIDERS: PCP Nurse Practitioner; Visit Provider Nurse Practitioner Family
DX: M35.00 Sjogren syndrome, unspecified (principal); Z79.899 Other long term (current) drug therapy
CPT/HCPCS: 36415; 80053; 85025; 85652; 86140

== ENCOUNTER 2024-06-12 12:23 | Outpatient (CLI) | payer OTHER, SELFPAY ==
--- NOTE | ~2024-06-12 | XR_ITS ---
AP and lateral views of the right tibia/fibula Clinical History: Pain Findings: No acute fracture or dislocation is seen. Tibial intramedullary moisés present with healed fra cture of the distal third of the tibial shaft. Chronic, healed fracture deformity of the distal third fibular shaft also present.. Joint spaces are preserved without significant erosive or degenerative change. Soft tissues are unremarkable. Impression: No acute abnormality. Healed fractures of the tibia and fibula, as above, with tibial intramedullary moisés present. Reviewed, dictated and finalized at location M. ESIS SPECIALIST Impression: No acute abnormality. Healed fractures of the tibia and fibula, as above, with tibial intramedullary moisés present.
== END 2024-06-12 12:24 | disposition home or self-care (01) ==
PROVIDERS: PCP Internal Medicine; Visit Provider Internal Medicine
DX: S82.391D Other fracture of lower end of right tibia, subsequent encounter for closed fracture with routine healing (principal); S82.831D Other fracture of upper and lower end of right fibula, subsequent encounter for closed fracture with routine healing; Z96.698 Presence of other orthopedic joint implants
CPT/HCPCS: 73590

== ENCOUNTER 2024-08-10 10:43 | Outpatient (CLI) | payer OTHER, SELFPAY ==
--- OUTSIDE RECORDS SUMMARY | 2024-08-10 10:53 | XMS_ITS | Referral Summary ---
Author Organization [facility] Address [address] [place] [address] Care Team Providers Care Extrusion Former Name Role Phone Danyel Leon MD Unavailable [phone] Danyel Leon MD Primary Care Provider [phone] Allergies Active Allergy Reactions Criticality Noted Date Comments Codeine Itching Low 01/07/2016 Medications FeroSuL 325 mg (65 mg iron) tablet Take 1 tablet by mouth daily 02/15/2022 Active gabapentin (NEURONTIN) 300 mg capsule Take 300 mg by mouth 3 (three) times a day 02/14/2022 Active levothyroxine (SYNTHROID) 100 mcg tablet Take 100 mcg by mouth daily 03/04/2022 Active lisinopriL (PRINIVIL,ZESTRI L) 20 mg tablet Take 20 mg by mouth daily 01/23/2022 Active meloxicam (MOBIC) 15 mg tablet TAKE 1 TABLET BY MOUTH EVERY DAY FOR PAIN. DO NOT TAKE WITH OTHER NSAIDS 02/15/2022 Active metFORMIN (GLUCOPHAGE) 1,000 mg tablet Take 1,000 mg by mouth 2 (two) times a day 02/05/2022 Active omeprazole (PriLOSEC) 40 mg capsule Take 40 mg by mouth daily 03/04/2022 Active tolterodine LA (DETROL LA) 2 mg 24 hr capsule Take 2 mg by mouth daily 02/23/2022 Active ibuprofen (ADVIL,MOTRIN) 800 mg tablet Take 800 mg by mouth every 6 (six) hours as needed for pain Active Active Problems Problem Noted Date Diagnosed Date Varicose veins of bilateral lower extremities wi th pain 12/27/2017 Immunizations Name Administration Dates Next Due Influenza, Quadrivalent, Marni l Culture-based MDCK, Preservative Free, Antibiotic Free, Intramuscular 03/27/2020 Influenza, Quadrivalent, Spl it, Preservative Free, Intramuscular 06/17/2021 Influenza, Trivalent, IM (MDV) 06/06/2013 Influenza, Trivalent, Preservative Free, Intramu scular 07/14/2012 Moderna SARS-CoV-2 Monovalent Vaccination (12+ Y RS) 08/05/2020 Social History Tobacco Use Types Packs/Day Years Used Date Smoking Tobacco: Former Cigarettes Tobacco Cessation:Counseling Given: Not Answered Personal Safety Answer Date Recorded Getting School Help Needed Not on file 09/09 Comments Unknown Sex and Gender Information Value Date Recorded Sex Assigned at Not on file Legal 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 Gender Identity Not on file Sexual Orientation Not on file Last Filed Vital Signs Vital Sign Reading Time Taken Comments Blood Pressure 138/85 03/19/2022 1:20 PM CDT Pulse 63 03/19/2022 1:20 PM CDT Temperature 36.8 C (98.2 F) 03/19/2022 1:20 PM CDT Respiratory Rate 16 03/19/2022 1:20 PM CDT Oxygen Saturation 96% 03/19/2022 1:20 PM CDT Inhaled Oxygen Concentration - - Weight 153 kg (337 lb 4.8 oz) 03/19/2022 1:20 PM CDT Height 161.6 cm (5' 3.62 ) 03/19/2022 1:20 PM CD T Body Mass Index 58.59 03/19/2022 1:20 PM CDT Plan of Treatment Not on file Insurance AETNA [facility] PPO Care Teams Extrusion Former Relationship Specialty Start Date End Date Danyel Leon MD [address] [place] [address] PCP - General Obstetrics and Gynecology 03/19/22 Danyel Leon MD [address] [place] [address] Referring Physician Obstetrics and Gynecology 02/24/22
--- OUTSIDE RECORDS SUMMARY | 2024-08-10 10:53 | XMS_ITS | Clinical Summary ---
Author Organization [facility] Address [address] [place] [address] Care Team Providers Care Design And Sales Consultant Name Role Phone Danyel Leon MD Unavailable [phone] Danyel Leon MD Primary Care Provider [phone] Allergies Active Allergy Reactions Criticality Noted Date [...] SARS-CoV-2 Monovalent Vaccination (12+ Y RS) 08/05/2020 Surgical History Surgery Date Site/Laterality Comments SECTION 06/27/1987 - 06/26/1988 SECTION 06/27/1990 - 06/26/1991 SEPTOPLASTY 06/27/2009 - 06/26/2010 CHOLECYSTECTOMY 06/27/2012 - 06/26/2013 LUNG SURGERY 06/27/1991 - 06/26/1992 TUBAL LIGATION 06/27/1990 - 06/26/1991 PARTIAL HYSTERECTOMY 06/27/2020 - 06/26/2021 Medical History Medical History Date Comments Hypertension Diabetes (HCC) GERD (gastroesophageal reflux disease) Liver problem History of underactive thyroid Arthritis Obstructive sleep apnea Family History Medical History Relation Name Comments Hypertension Brother 1 Hypertension Brother 2 No Known Problems Child 1 No Known Problems Child 2 Diabetes Father Heart failure Father Kidney cancer Father Heart disease Mother Spinal stenosis Mother Cirrhosis Sister 1 non-alcoholic Diabetes Sister 1 Hypertension Sister 1 Kidney failure Sister 1 Liver disease Sister 1 Atrial fibrillation Sister 2 Heart disease Sister 2 Relation Name Status Comments Brother 1 Alive Brother 2 Alive Child 1 Alive Child 2 Alive Father Mother Sister 1 Alive Sister 2 Alive Social History Tobacco Use Types Packs/Day Years Used Date Smoking Tobacco: Former Cigarettes Tobacco Cessation:Counseling Given: Not Answered Personal Safety Answer Date Recorded Getting School Help Needed Not on file 09/09 Comments Unknown Sex and Gender Information Value Date Recorded Sex Assigned at Not on file 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 Gender Identity Not on file Sexual Orientation Not on file Obstetrics History Para Term AB IAB SAB Ectopic Multiple Livin g Live Births 3 2 2 1 1 2 2 Date Outcome GA Total Labor Labor/2nd/3rd Weight Sex Type Anes PTL Tish A1 A5 Name Clin Term Term SAB Last Filed Vital Signs Vital Sign Reading [...] 03/19/2022 1:20 PM CDT Plan of Treatment Health Maintenance Due Date Last Done Comments Breast Cancer Screening-Mammogram 1960 Cervical Cancer Screening 1960 Colon Cancer Screening-Colonoscopy 1960 Depression Screening 1960 Hepatitis C Screening 1960 DTaP/Tdap/Td Vaccine (1 - Tdap) 1971 Hepatitis B Screening 1978 Regular Well Visit/Exam 18-64 1978 Zoster Vaccine (1 of 2) 2010 Covid-19 Vaccine ( season) 2024 07/13/2021, 09/02/2020, 08/05/2020, Additional history exists Influenza Vaccine (#1) 2024 , 03/27/2020, 06/06/2013, Additional history exists Pneumococcal vaccine <65 Aged Out No longer eligible based on patient's age to complete this topic Insurance AETNA [facility] PPO Care Teams Design And Sales Consultant Relationship Specialty Start Date End Date Danyel Leon MD [address] [address] PCP - General Obstetrics and Gynecology 03/19/22 Danyel Leon MD [address] [facility] [address] [place] [address] Referring Physician Obstetrics and Gynecology 02/24/22
--- OUTSIDE RECORDS SUMMARY | 2024-08-10 10:53 | XMS_ITS | Clinical Summary ---
Author Organization [facility] Address [address] [place] [address] Phone Care Team Providers Care Carpet Installer Name Role Phone Ruben Tilley MD Primary Care Provider [phone] Tresa Conklin APRN, GENERAL INTERNAL MEDICINE DOCTOR Unavailable [phone] Jamal Dillon DO Unavailable [phone] Allergies Active Allergy Reactions Criticality Noted Date Comments Codeine Itching 01/07/2016 Medications metFORMIN (GLUCOPHAGE) 1000 MG Tablet Take 1,000 mg by mouth 2 times daily (with meals). Active omeprazole (PRILOSEC) 20 MG CAPSULE DELAYED RELEASE Take 20 mg by mouth daily. Active levothyroxine (SYNTHROID) 100 MCG Tablet Take 100 mcg by mouth daily. Active HYDROcodone-acet aminophen (NORCO) 5-325 MG Tablet Take 1 Tab by mouth every 4 hours as needed for Pain. Active ondansetron (ZOFRAN ODT) 4 MG TABLET DISPERSIBLE Take 1 Tab by mouth every 8 hours as needed for Nausea. 30 Tab 3 6 Active polyethylene glycol (MIRALAX) Powder Mix the entire bottle with 64 oz of a clear liquid. Use as directed by the office for colonoscopy prep. 255 g 0 6 Active Immunizations Immunization Administration Dates Next Due Covid-19, Mrna, Lnp-s, PF, 1 00 mcg/0.5 mL Dose (Moderna) 09/02/2020,08/05/2020 Family History Medical History Relation Name Comments Kidney Cancer Father Heart Disease Mother Relation Name Status Comments Father Mother Social History Tobacco Use Types Packs/Day Years Used Date Smoking Tobacco: Former Cigarettes 1 20 Alcohol Use Standard Drinks/Week Comments Yes 0 (1 standard drink = 0.6 oz pur e alcohol) socially Comments No Sex and Gender Information Value Date Recorded Sex Assigned at Not on file Legal Sex Female 8:22 PM CDT Gender Identity Not on file Sexual Orientation Not on file Last Filed Vital Signs Vital Sign Reading Time Taken Comments Blood Pressure 126/84 01/07/2016 1:31 PM CDT Pulse 64 01/07/2016 1:31 PM CDT Temperature 35.9 C (96.7 F) 01/07/2016 1:31 PM CDT Respiratory Rate 16 01/07/2016 1:31 PM CDT Oxygen Saturation 97% 01/07/2016 1:31 PM CDT Inhaled Oxygen Concentration - - Weight 150.1 kg (331 lb) 01/07/2016 1:31 PM CDT Height 160 cm (5' 3 ) 01/07/2016 1:31 PM CDT Body Mass Index 58.63 01/07/2016 1:31 PM CDT Plan of Treatment Health Maintenance Due Date Last Done Comments Hepatitis C Virus (HCV) Screening 1960 TdaP Immunization 1960 Pap Smear 1981 Cervical Cancer Screening (CCS) 1990 HPV/Cotest 1990 Cologuard 2010 Immunochemical Fecal Occult Blood 2010 Mammogram 2010 Pneumococcal Immunization (5 0+ years) (1 of 1 - PCV) 2010 Zoster Immunization (1 of 2) 2010 Influenza Immunization (#1) 2024 SARS-COV-2 Immunization (2023- season) 2024 09/02/2020, 08/05/2020 Colonoscopy 03/29/2026 03/29/2016 Colorectal Cancer Screening 03/29/2026 Respiratory Syncytial Virus (RSV) Immunization (Adult) (1 - 1-dose 75+ series) 2035 03/29/2016 Hepatitis B Immunization Aged Out No longer eligible based on patient's age to complete this topic Meningococcal Immunization (ACWY) Aged Out No longer eligible b ased on patient's age to complete this topic Pneumococcal Immunization Combined Aged Out No longer eligible b ased on patient's age to complete this topic Rotavirus Immunization Aged Out No lo nger eligible based on patient's age to complete this topic Procedures Procedure Name Priority Date/Time Associated Diagnosis Comments COLONOSCOPY Routine 03/29/2016 from Last 3 Months or Most Recently Relevant to Health Maintenance Results * COLONOSCOPY (03/29/2016) Ruben Tilley MD PROCEDURE/MINOR SURGICAL ORDER DEISY Final Result from Last 3 Months or Most Recently Relevant to Health Maintenance Care Teams Carpet Installer Relationship Specialty Start Date End Date Ruben Tilley MD [address] [place] [address] PCP - General Internal Medicine 01/07/16 Tresa Conklin, PRIMER BOXER, GENERAL INTERNAL MEDICINE DOCTOR [address] [place] [address] Nurse Practitioner Advanced Practice Nurse 01/07/16 Jamal Dillon DO [address] [place] [address] Consulting Physician Gastroenterology 03/11/16
[2024-08-10 11:25] LABS: Hemoglobin A1C 5.7 % (<5.7)
[2024-08-10 11:27] LABS: Basophils Absolute Auto 0.1 K/mm3 (0.0-0.1); Basophils Percent Auto 1.5 % (0.2-1.2); Eosinophils Absolute Auto 0.3 K/mm3 (0-0.3); Eosinophils Percent Auto 4.6 % (0-4.4); Hemoglobin 13.5 g/dL (12.0-15.0); Immature Granulocyte Absolute 0.01 K/mm3 (0.00-0.031); Immature Granulocyte Percent A 0.2 % (0-0.5); Lymphocytes Absolute Auto 1.43 K/mm3 (0.9-3.2); Lymphocytes Percent Auto 23.6 % (18.3-44.2); Mean Corpuscular Hemoglobin 29.1 pg (26-34); Mean Platelet Volume 9.6 fl (7.4-10.4); Monocytes Absolute Auto 0.4 K/mm3 (0.1-0.6); Monocytes Percent Auto 7.1 % (2.6-8.5); Neutrophils Absolute Auto 3.8 K/mm3 (1.3-6.7); Platelet Count Result 263 k/mm3 (150-375); Red Blood Count 4.64 M/mm3 (4.2-5.4); Red Cell Distribution Width 13.7 % (11.5-14.5); White Blood Count 6.1 K/mm3 (4.5-10.0)
[2024-08-10 11:40] LABS: Complement C3 171 mg/dL (88-165)
[2024-08-10 11:41] LABS: Alanine Aminotransferase 18 U/L (6-35); Albumin Level 4.4 g/dL (3.5-5.1); Alkaline Phosphatase 70 U/L (38-126); Aspartate Amino Transferase 25 U/L (14-36); Blood Urea Nitrogen 17 mg/dL (7-17); CRP 0.8 mg/dL (<1.0); Calcium 10.1 mg/dL (8.4-10.2); Carbon Dioxide 31 mmol/L (22-30); Chloride 100 mmol/L (98-107); Cholesterol 209 mg/dL (0-200); Estimated Glomerular Filt Rate > 60; Glucose 113 mg/dL (65-110)
[2024-08-10 11:42] LABS: Anion Gap 9 mmol/L (4-12); Bilirubin,Total 0.6 mg/dL (0.2-1.3); Potassium 4.8 mmol/L (3.4-5.0); Sodium 140 mmol/L (137-145); Triglycerides 91 mg/dL (<150)
[2024-08-10 11:45] LABS: LDL Cholesterol Direct 94 mg/dL
[2024-08-10 11:49] LABS: HDL Direct 95 mg/dL
[2024-08-10 11:57] LABS: MALB Creatinine Ratio 5.8 mg/g (0-30); Microalbumin Urine Random 11.7 mg/L (0-16.7)
[2024-08-10 13:07] LABS: Erythrocyte Sedimentation Rate 23 mm/hr (0-20)
== END 2024-08-10 10:44 | disposition home or self-care (01) ==
PROVIDERS: PCP Internal Medicine; Referring Provider Internal Medicine; Visit Provider Nurse Practitioner
DX: E78.5 Hyperlipidemia, unspecified (principal); E11.9 Type 2 diabetes mellitus without complications; M35.00 Sjogren syndrome, unspecified; Z79.899 Other long term (current) drug therapy
CPT/HCPCS: 36415; 80053; 80061; 82043; 83036; 85025; 85652; 86140; 86160; 86225

== ENCOUNTER 2024-10-02 00:08 | Day surgery (SDC) | payer OTHER, SELFPAY ==
[2024-10-01 12:53] VITALS: BMI 56.8
--- NOTE | 2024-10-01 13:01 | PC.NURSE ---
Report to the Outpatient Waiting Room, entrance under the green pavilion located off [facility], at time _1215_ on date _[phone]_. Planned Procedure Time: _115pm_.? Time changes happen often and if your time is changed the preop area will call you the afternoon before. - You and your visitor will be asked to self-screen and do not enter if you have any COVID symptoms. Please call surgeon if you need to reschedule. - A mask is optional within the hospital at this time. - No smoking, or chewing tobacco (or any form of nicotine). Ok for breakfast. Nothing to eat or drink after 1115am. No chewing gum, candy or mints. Take only the following medications with a SIP of water on the morning of surgery: __Medications OK DO NOT STOP ANY OF YOUR OTHER PRESCRIPTION MEDICATIONS PRIOR TO SURGERY EXCEPT THE FOLLOWING Hold all vitamins and supplements for 3 days per anesthesiologist. Medications to discontinue per physician ___Patient stopped Ibuprofen [id number] Date to take last dose Please no make-up, nail guamanian, hairspray, perfume, deodorant, or body powder the day of surgery.? No jewelry (including any body piercings) or valuables the day of surgery, leave them at home.? Please take a shower or bath the night before, or the morning of, surgery with an antibacterial soap.? Wear comfortable, loose fitting clothing.? - Jewelry must be removed prior to entering the operating room.? Rings and piercings that are not removed may be cut off. - The hospital will not accept responsibility for valuables.? - Please leave all valuables, including medications, at home the day of surgery. If you are going home after surgery, a licensed bicycle taxi driver must drive you home.? - NO public transportation without another adult if you receive anesthesia. - We recommend that an adult stay with you for 24 hours following discharge. - We also recommend that you do not drive, make important decision, drink alcoholic beverages, or take any drugs that were not prescribed by your health care provider for at least 24 hours after your discharge time. Follow any additional instructions given to you from your surgeon. Telephone instructions given to __Angel___and asked if any additional questions and then verbalized understanding. Patient advised to call surgeon office or pre surgery nurse liaison [phone] if any additional questions.
--- NOTE | ~2024-10-02 | XR_ITS ---
XR fluoroscopy no charge Indication: Lumbar steroid injection TECHNIQUE: Fluoroscopy used during lumbar steroid injection performed by [Xu Foster MD] o n 10/02/2024. 1 minute 5 seconds of fluoroscopy with 162 fluoroscopic images captured. FINDINGS: Correlate with procedure note. IMPRESSION: Fluoroscopy used during lumbar steroid injection. Reviewed, dictated and finalized at location A.
--- OUTSIDE RECORDS SUMMARY | 2024-10-02 00:10 | XMS_ITS | Clinical Summary ---
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
--- OUTSIDE RECORDS SUMMARY | 2024-10-02 00:11 | XMS_ITS | Clinical Summary ---
Author Organization [facility] Address [address] [place] [address] Phone Care Team Providers Care Property Valuer Name Role Phone Ruben Tilley MD Primary Care Provider [phone] Tresa Conklin APRN, COAT OPERATOR Unavailable [phone] Jamal Dillon DO Unavailable [phone] Allergies Active Allergy Reactions Criticality Noted [...] Recently Relevant to Health Maintenance Care Teams Property Valuer Relationship Specialty Start Date End Date Ruben Tilley MD [address] [place] [address] PCP - General Internal Medicine 01/07/16 Tresa Conklin, BEFORE AND AFTER SCHOOL DAYCARE WORKER, COAT OPERATOR [address] [place] [address] Nurse Practitioner Advanced Practice Nurse 01/07/16 Jamal Dillon DO [address] [place] [address] Consulting Physician Gastroenterology 03/11/16
--- OUTSIDE RECORDS SUMMARY | 2024-10-02 00:11 | XMS_ITS | Referral Summary ---
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
[2024-10-02 12:55] VITALS: BP 130/55; PULSE 69; RESP 18; TEMP 36.1; O2SAT 100
--- NOTE | 2024-10-02 13:20 | WPDHPUPDATE1 ---
History and Physical Update Update Date/Time: 10/02/24 13:20 History and Physical has been reviewed, including an updated exam of the patient. There are NO changes in the patient's condition. Risks, benefits, and alternatives have been discussed and questions answered. Patient agrees to proceed with procedure.
--- NOTE | 2024-10-02 13:21 | P.OP_ITS ---
Procedure Note - Detailed Date of Procedure 10/02/24 Pre-op Diagnosis Spinal Stenosis Post-op Diagnosis Same Procedure Performed Bilateral Lumbar Transforaminal Epidural Steroid Injection under Fluoroscopic Guidance and with Contrast Control at L4-5. Surgeon Xu Foster MD Anesthesia Local Description of Procedure INFORMED CONSENT: Risks, benefits and alternatives to the procedure were discussed in detail with the patient who expressed explicit understanding and consent to proceed. Patient was informed verbally and in written form regarding the risks associated with the procedure including the low risk of serious infection, bleeding/bruising, allergic reaction, nerve or organ injury, pa ralysis, procedural site pain or discomfort, worsening pain and/or mobility, failure to treat and/or disfigurement. The patient expressed explicit understanding and consent to proceed. All materials required for the procedure were available prior to procedure start. Site and side was marked prior to procedure and confirmed in the presence of the patient. PROCEDURE IN DETAIL: The patient was brought to the procedural suite and placed in the prone position. Patient was made comfortable with use of pillows under the head/chest, hips and ankles. Skin overlying the injection site was prepared broadly with ChloraPrep applicator and draped in a sterile manner. Aseptic technique was employed throughout. The endplates of the vertebral body at the site of interest were aligned in the AP view. Ipsilateral oblique angulation was utilized to better visualize the neuroforamen of interest. Local anesthesia was established by infiltration with approximately 5 mL of 0.5% PF lidocaine via a 1-1/2 inch 27-gauge needle. A 22-gauge 5.0 inch Jaya (pencil point) spinal needle was advanced until the needle approached the 6 o'clock position on the pedicle just superior to the exiting nerve root. on the right at L4-5. Lateral view was utilized to confirm appropriate position of the needle tip within the superior and posterior portion of the respective foramen. In an AP view, 1 mL of Omnipaque 300 contrast medium was injected after negative aspiration for CSF, blood or other bodily fluid, showing appropriate neurogram without evidence of intravascular or intrathecal spread of contrast. Digital subtraction imaging was used with an additional 1ml of the same contrast medium to confirm absence of intravascular contrast spread. A 1mL solution containing 3 mg of betamethasone was injected after negative repeat aspiration. Appropriate spread of the injectate was confirmed with washout of previously injected contrast. No parasthesias were elicited. Needle was removed completely intact without difficulty. The same exact procedure was repeated for all remaining levels on the contralateral side, left L4-5 neuroforamen, modified as necessary to accommodate for the new target location with identical findings and results and no evidence of complication. Images were saved and documented in the patient chart. Patient's skin was cleaned and sterile bandage applied. The patient tolerated the procedure well. The patient was transported to the recovery area in stable condition where they were observed for an appropriate amount of time prior to discharge, without evid ence of complication. The patient was instructed to avoid excessive activity for the next 48 hours, including climbing and frequent use of stairs. Showers only for 48 hours. They were instructed not to drive or operate heavy machinery for 24 hours. They are to monitor for severe headaches, fevers, chills, night sweats, erythema/swelling at the site or any other signs of infection, bleeding/bruising, bowel or bladder changes as well as new pain, weakness or numbness in the upper or lower extremity. Should they notice these changes, they are instructed to call our office immediately or report directly to the nearest Emergency Department if no answer or if after posted office hours. COMPLICATIONS: None COMMENTS: None CONTRAST WASTED: 26 mL Omnipaque 300. STEROID WASTED: 0 mg of betamethasone. Complications No immediate complications Condition Stable Disposition Same day [facility] Billing Surgery - Charge Forward: Surgery Billing
[2024-10-02 13:38] VITALS: BP 162/70; PULSE 67; RESP 18; O2SAT 97
[2024-10-02] MEDS: LIDOCAINE 2% PF LOCAL INJ 5 ML VIAL INFILTRATE (13:41)
[2024-10-02] MEDS: BETAMETHASONE SODIUM PHOSPHATE PF INJ 6 MG/ML VIAL INFILTRATE (13:41)
[2024-10-02 13:42] VITALS: BP 152/75; PULSE 64; RESP 18; O2SAT 98
[2024-10-02 13:48] VITALS: BP 150/72; PULSE 64; RESP 16; O2SAT 100
== END 2024-10-02 14:14 | disposition home or self-care (01) ==
PROVIDERS: PCP Internal Medicine; Visit Provider Anesthesiology Pain Medicine
PROC: (CPT 62323; principal; 2024-10-02 14:00)
DX: M48.061 Spinal stenosis, lumbar region without neurogenic claudication (principal); R26.2 Difficulty in walking, not elsewhere classified; M54.50 Low back pain, unspecified; M79.604 Pain in right leg; M79.605 Pain in left leg; M35.00 Sjogren syndrome, unspecified
CPT/HCPCS: 62323; 99199; J2003; Q9965

== ENCOUNTER 2024-10-29 10:17 | Outpatient (CLI) | payer OTHER, SELFPAY ==
[2024-10-29 10:53] LABS: Basophils Absolute Auto 0.1 K/mm3 (0.0-0.1); Eosinophils Absolute Auto 0.4 K/mm3 (0-0.3); Eosinophils Percent Auto 4.6 % (0-4.4); Hematocrit 41.8 % (37.0-47.0); Hemoglobin 12.3 g/dL (12.0-15.0); Immature Granulocyte Absolute 0.03 K/mm3 (0.00-0.031); Immature Granulocyte Percent A 0.4 % (0-0.5); Lymphocytes Absolute Auto 1.69 K/mm3 (0.9-3.2); Lymphocytes Percent Auto 21.8 % (18.3-44.2); Mean Corpuscular HGB Conc 29.4 g/dl (32-36); Mean Corpuscular Hemoglobin 28.6 pg (26-34); Mean Corpuscular Volume 97.2 fl (80-100); Mean Platelet Volume 9.4 fl (7.4-10.4); Monocytes Absolute Auto 0.5 K/mm3 (0.1-0.6); Monocytes Percent Auto 6.6 % (2.6-8.5); Neutrophils Absolute Auto 5.1 K/mm3 (1.3-6.7); Neutrophils Percent Auto 65.6 % (45.5-73.1); Platelet Count Result 216 k/mm3 (150-375); White Blood Count 7.8 K/mm3 (4.5-10.0)
--- OUTSIDE RECORDS SUMMARY | 2024-10-29 11:10 | XMS_ITS | Referral Summary ---
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
--- OUTSIDE RECORDS SUMMARY | 2024-10-29 11:10 | XMS_ITS | Clinical Summary ---
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
--- OUTSIDE RECORDS SUMMARY | 2024-10-29 11:10 | XMS_ITS | Clinical Summary ---
Author Organization [facility] Address [address] [place] [address] Phone Care Team Providers Care Directory Carrier Name Role Phone Ruben Tilley MD Primary Care Provider [phone] Tresa Conklin APRN, PLUMBING INSPECTOR Unavailable [phone] Jamal Dillon DO Unavailable [phone] Allergies Active Allergy Reactions Criticality Noted [...] Procedure Name Priority Date/Time Associated Diagnosis Comments HM COLONOSCOPY Routine 03/29/2016 from Last 3 Months or Most Recently Relevant to Health Maintenance Results * COLONOSCOPY (03/29/2016) Ruben Tilley MD PROCEDURE/MINOR SURGICAL ORDER DEISY Final Result from Last 3 Months or Most Recently Relevant to Health Maintenance Care Teams Directory Carrier Relationship Specialty Start Date End Date Ruben Tilley MD PCP - General Internal Medicine 01/07/16 Tresa Conklin, GARDENING INSTRUCTOR, PLUMBING INSPECTOR Nurse Practitioner Advanced Practice Nurse 01/07/16 Jamal Dillon DO Consulting Physician Gastroenterology 03/11/16
[2024-10-29 11:21] LABS: Alanine Aminotransferase 16 U/L (6-35); Alkaline Phosphatase 69 U/L (38-126); Anion Gap 4 mmol/L (4-12); Aspartate Amino Transferase 19 U/L (14-36); Bilirubin,Total 0.5 mg/dL (0.2-1.3); Blood Urea Nitrogen 18 mg/dL (7-17); Calcium 9.4 mg/dL (8.4-10.2); Carbon Dioxide 32 mmol/L (22-30); Chloride 103 mmol/L (98-107); Erythrocyte Sedimentation Rate 19 mm/hr (0-20); Estimated Glomerular Filt Rate 55; Glucose 104 mg/dL (65-110); Potassium 4.2 mmol/L (3.4-5.0); Sodium 139 mmol/L (137-145)
== END 2024-10-29 10:18 | disposition home or self-care (01) ==
LOC: ANHLAB 10:19
PROVIDERS: PCP Internal Medicine; Visit Provider Nurse Practitioner Family
DX: M35.00 Sjogren syndrome, unspecified (principal); Z79.899 Other long term (current) drug therapy
CPT/HCPCS: 36415; 80053; 85025; 85652; 86140

== ENCOUNTER 2025-01-14 06:02 | Day surgery (SDC) | payer OTHER, SELFPAY ==
[2025-01-04 15:00] VITALS: BMI 56.6
--- NOTE | ~2025-01-14 | XR_ITS ---
XR fluoroscopy no charge Indication: Bilateral L4-5 transforaminal epidural steroid injection TECHNIQUE: Fluoroscopy used during Bilateral L4-5 transforaminal epidural steroid injection performe d by [Xu Foster MD] on 01/14/2025. 72 seconds of fluoroscopy with 5 fluoroscopic images cap tured. FINDINGS: Correlate with procedure note. IMPRESSION: Fluoroscopy used during Bilateral L4-5 transforaminal epidural steroid injection. Reviewed, dictated and finalized at location A. IMPRESSION: Fluoroscopy used during Bilateral L4-5 transforaminal epidural ster oid injection.
--- OUTSIDE RECORDS SUMMARY | 2025-01-14 06:45 | XMS_ITS | Referral Summary ---
Author Organization 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
--- OUTSIDE RECORDS SUMMARY | 2025-01-14 06:45 | XMS_ITS | Clinical Summary ---
Author Organization [facility] Address [address] [place] [address] Phone Care Team Providers Care Punch Press Operator Helper Name Role Phone Ruben Tilley MD Primary Care Provider [phone] Tresa Conklin APRN, FITNESS COORDINATOR Unavailable [phone] Jamal Dillon DO Unavailable [phone] Allergies Active Allergy Reactions Criticality Noted Date [...] 1:31 PM CDT Height 160 cm (5' 3) 01/07/2016 1:31 PM CDT Body Mass Index [...] (Adult) (1 - 1-dose 75+ series) 2035 Hepatitis B Immunization Aged Out No longer [...] Recently Relevant to Health Maintenance Results * HM COLONOSCOPY (03/29/2016) Ruben Tilley MD PROCEDURE/MINOR SURGICAL ORDER DEISY Final Result from Last 3 Months or Most Recently Relevant to Health Maintenance Care Teams Punch Press Operator Helper Relationship Specialty Start Date End Date Ruben Tilley MD PCP - General Internal Medicine 01/07/16 Tresa Conklin, FINANCIAL FOUNDATIONS REPRESENTATIVE, FITNESS COORDINATOR Nurse Practitioner Advanced Practice Nurse 01/07/16 Jamal Dillon DO Consulting Physician Gastroenterology 03/11/16
--- OUTSIDE RECORDS SUMMARY | 2025-01-14 06:45 | XMS_ITS | Clinical Summary ---
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 Gender Identity Not on file Sexual Orientation [...] 09/02/2020, 08/05/2020, Additional history exists Influenza Vaccine (Season Ended) 2025 06/17/2021, 03/27/2020, 06/06/2013, Additional history exists Pneumococcal vaccine <65 Aged Out No longer eligible based on patient's age to complete this topic Insurance AETNA [facility] PPO Care Teams Warp Tier Relationship Specialty Start Date End Date Danyel Leon MD [address] [address] PCP - General Obstetrics and Gynecology 03/19/22 Danyel Leon MD [address] [facility] [address] [place] [address] Referring Physician Obstetrics and Gynecology 02/24/22
[2025-01-14 07:05] VITALS: BP 145/71; PULSE 80; RESP 16; TEMP 36; O2SAT 98
--- NOTE | 2025-01-14 07:05 | WPDHPUPDATE1 ---
History and Physical Update Update Date/Time: 01/14/25 07:05 History and Physical has been reviewed, including an updated exam of the patient. There are NO changes in the patient's condition. Risks, benefits, and alternatives have been discussed and questions answered. Patient agrees to proceed with procedure.
--- NOTE | 2025-01-14 07:06 | P.OP_ITS ---
Procedure Note - Detailed Date of Procedure 01/14/25 Pre-op Diagnosis Spinal Stenosis with Neurogenic Claudication Post-op Diagnosis Same Procedure Performed [Right] [Lumbar] Transforaminal Epidural Steroid Injection under Fluoroscopic G uidance and with Contrast Control at [L4-5, L5-S1]. Surgeon Xu Foster MD Anesthesia Local Description of Procedure INFORMED CONSENT: Risks, benefits and alternatives to the procedure were discussed in detail with the patient who expressed explicit understanding and consent to proceed. Patient was informed verbally and in written form regarding the risks associated with the procedure including the low risk of serious infection, bleeding/bruising, allergic reaction, nerve or organ injury, paralysis, procedural site pain or discomfort, worsening pain and/or mobility, failure to treat and/or disfigurement. The patient expressed explicit understanding and consent to proceed. All materials required for the procedure were available prior to procedure start. Site and side was marked prior to procedure and confirmed in the presence of the patient. PROCEDURE IN DETAIL: The patient was brought to the procedural suite and placed in the prone position. Patient was made comfortable with use of pillows under the head/chest, hips and ankles. Skin overlying the injection site was prepared broadly with ChloraPrep applicator and draped in a sterile manner. Aseptic technique was employed throughout. The endplates of the vertebral body at the site of interest were aligned in the AP view. Ipsilateral oblique angulation was utilized to better visualize the neuroforamen of interest. Local anesthesia was established by infiltration with approximately 5 mL of 0.5% PF lidocaine via a 1-1/2 inch 27-gauge needle. A 22-gauge 5.0 inch Jaya (pencil point) spinal needle was advanced until the needle approached the 6 o'clock position on the pedicle just superior to the exiting nerve root. on the right at L4-5. Lateral view was utilized to confirm appropriate position of the needle tip within the superior and posterior portion of the respective foramen. In an AP view, 1 mL of Omnipaque 300 contrast medium was injected after negative aspiration for CSF, blood or other bodily fluid, showing appropriate neurogram without evidence of intravascular or intrathecal spread of contrast. Digital subtraction imaging was used with an additional 1ml of the same contrast medium to confirm absence of intravascular contrast spread. A 1mL solution containing 3 mg of betamethasone was injected after negative repeat aspiration. Appropriate spread of the injectate was confirmed with washout of previously injected contrast. No parasthesias were elicited. Needle was removed completely intact without difficulty. The same exact procedure was repeated for all remaining levels on the contralateral side, left L4-5 neuroforamen, modified as necessary to accommodate for the new target location with identical findings and results and no evidence of complication. Images were saved and documented in the patient chart. Patient's skin was c leaned and sterile bandage applied. The patient tolerated the procedure well. The patient was transported to the recovery area in stable condition where they were observed for an appropriate amount of time prior to discharge, without evidence of complication. The patient was instructed to avoid excessive activity for the next 48 hours, including climbing and frequent use of stairs. Showers only for 48 hours. They were instructed not to drive or operate heavy machinery for 24 hours. They are to monitor for severe headaches, fevers, chills, night sweats, erythema/swelling at the site or any other signs of infection, bleeding/bruising, bowel or bladder changes as well as new pain, weakness or numbness in the upper or lower extremity. Should they notice these changes, they are instructed to call our office immediately or report directly to the nearest Emergency Department if no answer or if after posted office hours. COMPLICATIONS: None COMMENTS: None CONTRAST WASTED: 26 mL Omnipaque 300. STEROID WASTED: 0 mg of betamethasone. Complications No immediate complications Condition Stable Disposition Same day [facility] Billing Surgery - Charge Forward: Surgery Billing
--- NOTE | 2025-01-14 07:10 | SUR.PREOP ---
0656 pt arrived late
[2025-01-14 07:29] VITALS: BP 130/70; PULSE 81; O2SAT 96
[2025-01-14 07:37] VITALS: BP 135/68; PULSE 79; O2SAT 96
[2025-01-14 07:42] VITALS: BP 135/66; PULSE 79; O2SAT 96
[2025-01-14] MEDS: LIDOCAINE 1% PF INJ 5 ML VIAL 6 ML INFILTRATE (07:45)
[2025-01-14] MEDS: BETAMETHASONE SODIUM PHOSPHATE PF INJ 6 MG/ML VIAL INFILTRATE (07:47)
[2025-01-14 07:48] VITALS: BP 130/67; PULSE 72; RESP 18; O2SAT 100
== END 2025-01-14 07:58 | disposition home or self-care (01) ==
PROVIDERS: PCP Internal Medicine; Visit Provider Anesthesiology Pain Medicine
PROC: (CPT 64483; principal; 2025-01-14 07:30)
DX: M48.062 Spinal stenosis, lumbar region with neurogenic claudication (principal); M54.17 Radiculopathy, lumbosacral region
CPT/HCPCS: 64483; 64484; 99199

== ENCOUNTER 2025-02-01 09:42 | Outpatient (CLI) | payer OTHER, SELFPAY ==
--- OUTSIDE RECORDS SUMMARY | 2025-02-01 09:53 | XMS_ITS | Clinical Summary ---
Author Organization [facility] Address [address] [place] [address] Phone Care Team Providers Care Is/It Project Manager Name Role Phone Ruben Tilley MD Primary Care Provider [phone] Tresa Conklin APRN, COLOR STRAINER Unavailable [phone] Jmaal Dillon DO Unavailable [phone] Allergies Active Allergy Reactions Criticality Noted [...] Cancer Screening (CCS) 1990 HPV/Cotest 1990 Cologuard 2005 Immunochemical Fecal Occult Blood 2005 Pneumococcal Immunization (5 0+ years) (1 of 1 - PCV) 2010 Zoster Immunization (1 of 2) 2010 SARS-COV-2 Immunization (3 - season) 2024 09/02/2020, 08/05/2020 Influenza Immunization (#1) 2025 Colonoscopy 03/29/2026 03/29/2016 Colorectal Cancer Screening 03/29/2026 Respiratory Syncytial Virus (RSV) Immunization (Adult) (1 - 1-dose 75+ series) 2035 Hepatitis B Immunization Aged Out No longer eligible based on patient's age to complete this topic Human Papillomavirus (HPV) Immunization Aged Out No longer eligible b ased [...] Recently Relevant to Health Maintenance Care Teams Is/It Project Manager Relationship Specialty Start Date End Date Ruben Tilley MD PCP - General Internal Medicine 01/07/16 Tresa Conklin, CONSTRUCTION PROJECT ENGINEER, COLOR STRAINER Nurse Practitioner Advanced Practice Nurse 01/07/16 Jamal Dillon DO Consulting Physician Gastroenterology 03/11/16
--- OUTSIDE RECORDS SUMMARY | 2025-02-01 09:53 | XMS_ITS | Clinical Summary ---
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 Gender Identity Not on file Sexual Orientation [...] 08/05/2020, Additional history exists Influenza Vaccine (#1) 2025 , 03/27/2020, 06/06/2013, Additional history exists Pneumococcal vaccine <65 Aged Out No longer eligible based on patient's age to complete this topic Insurance AETNA [facility] PPO Care Teams User Acceptance Tester Relationship Specialty Start Date End Date Danyel Leon MD [address] [address] PCP - General Obstetrics and Gynecology 03/19/22 Danyel Leon MD [address] [facility] [address] [place] [address] Referring Physician Obstetrics and Gynecology 02/24/22
[2025-02-01 10:23] LABS: Hematocrit 41.5 % (37.0-47.0); Hemoglobin 12.6 g/dL (12.0-15.0); Immature Granulocyte Percent A 0.3 % (0-0.5); Lymphocytes Absolute Auto 1.33 K/mm3 (0.9-3.2); Mean Corpuscular HGB Conc 30.4 g/dl (32-36); Mean Corpuscular Hemoglobin 29.2 pg (26-34); Mean Corpuscular Volume 96.3 fl (80-100); Nucleated Red Blood Cells Absolute Auto 0.000 K/mm3 (0.0-0.012); Nucleated Red Blood Cells Perc 0.0 % (0.0-0.2); Platelet Count Result 283 k/mm3 (150-375); Red Blood Count 4.31 M/mm3 (4.2-5.4); White Blood Count 5.9 K/mm3 (4.5-10.0)
[2025-02-01 10:42] LABS: Cholesterol 192 mg/dL (0-200); HDL Direct 79 mg/dL; Triglycerides 84 mg/dL (<150)
[2025-02-01 10:46] LABS: Alanine Aminotransferase 21 U/L (6-35); Albumin Level 4.2 g/dL (3.5-5.1); Alkaline Phosphatase 65 U/L (38-126); Anion Gap 7 mmol/L (4-12); Aspartate Amino Transferase 29 U/L (14-36); Bilirubin,Total 0.4 mg/dL (0.2-1.3); Blood Urea Nitrogen 18 mg/dL (7-17); CRP 0.7 mg/dL (<1.0); Calcium 10.3 mg/dL (8.4-10.2); Carbon Dioxide 27 mmol/L (22-30); Chloride 103 mmol/L (98-107); Estimated Glomerular Filt Rate 49; Glucose 110 mg/dL (65-110); Potassium 5.3 mmol/L (3.4-5.0); Sodium 137 mmol/L (137-145); Total Protein 7.4 g/dL (6.3-8.2)
[2025-02-01 11:18] LABS: Thyroid Stimulating Hormone 0.548 uIU/mL (0.465-4.680)
[2025-02-01 12:30] LABS: Free T4 Free Thyroxine 1.34 ng/dL (0.78-2.19)
[2025-02-01 12:47] LABS: Hemoglobin A1C 5.9 % (<5.7)
== END 2025-02-01 09:43 | disposition home or self-care (01) ==
PROVIDERS: Nurse Practitioner Family; PCP Internal Medicine; Visit Provider Internal Medicine
DX: E78.5 Hyperlipidemia, unspecified (principal); E11.9 Type 2 diabetes mellitus without complications; E03.9 Hypothyroidism, unspecified; M35.00 Sjogren syndrome, unspecified; Z79.899 Other long term (current) drug therapy
CPT/HCPCS: 36415; 80053; 80061; 83036; 84439; 84443; 85025; 85652; 86140

== ENCOUNTER 2025-04-21 12:40 | Outpatient (CLI) | payer MEDICARE, OTHER, SELFPAY ==
--- NOTE | ~2025-04-21 | MR_ITS ---
EXAMINATION: MR lumbar spine wo con DATE: 04/21/2025 13:20 INDICATION: Spinal stenosis, lumbar region with neurogenic claudication. TECHNIQUE: Magnetic resonance imaging (MRI) of the lumbar spine was performed without intravenous contrast. Sequences included sagittal T2-weighted FSE, sagittal T2-weighted FS FSE, sagittal T1-weighted FSE, and axial T2-weighted FSE. COMPARISON: Lumbar spine MRI 04/21/2015 FINDINGS: There is 14 degrees dextroscoliosis of lumbar spine. There is 6 mm anterolisthesis of L5 on S1. There is mild chronic anterior wedging of T12 vertebral body. There is mildly decreased disc height at L5-S1. The distal spinal cord signal intensity is normal. The conus medullaris is at L1-L2. The following disc levels are specifically discussed: L1-L2: The disc is bulging. There is moderate right and severe left facet joint osteoarthritis. There is mild bilateral neural foraminal stenosis. There is mild central canal stenosis. L2-L3: The disc is bulging and has an annular fissure. There is severe bilateral facet joint osteoarthritis. There is mild bilateral neural foraminal stenosis. There is mild central canal stenosis. L3-L4: The disc is bulging and has an annular fissure. There is severe bilateral facet joint osteoarthritis. There is mild bilateral neural foraminal stenosis. There is mild central canal stenosis. L4-L5: The disc is bulging. There is severe bilateral facet joint osteoarthritis. There is mild bilateral neural foraminal stenosis. There is mild central canal stenosis. L5-S1: The disc is bulging. There is severe bilateral facet joint osteoarthritis. There is mild right and moderate left neural foraminal stenosis. There is mild central canal stenosis. IMPRESSION: 1. Moderate left neural foraminal stenosis at L5-S1. Otherwise mild lumbar spondylosis. 2. Lumbar dextroscoliosis. Reviewed, dictated and finalized at location E. IMPRESSION: 1. Moderate left neural foraminal stenosis at L5-S1. Otherwise mild lumbar spon dylosis. 2. Lumbar dextroscoliosis.
--- OUTSIDE RECORDS SUMMARY | 2025-04-21 12:43 | XMS_ITS | Clinical Summary ---
Author Organization [facility] Address [address] [place] [address] Phone Care Team Providers Care Occupational Health Professional Name Role Phone Ruben Tilley MD Primary Care Provider [phone] Tresa Conklin APRN, SEMICONDUCTOR PACKAGES SEALER Unavailable [phone] Jamal Dillon DO Unavailable [phone] Allergies Active Allergy Reactions Criticality Noted [...] (1 of 2) 2010 Influenza Immunization (#1) 2025 SARS-COV-2 Immunization (3 - season) 2025 09/02/2020, 08/05/2020 Colonoscopy 03/29/2026 03/29/2016 Colorectal Cancer [...] Recently Relevant to Health Maintenance Care Teams Occupational Health Professional Relationship Specialty Start Date End Date Ruben Tilley MD PCP - General Internal Medicine 01/07/16 Tresa Conklin, DISTRIBUTOR OPERATOR, SEMICONDUCTOR PACKAGES SEALER Nurse Practitioner Advanced Practice Nurse 01/07/16 Jamal Dillon DO Consulting Physician Gastroenterology 03/11/16
== END 2025-04-21 12:41 | disposition home or self-care (01) ==
PROVIDERS: PCP Internal Medicine; Visit Provider Anesthesiology Pain Medicine
DX: M48.062 Spinal stenosis, lumbar region with neurogenic claudication (principal); M43.06 Spondylolysis, lumbar region; M41.86 Other forms of scoliosis, lumbar region
CPT/HCPCS: 72148

== ENCOUNTER 2025-05-06 09:29 | Outpatient (CLI) | payer MEDICARE, OTHER, SELFPAY ==
--- OUTSIDE RECORDS SUMMARY | 2025-05-06 10:08 | XMS_ITS | Clinical Summary ---
Author Organization [facility] Address [address] [place] [address] Phone Care Team Providers Care Procedure Rn Name Role Phone Ruben Tilley MD Primary Care Provider [phone] Tresa Conklin APRN, SALES AND PRODUCTION MANAGER Unavailable [phone] Jamal Dillon DO Unavailable [phone] Allergies Active Allergy Reactions Criticality Noted [...] Recently Relevant to Health Maintenance Care Teams Procedure Rn Relationship Specialty Start Date End Date Ruben Tilley MD PCP - General Internal Medicine 01/07/16 Tresa Conklin, FORCER MAKER, SALES AND PRODUCTION MANAGER Nurse Practitioner Advanced Practice Nurse 01/07/16 Jamal Dillon DO Consulting Physician Gastroenterology 03/11/16
--- OUTSIDE RECORDS SUMMARY | 2025-05-06 10:08 | XMS_ITS | Clinical Summary ---
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 Gender Identity Not on file Sexual Orientation [...] Plan of Treatment Not on file Insurance [facility] PPO 1971 [facility] [place] [id number] [facility] [place] [id number] Care Teams Netezza Developer Relationship Specialty Start Date End Date Danyel Leon MD [address] [place] [address] PCP - General Obstetrics and Gynecology 03/19/22 Danyel Leon MD [address] [place] [address] Referring Physician Obstetrics and Gynecology 02/24/22
[2025-05-06 10:17] LABS: Hematocrit 42.8 % (37.0-47.0); Hemoglobin 12.5 g/dL (12.0-15.0); Immature Granulocyte Percent A 0.5 % (0-0.5); Lymphocytes Absolute Auto 1.61 K/mm3 (0.9-3.2); Mean Corpuscular HGB Conc 29.2 g/dl (32-36); Mean Corpuscular Hemoglobin 29.1 pg (26-34); Mean Corpuscular Volume 99.8 fl (80-100); Nucleated Red Blood Cells Absolute Auto 0.000 K/mm3 (0.0-0.012); Nucleated Red Blood Cells Perc 0.0 % (0.0-0.2); Platelet Count Result 292 k/mm3 (150-375); Red Blood Count 4.29 M/mm3 (4.2-5.4); White Blood Count 6.1 K/mm3 (4.5-10.0)
[2025-05-06 10:37] LABS: Alanine Aminotransferase 19 U/L (6-35); Albumin Level 4.2 g/dL (3.5-5.1); Alkaline Phosphatase 64 U/L (38-126); Anion Gap 5 mmol/L (4-12); Aspartate Amino Transferase 30 U/L (14-36); Bilirubin,Total 0.4 mg/dL (0.2-1.3); Blood Urea Nitrogen 14 mg/dL (7-17); CRP 0.9 mg/dL (<1.0); Calcium 9.8 mg/dL (8.4-10.2); Carbon Dioxide 31 mmol/L (22-30); Chloride 101 mmol/L (98-107); Estimated Glomerular Filt Rate 46; Glucose 122 mg/dL (65-110); Potassium 4.4 mmol/L (3.4-5.0); Sodium 137 mmol/L (137-145); Total Protein 7.3 g/dL (6.3-8.2)
== END 2025-05-06 09:30 | disposition home or self-care (01) ==
PROVIDERS: PCP Internal Medicine; Visit Provider Nurse Practitioner Family
DX: M35.00 Sjogren syndrome, unspecified (principal); Z79.899 Other long term (current) drug therapy
CPT/HCPCS: 36415; 80053; 85025; 85652; 86140

== ENCOUNTER 2025-06-04 12:33 | Outpatient (CLI) | payer MEDICARE, OTHER, SELFPAY ==
--- NOTE | 2025-06-04 13:01 | ECG_ITS ---
Test Date: 2025-06-04 13:10:17 Measurements Intervals [place] Rate: 61 P: 50 MD: 136 QRS: 42 QRSD: 126 T: 15 QT: 438 QTc: 443 Interpretive Statements SINUS RHYTHM RIGHT BUNDLE BRANCH BLOCK MINIMAL Q WAVES- HIGH LATERAL LEADS BASELINE ARTIFACT- I, II, III, AVR, AVL, AVF ABNORMAL ECG No previous ECG available for comparison Electronically Signed On 06-04-2025 13:14:13 AGRICULTURAL EDUCATION TEACHER by Jesus Degroot D.O.
== END 2025-06-04 12:34 | disposition home or self-care (01) ==
LOC: ANHSURGERY 12:34
PROVIDERS: PCP Internal Medicine; Visit Provider Anesthesiology Pain Medicine
DX: R94.31 Abnormal electrocardiogram [ECG] [EKG] (principal); I10 Essential (primary) hypertension
CPT/HCPCS: 93005

== ENCOUNTER 2025-06-11 00:29 | Day surgery (SDC) | payer MEDICARE, OTHER, SELFPAY ==
--- NOTE | 2025-06-03 13:15 | PC.NURSE ---
[facility] has started construction of its new state of the art ER which will open Spring 2026. With this, we anticipate parking may be a challenge for some our surgical patients and families. Parking spaces are limited but are available for all Surgical, obstetrics, and ER patients sharing this lot. If you arrive and find you are having a hard time finding a parking space, please note that we understand the challenges, please drive around the hospital and park near Hospital Entrance 1. When you enter this entrance, you can ask a volunteer to direct or take you back to the surgical waiting area to check in. We appreciate everyone?s understanding of these expected challenges while we build for your future. Report to the Outpatient Waiting Room, entrance under the green pavilion located [address], at time _6:30 AM on date __06/11/25 . Planned Procedure Time: _8:30 AM .? Time changes happen often and if your time is changed the preop area will call you the afternoon before. - You and your visitor will be asked to self-screen and do not enter if you have any COVID symptoms. Please call surgeon if you need to reschedule. - A mask is optional within the hospital at this time. NOTHING TO EAT OR DRINK AFTER MIDNIGHT PER DR MUNGUIA Take only the following medications with a SIP of water on the morning of surgery: __GABAPENTIN,LEVOTHYROXINE_, EYE DROPS DO NOT STOP ANY OF YOUR OTHER PRESCRIPTION MEDICATIONS PRIOR TO SURGERY EXCEPT THE FOLLOWING Hold all vitamins and supplements for 3 days per anesthesiologist.LAST DOSE 06/07/25 Medications to discontinue per physician NONE Please no make-up, nail sami, hairspray, perfume, deodorant, or body powder the day of surgery.? No jewelry (including any body piercings) or valuables the day of surgery, leave them at home.? Please take a shower or bath the night before, AND the morning of, surgery with an antibacterial soap.PER DR MUNGUIA? Wear comfortable, loose fitting clothing.? Children are encouraged to wear pajamas. - Jewelry must be removed prior to entering the operating room.? Rings and piercings that are not removed may be cut off. - The hospital will not accept responsibility for valuables.? - Please leave all valuables, including medications, at home the day of surgery. If you are going home after surgery, a licensed pickup driver must drive you home.? - NO public transportation without another adult if you receive anesthesia. - We recommend that an adult stay with you for 24 hours following discharge. - We also recommend that you do not drive, make important decision, drink alcoholic beverages, or take any drugs that were not prescribed by your health care provider for at least 24 hours after your discharge time. For Pediatric surgeries, we recommend two adults accompany the child home. Follow any additional instructions given to you from your surgeon. Telephone instructions given to __PATIENT and asked if any additional questions and then verbalized understanding. Patient advised to call surgeon office or pre surgery nurse liaison [phone] if any additional questions.
[2025-06-03 13:37] VITALS: BMI 57.6
[2025-06-11] VITALS (10 sets, daily range): BP systolic 131–157; BP diastolic 55–92; PULSE 61–97; RESP 15–100; TEMP 36.1; O2SAT 93–100
--- NOTE | ~2025-06-11 | XR_ITS ---
EXAM/PROCEDURE: XR fluoroscopy no charge HISTORY: MINIMALLY INVASIVE LUMBAR DECOMPRESSION COMPARISON: None available. TECHNIQUE: Fluoroscopic images for procedure assistance Fluoroscopy time: 6 minutes 13 seconds DAP: 69.051 Narvaez per square centimeter IMPRESSION: Fluoroscopically assisted procedure. No radiologist present. See operative/procedure notes for complete evaluation. Reviewed, dictated and finalized at location A. [employer] PRINCIPAL IMPRESSION: Fluoroscopically assisted procedure. No radiologist present. See operative/proc edure notes for complete evaluation.
--- OUTSIDE RECORDS SUMMARY | 2025-06-11 00:31 | XMS_ITS | Clinical Summary ---
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 Gender Identity Not on file Sexual Orientation [...] Plan of Treatment Not on file Insurance [facility] Address: [facility] [id number] [place] [phone] [address] [facility] [phone] [address] [facility] [phone] Care Teams Speech Scientist Relationship Specialty Start Date End Date Danyel Leon MD [address] [place] [address] PCP - General Obstetrics and Gynecology 03/19/22 Danyel Leon MD [address] [place] [address] Referring Physician Obstetrics and Gynecology 02/24/22
--- OUTSIDE RECORDS SUMMARY | 2025-06-11 00:31 | XMS_ITS | Clinical Summary ---
Author Organization [facility] Address [address] [place] [address] Phone Care Team Providers Care Head Of It Name Role Phone Ruben Tilley MD Primary Care Provider [phone] Treas Conklin APRN, MILLER HELPER Unavailable [phone] Jamal Dillon DO Unavailable [phone] Allergies Active Allergy Reactions Criticality Noted [...] Recently Relevant to Health Maintenance Care Teams Head Of It Relationship Specialty Start Date End Date Ruben Tilley MD PCP - General Internal Medicine 01/07/16 Tresa Conklin, MACHINE SILVER STRIPPER, MILLER HELPER Nurse Practitioner Advanced Practice Nurse 01/07/16 Jamal Dillon DO Consulting Physician Gastroenterology 03/11/16
--- NOTE | 2025-06-11 07:30 | WPDHPUPDATE1 ---
History and Physical Update Update Date/Time: 06/11/25 07:30 History and Physical has been reviewed, including an updated exam of the patient. There are NO changes in the patient's condition. Risks, benefits, and alternatives have been discussed and questions answered. Patient agrees to proceed with procedure.
--- NOTE | 2025-06-11 07:31 | P.OP_ITS ---
Procedure Note - Detailed Date of Procedure 06/11/25 Pre-op Diagnosis lumbar stenosis Post-op Diagnosis Same Procedure Performed Bilateral Minimally Invasive Lumbar Decompression (MILD) at L3-4, L4-5 under Fluoroscopic Guidance. Surgeon Xu Foster MD Coordinator Of Rehabilitation Services None Anesthesia Other ([Moderate IV sedation/MAC] with local anesthetic infiltration in the prone position) Description of Procedure INFORMED CONSENT: Risks, benefits, and alternatives to the procedure were discussed in detail with the patient who expressed explicit understanding and consent to proceed. Risks discussed with the patient included but were not limited to risk of serious local or systemic infection, bleeding/bruising, epidural hematoma, dural puncture or tear resulting in CSF leak and acute or chronic post-dural puncture headache, scarring/deformity, immediate or delayed allergic reaction, decreased mobility, failure to treat pain, inadvertent neurologic injury resulting in increased pain, weakness/paralysis or numbness, inadvertent organ injury, need for additional surgery, allergic reaction, heart attack, stroke, seizure, coma, . Anesthetic risks were also briefly discussed by myself and the transit bus driver. The patient expressed understanding and consent to proceed, agreeing that potential benefits outweigh risk of harm. All materials required for the procedure were immediately available prior to procedure start. Site and side were confirmed with the patient, compared carefully to the patient chart and consent, and marked prior to transport to the operating room. Appropriate time out procedure was performed per protocol prior to procedure start. PROCEDURE IN DETAIL: The patient was brought to the operative suite and placed in the prone position. Appropriate ASA standard monitors were attached. Anesthesia was initiated without difficulty or event. Eyes were protected. Pressure points were padded with joints in neutral position. When appropriate, breasts and genitals were evaluated and protected. Eyes were checked and were f ree from undue pressure. Skin overlying the procedure site was marked with sterile marker. Surgical area was prepared in a typical sterile fashion with ChloraPrep and allowed to dry for at least 3 minutes prior to sterilely draping the surgical site. The lumbar spine was identified in the AP fluoroscopic view with slight cephalad tilt perfectly aligning the endplates at the targeted levels with spinous processes bisecting the transpedicular plane. After identifying the intended incision site approximately 1.5 levels inferior to the level of interest, the area was anesthetized by infiltration with no more than 10ml of a 1:1 admixture of 0.5% PF bupivacaine with epinephrine and 2% PF lidocaine with epinepherine via a 27- gauge needle after negative aspiration. A 22-gauge spinal needle was used to provide additional and adequate local anesthesia to the level of the interspinous ligament, ligamentum flavum and the periosteum of the lamina at the intended treatment levels. In the AP view, a #11 scalpel blade was used to create a single stab incision at the intended incision site on the targeted side. The Vertos MILD kit was opened and the included cannula and trocar assembly was advanced through the incision to contact the midportion of the right lamina just adjacent to the spinous process at L5. Once seated, the lateral view was used to gauge depth demonstrating the most anterior tip of the trocar posterior to the epidural space at all times. The braille duplicating machine operator-provided cannula stabilizer was placed over the trocar flush to the patient's lumbar flank. Cannula obturator with handle was removed. Included depth guide was then attached to the insertion port on the cannula and set to an intitial depth of 15 mm. The bone rongeur was advanced to the depth of the lumbar lamina at the targeted level. Depth gauge was then adjusted allowing rongeur tip to advance in the contralateral oblique view to the anterior border of the superior and inferior lamina at the respective intervertebral foramen. Multiple passes of the rongeur were used in the contralateral oblique view to remove single small portions of ligament and bone in a 360-degree distribution, approximately 3-5 passes on each lamina, until appropriate access to the superior and inferior attachments of the ligamentum flavum was created at the surgical level right L4-5. Each individual portion of bone removed was extracted, collected and discarded. Rongeur was removed and replaced with a tissue sculpter which was deployed from inferior to superior in the contralateral oblique view to delaminate the l igamentum flavum at the intended level with serial groupings of three passes each, 6-9 total per side treated. Tissue extracted was discarded. At no point did the rongeur or tissue sculpter violate the anterior border of the ligament as evidenced by intact interface at the ligament/epidural border. The same procedure was repeated in the exact same fashion, utilizing the initial stab incision, to effectively debulk the ligamentum flavum and decompress the central spinal canal on the right at L3-4, with similar results and no evidence of complication. The same exact procedure was then repeated in the exact same fashion, utilizing a new stab incision on the contralateral side, to effectively debulk the ligamentum flavum and decompress the central spinal canal on the left at L3-4, L4-5. Bone and tissue sculpters were withdrawn, obturator replaced and trocar removed in the lateral view, entirely and without difficulty. Hemostasis was obtained and confirmed. Benzoin was placed around the incision site(s) and Steri-Strips were placed in a eileen-crossing fashion across the wound(s), which were then covered with Telfa dressing and Tegaderm. The patient was converted to the supine position and transported to the recovery area having tolerated the procedure well with no evidence of complication. The patient was instructed to minimize weightbearing activity, including ambulation, for 48 hours, and to avoid bending, twisting at the waist, overhead work, reaching and lifting, pushing or pulling greater than 5-10 lbs for 48 hours with subsequent return to normal activity as tolerated. The patient is to maintain current dressing for 48 hours, then can remove the original dressing, leaving steri-strips in place until they come off on their own or are removed by their provider. Once removing the outer bandage, the patient will cover the incision with clean gauze and paper tape as needed, changing daily or when soiled. The patient understands they should avoid soaking or submerging the incision for 1 week and can resume showers after 48 hours. Instructions were provided to the patient in both verbal and written form, which the patient obtained, reviewed and signed prior to discharge. The patient was instructed to watch for signs of infection including fevers, chills, night sweats, severe headache, neck stiffness, new neurologic deficit, bowel or bladder changes, increased pain, discharge, bleeding, swelling, opening of or unusual warmth at the incision site. They are to call our office or report directly to the Emergency Department immediately should there be any signs/symptoms of complications such as the above or any other urgent/emergent changes in their condition. COMMENTS: None. COMPLICATIONS: None. DRAINS/PACKING: None. SPECIMEN: None. ESTIMATED BLOOD LOSS: 10 mL. IV FLUIDS: On chart. CONTRAST WASTED: 0 ml of Isovue 300M. Pathology None sent Complications No immediate complications Condition Stable Disposition PACU [facility] Billing Surgery - Charge Forward: Surgery Billing
--- NOTE | 2025-06-11 08:13 | WPDANESEPPF ---
Anes - Initial Pre Proc Eval Procedure: Operation Date: 06/11/25 08:30 Proposed Procedures p Minimally Invasive Lumbar Decompression Bilateral L4-5 Under Fluoroscopic Guidance with Possible Epidurogram - Xu Foster MD Date/Time: 06/11/25 08:13 Surgeon: Xu Foster MD Pre Op Diagnosis: lumbar stenosis Patient Data Age: 65 Gender: F Height: 1.6 m Weight: 154.5 kg Last Vital Signs Temp 97 F L 06/11/25 07:50 Pulse 72 06/11/25 07:50 Resp 16 06/11/25 07:50 BP 144/55 H 06/11/25 07:50 Pulse Ox 99 06/11/25 07:50 O2 Del Method Room Air 06/11/25 07:50 Allergies Allergy/AdvReac Type Severity Reaction Status Date / Time No Known Allergies Allergy Verified 06/11/25 07:56 Home Medications ?Medication ?Instructions ?Recorded ?Confirmed ?Type hydroxychloroquine 200 mg tablet 200 mg PO BID 11/24/22 06/11/25 History omega-3s 800 mg-dha 186.67 mg-epa 1 cap PO TID 11/24/22 06/11/25 History 560 mg-fish-vit D3 8.33 mcg capsule (De3 Dry Eye [place] Benefits) vit C,Y-Tz-ywopca-lutein-zeaxan 60 1 cap PO DAILY 11/24/22 06/11/25 History mg-13.5 mg-15 mg-2 mg-6 mg capsule (Healthy Eyes Lutein-Zeaxanthin) cyanocobalamin (vitamin B-12) 1,000 mcg PO DAILY 05/25/23 06/11/25 History 1,000 mcg capsule cholecalciferol (vitamin D3) 50 50 mcg PO DAILY 11/28/23 06/11/25 History mcg (2,000 unit) capsule fluticasone propionate 50 2 spray intranasal DAILY PRN 04/12/24 06/03/25 History mcg/actuation nasal Allergy Symptoms spray,suspension (Flonase Allergy Relief) lifitegrast 5 % eye drops in a 1 drp EACH EYE BID 04/12/24 06/03/25 History dropperette (Xiidra) metformin 1,000 mg tablet 1,000 mg PO BID #180 tabs 09/17/24 06/11/25 Rx tolterodine 2 mg tablet 2 mg PO DAILY #90 tabs 09/17/24 06/11/25 Rx Lactobacillus 25 billion 1 cap PO DAILY 10/01/24 06/11/25 History cell-Bifido 25 billion uylg-GBP-ecexx capsule levothyroxine 100 mcg tablet See Rx Instructions .Route 10/16/24 06/11/25 Rx .COMPLEX #90 tabs duloxetine 60 mg capsule,delayed 60 mg PO DAILY 90 days #90 caps 10/30/24 06/11/25 Rx release ferrous sulfate 325 mg (65 mg 325 mg PO DAILY #90 tabs 12/17/24 06/11/25 Rx iron) tablet gabapentin 300 mg capsule 300 mg PO BID 90 days #180 caps 12/31/24 06/11/25 Rx lisinopril 20 mg tablet 20 mg PO DAILY #90 tabs 03/21/25 06/11/25 Rx omeprazole 40 mg capsule,delayed 40 mg PO DAILY #90 caps 04/29/25 06/03/25 Rx release tramadol 50 mg tablet 50 mg PO PRN PRN pain 06/03/25 06/03/25 History Laboratory Tests 06/11/25 07:10 POC Capillary Glucose 100 mg/dl (65-105) Patient hx anesthesia problems: none Family hx anesthesia problems: none Results Review: All pre-operative results and documents have been reviewed as part of the pre-operative evaluation. 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 Sjogrens syndrome Katerin's disease Lumbago Open draining abdominal incision Missed x1 History of blood transfusion History of 2018 novel coronavirus disease (COVID-19) Suspected COVID-19 virus infection Arthritis Liver disease Obesity Hypothyroidism Diabetes type 2, controlled GERD (gastroesophageal reflux disease) YOANA (obstructive sleep apnea) CPAP Asthma exercise induced Hypertension Surgical History Surgical History History of bilateral tubal ligation History of thoracotomy Partial Thoracotomy History of nasal septoplasty Hx of tonsillectomy Right tibial fracture treated with intramedullary rodding History of x2 History of cholecystectomy Family History Family History Mother Hypertension COPD (chronic obstructive pulmonary disease) Kidney failure Heart problem Father Cerebrovascular accident Family history of diabetes mellitus in first degree relative Family history of malignant neoplasm of kidney Family history of heart disease in male family member before age 55 Cancer of pituitary gland CHF (congestive heart failure) Sibling Family history of diabetes mellitus in first degree relative sister and brother Hypertension brother Heart disease Cerebrovascular accident sister Heart problem sister Carotid body tumor sister Cirrhosis sister Hypercholesteremia brother Grandparent Diabetes mellitus Heart problem Other Family history of cardiovascular disease Social History Social History Social History: the patient lives with her and desires to have him as a durable power compliance attorney for healthcare. The patient desires to be a full code. She has 2 children. 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 The patient occasionally drinks alcohol especially on her birthday. she denies any marijuana or illicit drugs. She is a former smoker. Caffeine use: coffee 1 1/2 cups/day & iced tea Smoking packs per day: 1 Smoking cigarettes per day: 20.0 Years smoked: 15 Smoking pack-years: 15.00 Smoking status: Former smoker Tobacco type: cigarettes Second hand tobacco smoke exposure: Yes Smoking end date: 06/27/97 Alcohol intake: current Drinks per week: 2 Alcohol use details: SELDOM, 3 A YEAR Substance use: never Substance use type: does not use Last use: in high school Lack of Transportation: No Lack of Food: Never True Current Housing: I Have Housing Concerned About Future Housing: No Difficulty Paying Gas/Electric Bills: No Difficulty Paying for Meds: No Currently Unemployed: No Education: Trade/Vocational Certificate Difficulty w/ Childcare or Family Care: No Living arrangements: with family Additional living arrangements comments: Spouse Occupation/Education: occupation 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 Gender identity (if verbalized by the patient): Female Sexual Orientation (if Verbalized by the Patient): Straight or Heterosexual Spiritual care concerns: No Anes - Eval Final PreProcedure Day of Procedure 06/11/25 08:13 Patient weight: super morbidly obese Lungs: normal air movement Airway: Mallampati scale class III Neurological: alert and oriented Last oral intake: >/= 8 hours ASA classification: IV Emergent: no Anesthetic plan: proceed Anesthesia type and monitoring: general ETT and standard monitoring Results Review: All pre-operative results and documents have been reviewed as part of the pre-operative evaluation. BMI 60, HTN, hypothyroidism, DM fsbs 100. asthma, severe YOANA on CPAP, ex smoker, sjorens disease. Informed Consent: The patient's anesthetic plan and its attendant risks and benefits were discussed with the patient/family/POA. Questions were solicited and answers provided to the satisfaction of the patient/family/POA.
[2025-06-11] MEDS: ceFAZolin 3 GM/D5W 100 ML 100 ML IVPB (08:40)
[2025-06-11] MEDS: LACTATED RINGERS 1,000 ML 30 ML IV CONT (08:50)
[2025-06-11] MEDS: LIDO 2%/EPINEPHRINE 1:100,000 50 ML VIAL INFILTRATE (09:05)
[2025-06-11] MEDS: BUPIVACAINE/EPINEPHRINE 0.5% 50 ML VIAL INFILTRATE (09:06)
[2025-06-11] MEDS: oxyCODONE HCL (*CRX) 5 MG TAB IR PO (11:08)
== END 2025-06-11 11:50 | disposition home or self-care (01) ==
PROVIDERS: PCP Internal Medicine; Visit Provider Anesthesiology Pain Medicine
PROC: (CPT 0275T; principal; 2025-06-11 08:30)
DX: M48.061 Spinal stenosis, lumbar region without neurogenic claudication (principal); Z00.6 Encounter for examination for normal comparison and control in clinical research program; E11.9 Type 2 diabetes mellitus without complications; Z87.891 Personal history of nicotine dependence; E66.01 Morbid (severe) obesity due to excess calories; Z68.44 Body mass index [BMI] 60.0-69.9, adult
CPT/HCPCS: 0275T; 82948; 99199; A9270; C1889; J0330; J0690; J1100; J2004; J2405; J2704; J3010; J7120